=== PATIENT | male | born 1955 | race Caucasian/White ===

== ENCOUNTER → 2017-11-17 | Day surgery (SDC) | payer OTHER ==
[2017-11-16 08:26] VITALS: BMI 40.0
[~2017-11-17] VITALS: Ht 167.6 cm; Wt 112.3 kg
[~2017-11-17] MED LIST: ACET-1256 PO; AMLO-114 PO; ATOR10TA82 PO; ATROPINE SULFATE 0.1 MG/ML 5ML SYR IV PRN; BUPIVACAINE 0.5 % 5 MG/1 ML MPF 30ML VIAL ONE; CEFAZOLIN 2000MG IV PUSH 15 ML IV SCH; CONRAY 60% 50 ML VIAL ONE; EpHEDrine SULFATE INJ 50 MG/ML AMP IV PRN; FENTANYL CITRATE INJ 50 MCG/1 ML 2 ML VIAL IV PRN; FENTANYL CITRATE INJ 50 MCG/1 ML 2 ML VIAL ONE; HEPARIN SOD (PORCINE) 1000 UNIT/ML 10 ML VIAL ONE; HYDROmorphone INJ 0.5 MG/0.5 ML SYR IV PRN; IMD/2 PO; LACTATED RINGER'S 1000ML 1,000 ML IV SCH; LIDOCAINE HCL 2% 2 ML VIAL (20MG/ML) ONE; LIDOCAINE/EPINEPHRINE 1% 20 ML VIAL ONE; METF1TAB53 PO; MIDAZOLAM HCL 1 MG/ML 2ML VIAL ONE; ONDA-170 PO; ONDANSETRON INJ 2 MG/ML 2 ML VIAL IV PRN; OXYCODONE/ACETAMINOPHEN 5-325 TAB PO PRN; PROC1TAB5 PO; PROMETHAZINE HCL INJ 12.5 MG in SODIUM CHLORIDE 0.9% 50ML 50 ML IV PRN; PROPOFOL IV EMULSION 10 MG/ML 20 ML VIAL IV ONE; SODIUM CHLORIDE 0.9% 1000ML 1,000 ML IV SCH
[2017-11-17 07:07] VITALS: BP 160/77; PULSE 98; TEMP 36.6; O2SAT 95; Ht 167.6 cm; Wt 112.3 kg
--- NOTE | 2017-11-17 08:04 | History & Physical Bridge Note ---
H&P Re-Evaluation Bridge Note: I have examined the patient, reviewed the History & Physical and in the interval since the performance of the History & Physical I have noted the following changes of clinical significance: No changes noted
--- NOTE | 2017-11-17 09:17 | [facility] Post Operative Brief Note ---
Immediate Operative Summary Operative Date Nov 17, 2017. Pre-Operative Diagnosis Metastatic colorectal cancer; need for venous access Post-Operative Diagnosis Same as preop Procedure(s) Performed Insertion of Mediport into right internal jugular vein with real time ultrasound guidance and fluoroscopy Surgeon Dr. Duffy Office Helper Surgeon(s) Gina Carvajal PA-C Estimated Blood Loss 6 cc Findings Consistent with Post-Op Diagnosis Specimens none, as per surgeon Drains None Anesthesia Type MAC Complication(s) none Disposition Accompanied Pt To Recover: no Disposition: Recovery Room / PACU
--- NOTE | 2017-11-17 09:21 | [facility] Operative Report ---
Operative Report Operative Date Nov 17, 2017. Pre-Operative Diagnosis Metastatic colorectal cancer; need for venous access Post-Operative Diagnosis Same Procedure(s) Performed Right internal jugular vein port placement with real-time ultrasound guidance and fluoroscopy Surgeon Dr. Duffy Dyno Technician Surgeon(s) Gina Carvajal PA-C Estimated Blood Loss 6 cc Findings Right internal jugular vein accessed with real-time ultrasound guidance. Port placed with catheter tip at cavoatrial junction confirmed by fluoroscopy. Specimens none, as per surgeon Drains None Anesthesia MAC/local Complication(s) None Disposition Recovery Room / PACU Indications 62-year-old male with metastatic colorectal cancer. He had a prior port in the left subclavian vein, however he developed thrombosis and it was removed. Plan for port placement. The risks of the procedure were discussed, all questions were answered, and the patient agreed to proceed with surgery as planned. Description of Procedure The patient was properly identified, consented, and taken to the operating room where he was placed in the supine position with both arms tucked and a shoulder roll placed vertically. Monitored anesthesia care was induced. SCDs and a safety belt were placed. Preoperative antibiotics were administered. The patient's chest and neck was prepped and draped in the standard sterile fashion. Surgical timeout was performed and all parties were in agreement that this was the correct patient and procedure to be performed and we continued as planned. The patient was placed in Trendelenburg position. Local anesthetic was injected along the skin incision. Using real-time ultrasound guidance the right internal jugular vein was accessed using the access needle. The wire was placed and the needle was removed. Fluoroscopy confirmed placement into the internal jugular vein extending into the superior vena cava. A transverse skin incision was made in the right chest and a pocket was created for the port. A subcutaneous tunnel was created and the catheter was brought from the neck incision into the chest incision. The dilator and peel-away sheath were inserted over the wire. The catheter was then inserted through the peel-away sheath and fluoroscopy confirmed placement into the superior vena cava. The catheter was cut and attached to the port. The port was secured into place with 3-0 Prolene sutures. A final x-ray revealed good placement of the port. The wound was irrigated and hemostasis was confirmed. The skin was closed with interrupted 3-0 Vicryl deep dermal sutures, followed by 4-0 Monocryl running subcuticular suture. Dermabond was placed over the wound. The port was accessed and ericka blood easily and flushed easily. It was flushed with heparinized saline. The patient taken to the PACU where he recovered without apparent incident. All sponge, instrument and needle counts were correct at the conclusion of the procedure. The patient tolerated the procedure well. The physician's engineer first assistant was present and scrubbed for the entirety of the case , and was essential in positioning the patient, prepping and draping, retraction and exposure, placement of the port, closure of the wounds, and placement of dressings. I attest to the content of the Intraoperative Record and any orders documented therein. Any exceptions are noted below.
--- NOTE | 2017-11-17 09:26 | [facility] Operative Report ---
Operative Report Operative Date Nov 17, 2017. Pre-Operative Diagnosis Metastatic colorectal cancer; need for venous access Surgeon Dr. Duffy Findings Real-time ultrasound guidance was used to access the right internal jugular vein. Fluoroscopy was used to confirm placement of the catheter to the cavoatrial junction. A total of 25 seconds of fluoroscopy time was used. Disposition Recovery Room / PACU I attest to the content of the Intraoperative Record and any orders documented therein. Any exceptions are noted below.
--- NOTE | 2017-11-17 09:31 | Discharge Instructions ---
Discharge Instructions Date of Service Nov 17, 2017. Admission Reason for Admission: Adenocarcinoma Sigmoid Colon, Type 2 Diabetes Discharge Discharge Diagnosis / Problem: Adenocarcinoma Sigmoid Colon, Type 2 Diabetes Discharge Goals Goal(s): Decrease discomfort, Improve function Activity Recommendations Activity Limitations: as noted below Lifting Limitations: no more than 10 pounds Exercise/Sports Limitations: gradually increase as tolerated May Resume Sexual Activity: when tolerated Shower/Bathe: tomorrow Driving or Machine Use: resume 1 day after discharge . Instructions / Follow-Up Instructions / Follow-Up Please contact the General Surgery [facility] at [phone] with any questions or concerns. You have surgical glue, Dermabond, over your incisions. You may shower tomorrow , but please do not soak or scrub your incisions. You may use over the counter pain medication as needed for pain control. Please use as directed. Current Hospital Diet Patient's current hospital diet: Discharge Diet Recommended Diet: Regular Diet Procedures Procedures Performed: Insertion of Mediport into right internal jugular vein with real time ultrasound guidance and fluoroscopy Pending Studies Studies pending at discharge: no Medical Emergencies . Who to Call and When: Medical Emergencies: If at any time you feel your situation is an emergency, please call 911 immediately. . Non-Emergent Contact Non-Emergency issues call your: Primary Care Provider, Surgeon Call Non-Emergent contact if: temperature is above 101.5, your pain is not controlled, wound has increased drainage, wound has increased redness . "Provider Documentation" section prepared by Do Carvajal. .
--- NOTE | 2017-11-17 09:59 | DIAGNOSTIC IMAGING REPORT ---
CHEST ONE VIEW PORTABLE CLINICAL HISTORY: s/p port placement; pt in PACU tube position COMPARISON STUDY: No previous studies for comparison. FINDINGS: Central catheter place in superior vena cava. No evidence pneumothorax. The lungs are considered clear. IMPRESSION: Central catheter placed in the superior vena cava. No evidence for pneumothorax. The above report was generated using voice recognition software. It may contain grammatical, syntax or spelling errors. Electronically signed by: Gene Mantilla M.D. 11/17/2017 9:58 AM Dictated Date/Time: 11/17/2017 9:57 AM
[2017-11-17 10:10] VITALS: BP 120/68; PULSE 80; TEMP 36.8; O2SAT 92
[2017-11-17 10:40] VITALS: BP 139/71; PULSE 81; TEMP 36.5; O2SAT 94
== END | disposition home or self-care (01) ==
LOC: C.ACU 06:36
PROVIDERS: ATTEND Surgery
DX: C78.5 Secondary malignant neoplasm of large intestine and rectum (principal); G47.33 Obstructive sleep apnea (adult) (pediatric); Z86.718 Personal history of other venous thrombosis and embolism; E66.01 Morbid (severe) obesity due to excess calories; E11.9 Type 2 diabetes mellitus without complications; E78.5 Hyperlipidemia, unspecified; I10 Essential (primary) hypertension; Z98.890 Other specified postprocedural states; Z79.899 Other long term (current) drug therapy; Z68.41 Body mass index [BMI] 40.0-44.9, adult

== ENCOUNTER 2020-09-26 16:46 | Inpatient (IN) ==
[2020-09-26] MEDS ORDERED: SODIUM CHLORIDE 0.9% 500 ML IV SCH (18:15)
[2020-09-26] MEDS ORDERED: SODIUM CHLORIDE 0.9% 1000ML 1,000 ML IV SCH ×2 (18:15→23:51)
[2020-09-26] MEDS ORDERED: ONDANSETRON INJ 2 MG/ML 2 ML VIAL IV STA (18:19)
[2020-09-26] MEDS ORDERED: diphenhydrAMINE 50 MG/ML VIAL IV STA (18:19)
[2020-09-26 19:01] LABS: Hematocrit (blood only) 39.7 % (42-52); Hemoglobin 12.8 g/dL (14.0-18.0); Mean Corpuscular Hemoglobin 32.5 pg (25-34); Mean Corpuscular Hgb Conc 32.2 g/dL (32-36); Mean Corpuscular Volume 100.8 fL (80-100); Nucleated RBC # (auto) 0.02 K/uL (0-0); Nucleated RBC % (auto) 1.1 %; RDW Coefficient of Variation 16.3 % (11.5-14.5); RDW Standard Deviation 59.7 fL (36.4-46.3); Red Blood Count 3.94 M/uL (4.7-6.1); White Blood Count 1.78 K/uL (4.8-10.8)
[2020-09-26 19:24] LABS: BUN Creatinine Ratio 10.6 (10-20); Calcium 8.9 mg/dl (8.5-10.1); Creatinine Clr Calc Pharmacy 42.3 ml/min; Est GFR (African American) 40.5; Est GFR (Non-African American) 34.9; Potassium 4.4 mmol/L (3.5-5.1)
[2020-09-26 19:27] LABS: Albumin Globulin Ratio 0.7 (0.9-2); Bilirubin,Total 0.6 mg/dl (0.2-1); Globulin 4.2 gm/dl (2.5-4.0); Total Protein 7.2 gm/dl (6.4-8.2)
[2020-09-26] MEDS ORDERED: SODIUM CHLORIDE 0.9% 1000ML 500 ML IV ONE ×2 (19:33→22:12)
[2020-09-26] MEDS ORDERED: CEFEPIME 2,000 MG/20 ML VIAL IV STA (19:44)
[2020-09-26 19:57] LABS: Mean Platelet Volume 10.5 fL (7.4-10.4); Platelet Count 74 K/uL (130-400)
[2020-09-26 19:58] LABS: Immature Granulocytes # (auto) 0.01 K/uL (0.00-0.02); Immature Granulocytes % (auto) 0.6 %; Lymphocytes # (auto) 0.59 K/uL (1.2-3.4); Lymphocytes % (auto) 33.1 %; Monocytes # (auto) 0.12 K/uL (0.11-0.59); Monocytes % (auto) 6.7 %; Neutrophils # (auto) 1.06 K/uL (1.4-6.5); Neutrophils % (auto) 59.6 %
--- NOTE | 2020-09-26 22:13 | Emergency Department Note ---
Impression & Plan Sepsis, Elevated lactic acid level, Colon carcinoma metastatic to multiple sites ED Provider Note NAME: BRENNAN GAMBINO AGE: 65 SEX: M ARRIVES VIA: Walk-In INFORMANT: Patient, ED PROVIDER(S): Nancy Marin MD CHIEF COMPLAINT: Allergic reaction, chemo PLAN: Disposition: Inpatient Condition: Guarded Referral: Hospitalist MEDICAL DECISION MAKING: This patient was evaluated and appeared to be in no significant distress. Patient was given 50 mg of IV Benadryl and hydrated with normal saline solution. Patient's laboratory work is concerning for a creatinine of 1.98 and a lactate of 6.8. Blood cultures are pending. Patient was medicated with 2 g of IV cefepime. WBC is 1.78. Covid swab is negative. Patient's case was discussed with the hospitalist service who will evaluate the patient for further management. On my reevaluation of the patient, he was tachycardic at 120 bpm. He was warm to touch and seem to have tachypnea. His oxygen saturations remained stable on room air. Patient's temperature was 99.5. He was given 1 g of p.o. Tylenol, IV normal saline solution bolus of 1 L. Triage Nursing notes reviewed. Additional history obtained from Prior medical records reviewed Vital Signs: reviewed and remarkable for tachycardia Differential diagnosis: Viral syndrome, line infection, medication reaction, otitis, pharyngitis, pneumonia, influenza, meningitis, urinary tract infection, sepsis, bacteremia, as well as other pathologies. ER treatment provided: IV NSS IV cefepime PO Tylenol Diagnostics interpreted by me: ECG: ST at 122 bpm, normal ST segment, normal QTc 416, no PVC, no PAC Cardiac Monitoring: an order for cardiac monitoring was placed and pt was noted to be in a ST at 105 bpm Laboratory studies: See below Consultation(s): hospitalist HPI: 65/M arrives for evaluation of "allergic reaction" to chemo today. Pt has stage 4 colon CA with mets to lung and liver. He was given chemo at the cancer center today and then sent home with a different medication infusing through his port. On his way home he developed chills and nausea. He contacted the cancer center and turned off the chemo. Since that time the pt has felt improved. He states he did have one episode of "sweats" in the waiting room. He denies fever, CP, new cough, abd pain, V/d. He denies COVID exposure. ROS: See above HPI for pertinent positives & negatives. A total of 10 systems reviewed and were otherwise negative. PAST MEDICAL HISTORY:See Below PAST SURGICAL HISTORY:See Below FAMILY HISTORY:See Below SOCIAL HISTORY:See Below HOME MEDICATIONS:See Below ALLERGIES:See Below VITALS:See Below PHYSICAL EXAMINATION: Vital signs reviewed. General: Chronically ill appearing 65 yo male, in no significant distress. HEENT: No scleral icterus, PERRLA, neck supple. Atraumatic. Cardiovascular: tachycardic but regular, no extra sounds. Pulmonary: Clear to auscultation bilaterally, increased work of breathing. Abdomen: Soft, obese, nontender, nondistended, positive bowel sounds. Musculoskeletal: Atraumatic, no peripheral edema. Neurologic: Patient awake alert and oriented x 3 Skin: Warm, dry, no rash I have personally spent greater than 45 minutes of critical care time in the direct management of this patient. This includes bedside care, interpretation of diagnostic studies, and testing, discussion with consultants, patient, and family members, and other required patient management activities. This 45 minutes is in excess of all separately billable procedures. Nancy Marin MD Past Med/Surg History Medical History Colon carcinoma metastatic to multiple sites Diabetes Dyslipidemia Social History Smoking Status: Never smoker Preferred Language: Sammarinese Feels Safe at Home: Yes Allergies Allergies Allergy/AdvReac Type Severity Reaction Status Date / Time No Known Allergies Allergy Unverified 09/26/20 20:59 Home Meds Home Medications Medication Instructions Recorded Confirmed acetaminophen [Tylenol Extra 1,000 mg PO Q6H PRN 09/26/20 09/26/20 Strength] albuterol sulfate [Ventolin HFA] 2 - 3 puff INHALATION .Q2-3HRS PRN 09/26/20 09/26/20 amlodipine 10 mg PO DAILY 09/26/20 09/26/20 atorvastatin 10 mg PO DAILY 09/26/20 09/26/20 empagliflozin [Jardiance] 10 mg PO DAILY 09/26/20 09/26/20 metformin 1,000 mg PO BID 09/26/20 09/26/20 Results & Data (ED) Vital Signs Vital Signs - 24 hr 09/26/20 16:57 09/26/20 18:38 09/26/20 18:52 Temperature 37.3 C Temperature Source Temporal Artery Scan Pulse Rate 127 H 105 H 105 H Pulse Rate from SpO2 Sensor 104 H 105 H Respiratory Rate 18 26 H 28 H Respiratory Effort / Characteristics Non-Labored Spontaneous Respiratory Depth Normal Respiratory Pattern Regular Blood Pressure 107/63 91/51 L Blood Pressure Mean 77 64 Blood Pressure Position Sitting Pulse Oximetry 93 91 91 Oxygen Delivery Method Room Air Sepsis Recent Fever Within 48 Hours No Sepsis New/Unexplained Change in Mental Status N/A Sepsis Action Taken by Nursing No Action Required 09/26/20 19:00 09/26/20 19:01 09/26/20 19:30 Temperature Temperature Source Pulse Rate 102 H 103 H 104 H Pulse Rate from SpO2 Sensor 102 H 105 H 104 H Respiratory Rate 27 H 26 H 15 Respiratory Effort / Characteristics Respiratory Depth Respiratory Pattern Blood Pressure 98/51 L Blood Pressure Mean 66 Blood Pressure Position Pulse Oximetry 90 90 Oxygen Delivery Method Sepsis Recent Fever Within 48 Hours Sepsis New/Unexplained Change in Mental Status Sepsis Action Taken by Nursing 09/26/20 19:31 09/26/20 19:32 09/26/20 19:33 Temperature Temperature Source Pulse Rate 105 H 106 H 107 H Pulse Rate from SpO2 Sensor 105 H 107 H 106 H Respiratory Rate 14 24 24 Respiratory Effort / Characteristics Respiratory Depth Respiratory Pattern Blood Pressure 107/58 L Blood Pressure Mean 74 Blood Pressure Position Pulse Oximetry Oxygen Delivery Method Sepsis Recent Fever Within 48 Hours Sepsis New/Unexplained Change in Mental Status Sepsis Action Taken by Nursing 09/26/20 20:00 09/26/20 20:01 09/26/20 20:30 Temperature Temperature Source Pulse Rate 104 H 105 H 109 H Pulse Rate from SpO2 Sensor 105 H 105 H 109 H Respiratory Rate 29 H 29 H 30 H Respiratory Effort / Characteristics Respiratory Depth Respiratory Pattern Blood Pressure 110/57 L 110/62 Blood Pressure Mean 74 78 Blood Pressure Position Pulse Oximetry 96 97 97 Oxygen Delivery Method Sepsis Recent Fever Within 48 Hours Sepsis New/Unexplained Change in Mental Status Sepsis Action Taken by Nursing 09/26/20 20:31 09/26/20 21:00 09/26/20 21:01 Temperature Temperature Source Pulse Rate 110 H 115 H 113 H Pulse Rate from SpO2 Sensor 110 H Respiratory Rate 30 H 31 H 30 H Respiratory Effort / Characteristics Respiratory Depth Respiratory Pattern Blood Pressure 124/62 Blood Pressure Mean 82 Blood Pressure Position Pulse Oximetry 97 Oxygen Delivery Method Sepsis Recent Fever Within 48 Hours Sepsis New/Unexplained Change in Mental Status Sepsis Action Taken by Nursing 09/26/20 21:30 09/26/20 21:31 09/26/20 22:00 Temperature Temperature Source Pulse Rate 119 H 120 H 126 H Pulse Rate from SpO2 Sensor 119 H 120 H Respiratory Rate 30 H 25 H 22 Respiratory Effort / Characteristics Respiratory Depth Respiratory Pattern Blood Pressure 127/69 140/120 H Blood Pressure Mean 88 126 Blood Pressure Position Pulse Oximetry 92 92 Oxygen Delivery Method Sepsis Recent Fever Within 48 Hours Sepsis New/Unexplained Change in Mental Status Sepsis Action Taken by Nursing 09/26/20 22:01 09/26/20 22:09 09/26/20 22:10 Temperature Temperature Source Pulse Rate 127 H 125 H 126 H Pulse Rate from SpO2 Sensor Respiratory Rate 18 38 H Respiratory Effort / Characteristics Respiratory Depth Respiratory Pattern Blood Pressure 149/78 H Blood Pressure Mean 101 Blood Pressure Position Pulse Oximetry Oxygen Delivery Method Sepsis Recent Fever Within 48 Hours Sepsis New/Unexplained Change in Mental Status Sepsis Action Taken by Nursing 09/26/20 22:30 09/26/20 22:31 09/26/20 22:42 Temperature Temperature Source Pulse Rate 123 H 124 H 121 H Pulse Rate from SpO2 Sensor 122 H Respiratory Rate 38 H 37 H 23 Respiratory Effort / Characteristics Respiratory Depth Respiratory Pattern Blood Pressure 101/63 107/63 Blood Pressure Mean 75 77 Blood Pressure Position Pulse Oximetry 90 Oxygen Delivery Method Sepsis Recent Fever Within 48 Hours Sepsis New/Unexplained Change in Mental Status Sepsis Action Taken by Nursing 09/26/20 23:00 09/26/20 23:01 Temperature Temperature Source Pulse Rate 122 H 123 H Pulse Rate from SpO2 Sensor 121 H 123 H Respiratory Rate 34 H 33 H Respiratory Effort / Characteristics Respiratory Depth Respiratory Pattern Blood Pressure 129/77 Blood Pressure Mean 94 Blood Pressure Position Pulse Oximetry 90 95 Oxygen Delivery Method Sepsis Recent Fever Within 48 Hours Sepsis New/Unexplained Change in Mental Status Sepsis Action Taken by [facility] Medications Current Medication List: was personally reviewed by me Laboratory Data Attestation: I reviewed the patient's lab results. Result diagrams: 09/26/20 18:29 09/26/20 18:29 Lab Results 09/26/20 09/26/20 09/26/20 Range/Units 18:29 18:29 18:29 WBC 1.78 L (4.8-10.8) K/uL RBC 3.94 L (4.7-6.1) M/uL Hgb 12.8 L (14.0-18.0) g/dL Hct 39.7 L (42-52) % MCV 100.8 H (80-100) fL MCH 32.5 (25-34) pg MCHC 32.2 (32-36) g/dL RDW Std Deviation 59.7 H (36.4-46.3) fL RDW Coeff of Jeff 16.3 H (11.5-14.5) % Plt Count 74 L (130-400) K/uL MPV 10.5 H (7.4-10.4) fL Immature Gran % (Auto) 0.6 % Neut % (Auto) 59.6 % Lymph % (Auto) 33.1 % Dale % (Auto) 6.7 % Eos % (Auto) 0.0 % Baso % (Auto) 0.0 % Neut # (Auto) 1.06 L (1.4-6.5) K/uL Lymph # (Auto) 0.59 L (1.2-3.4) K/uL Dale # (Auto) 0.12 (0.11-0.59) K/uL Eos # (Auto) 0.00 (0-0.5) K/uL Baso # (Auto) 0.00 (0-0.2) K/uL Immature Gran # (Auto) 0.01 (0.00-0.02) K/uL Absolute Nucleated RBC 0.02 H (0-0) K/uL Nucleated RBC % (auto) 1.1 % Sodium 138 (136-145) mmol/L Potassium 4.4 (3.5-5.1) mmol/L Chloride 107 (98-107) mmol/L Carbon Dioxide 21 (21-32) mmol/L Anion Gap 10.0 (3-11) BUN 21 H (7-18) mg/dl Creatinine 1.98 H (0.6-1.4) mg/dl Est Cr Clr Drug Dosing 42.3 ml/min Est GFR ( Amer) 40.5 Est GFR (Non-Af Amer) 34.9 BUN/Creatinine Ratio 10.6 (10-20) Glucose 219 H (70-99) mg/dl Lactate 6.8 H* (0.4-2.0) mmol/L Calcium 8.9 (8.5-10.1) mg/dl Total Bilirubin 0.6 (0.2-1) mg/dl AST 41 H (15-37) U/L ALT 35 (12-78) U/L Alkaline Phosphatase 134 H (45-117) U/L Total Protein 7.2 (6.4-8.2) gm/dl Albumin 3.0 L (3.4-5.0) gm/dl Globulin 4.2 H (2.5-4.0) gm/dl Albumin/Globulin Ratio 0.7 L (0.9-2) COVID-19 Eval Order SARS-CoV-2, RNA, NAAT (NEGATIVE) 09/26/20 09/26/20 09/26/20 Range/Units 18:39 18:39 21:10 WBC (4.8-10.8) K/uL RBC (4.7-6.1) M/uL Hgb (14.0-18.0) g/dL Hct (42-52) % MCV (80-100) fL MCH (25-34) pg MCHC (32-36) g/dL RDW Std Deviation (36.4-46.3) fL RDW Coeff of Jeff (11.5-14.5) % Plt Count (130-400) K/uL MPV (7.4-10.4) fL Immature Gran % (Auto) % Neut % (Auto) % Lymph % (Auto) % Dale % (Auto) % Eos % (Auto) % Baso % (Auto) % Neut # (Auto) (1.4-6.5) K/uL Lymph # (Auto) (1.2-3.4) K/uL Dale # (Auto) (0.11-0.59) K/uL Eos # (Auto) (0-0.5) K/uL Baso # (Auto) (0-0.2) K/uL Immature Gran # (Auto) (0.00-0.02) K/uL Absolute Nucleated RBC (0-0) K/uL Nucleated RBC % (auto) % Sodium (136-145) mmol/L Potassium (3.5-5.1) mmol/L Chloride (98-107) mmol/L Carbon Dioxide (21-32) mmol/L Anion Gap (3-11) BUN (7-18) mg/dl Creatinine (0.6-1.4) mg/dl Est Cr Clr Drug Dosing ml/min Est GFR ( Amer) Est GFR (Non-Af Amer) BUN/Creatinine Ratio (10-20) Glucose (70-99) mg/dl Lactate 6.7 H* (0.4-2.0) mmol/L Calcium (8.5-10.1) mg/dl Total Bilirubin (0.2-1) mg/dl AST (15-37) U/L ALT (12-78) U/L Alkaline Phosphatase (45-117) U/L Total Protein (6.4-8.2) gm/dl Albumin (3.4-5.0) gm/dl Globulin (2.5-4.0) gm/dl Albumin/Globulin Ratio (0.9-2) COVID[facility]19 [facility] SARS-[facility]-2, RNA, NAAT NEGATIVE (NEGATIVE) Administered Medications Sodium Chloride (Nss 1000ml) 1,000 mls @ 125 mls/hr IV .Q8H ELBERT Stop: 09/27/20 02:14 Last Infusion: 09/26/20 22:17 Dose: 0 mls/hr Documented by: [id number] Admin: 09/26/20 19:38 Dose: 125 mls/hr Documented by: [id number] Discontinued Medications Acetaminophen (Acetaminophen 500 Mg Tab) 1,000 mg PO NOW STA Stop: 09/26/20 22:22 Last Admin: 09/26/20 22:50 Dose: 1,000 mg Documented by: [id number] Diphenhydramine HCl (Diphenhydramine 50 Mg/Ml Vial) 50 mg IV NOW STA Stop: 09/26/20 18:20 Last Admin: 09/26/20 18:51 Dose: 50 mg Documented by: [id number] Sodium Chloride (Nss) 500 mls @ 999 mls/hr IV .Q31M ELBERT Stop: 09/26/20 18:45 Last Infusion: 09/26/20 19:22 Dose: 0 mls/hr Documented by: [id number] Admin: 09/26/20 18:46 Dose: 999 mls/hr Documented by: [id number] Sodium Chloride (Nss 1000ml) 500 mls @ 999 mls/hr IV .Q31M ONE Stop: 09/26/20 20:03 Last Infusion: 09/26/20 20:15 Dose: 0 mls/hr Documented by: [id number] Admin: 09/26/20 19:41 Dose: 999 mls/hr Documented by: [id number] Cefepime HCl (Maxipime) 2,000 mg in 20 mls @ 5 mls/min IV NOW STA; Protocol Stop: 09/26/20 19:47 Last Admin: 09/26/20 19:52 Dose: 5 mls/min Documented by: [id number] Sodium Chloride (Nss 1000ml) 500 mls @ 999 mls/hr IV .Q31M ONE Stop: 09/26/20 22:42 Last Admin: 09/26/20 22:17 Dose: 999 mls/hr Documented by: [id number] Ondansetron HCl (Ondansetron Inj 2 Mg/Ml 2 Ml Vial) 4 mg IV NOW STA Stop: 09/26/20 18:20 Last Admin: 09/26/20 18:51 Dose: 4 mg Documented by: [id number] Discharge Plan Visit Data Chief Complaint: Allergic Reaction Stated Complaint: ALLERGIC REACTION, DR REF OVER ED Provider: Nancy Marin Discharge Problem: Sepsis, Elevated lactic acid level, Colon carcinoma metastatic to multiple sites Discharge Instructions Interventions: ED Discharge Assessment Last Done: 09/26/20 23:03 Forms [facility] Prescriptions Prescriptions: No Action atorvastatin 10 mg tablet 10 mg PO DAILY RF: 0 amlodipine 10 mg tablet 10 mg PO DAILY RF: 0 metformin 1,000 mg tablet 1,000 mg PO BID RF: 0 albuterol sulfate [Ventolin HFA] 90 mcg/actuation HFA aerosol inhaler 2 - 3 puff INHALATION .Q2-3HRS PRN (Reason: Shortness Of Breath Or Wheezing) RF: 0 Jardiance 10 mg tablet 10 mg PO DAILY RF: 0 acetaminophen [Tylenol Extra Strength] 500 mg Tablet 1,000 mg PO Q6H PRN (Reason: Pain) RF: 0 Referrals Referrals: Geronimo Valdes [Primary Care Provider] - Discharge Problem: Sepsis Qualifiers: Sepsis type: sepsis due to unspecified organism Sepsis acute organ dysfunction status: unspecified Qualified Code(s): A41.9 - Sepsis, unspecified organism
[2020-09-26] MEDS ORDERED: ACETAMINOPHEN 500 MG TAB PO STA (22:21)
--- NOTE | 2020-09-26 22:39 | History & Physical Report ---
Date of Service September 26, 2020 Assessment & Plan (1) Sepsis: Patient is a 65 year old male with PMHx Metastatic Colorectal Cancer, HTN, HLD, DM2, HERNAN who presented after having nausea and chills while receiving his chemotherapy. Severe Sepsis in Immunocompromised patient -Patient initially with hypothermia, tachycardia, tachypnea, WBC 1.78k/uL, Lactate 6.8 -ANC 1061 cells/uL Mild Neutropenia -3500ml NSS bolus, 50mg Benadryl, 1g Tylenol, and 2g Cefepime in ED -While possible that patient's symptoms were secondary to chemotherapy, with elevated lactate and other signs of sepsis will cover empirically -No obvious signs of infection, would continue to monitor patients port closely -Received a dose of Cefepime in ED, start empiric Vancomycin and Zosyn -Blood cultures pending -Will give 1L bolus LR and then NSS 100ml/hr -Hold home amlodipine ANA -Creatinine elevated 1.98 on admission, base ~1 -Suspect pre-renal and expect improvement with appropriate fluid resuscitation -BMP in AM DM2 -Hold home Jardiance and Metformin -Will cover with SSI inpatient, consider basal bolus if sugars run high HLD -Continue home atorvastatin HERNAN -CPAP qhs Dispo: M/S Telemetry for closer monitoring, need for IV antibiotics. FEN: DM2 diet, NSS 100ml/hr DVT: Heparin TID, once renal function improves consider change to Enoxaparin for active cancer pt Code: Conditional - NO INTUBATION, okay for CPR (2) Colon carcinoma metastatic to multiple sites: (3) Dyslipidemia: (4) Diabetes: History of Present Illness Chief Complaint: Nausea and Chills Primary Care Provider: Geronimo Valdes Patient is a 65 year old male with PMHx Metastatic Colorectal Cancer, HTN, HLD, DM2, HERNAN who presented after having nausea and chills while receiving his chemotherapy. Patient notes that he has been on his current regiment of chemotherapy since 09/12/20 and that he had gone to his oncologists office today for his chemo infusion bag. He notes he was sent home with the infusion (typically lasting 36 hours), but shortly after felt sweaty and had chills. He notes that his temperature taken at that time was 94F. He called his oncologist Dr. Zabala's office and was instructed to stop his infusion and to present to the ED for evaluation. He notes that after stopping the infusion his symptoms significantly improved. He states that he has had similar issues in the past with chemotherapy "a few years ago." Currently he denies any chest pain, shortness of breath, worsening cough (notes a chronic ongoing since prior to starting chemotherapy), abdominal pain, diarrhea, dysuria, joint pain. Med Hx - Metastatic Colorectal Cx, HTN, HLD, DM2, HERNAN Surg Hx - Partial colectomy 1994, Soc Hx - No tobacco or illicit drug use. 1-2 beers/month Fam Hx - Father passed from CO at 58, Mother passed from CHF exacerbation 70's Allergies Allergy/AdvReac Type Severity Reaction Status Date / Time No Known Allergies Allergy Unverified 09/26/20 20:59 Home Medications Medication Instructions Recorded Confirmed Type acetaminophen [Tylenol Extra 1,000 mg PO Q6H PRN 09/26/20 09/26/20 History Strength] albuterol sulfate [Ventolin HFA] 2 - 3 puff INHALATION .Q2-3HRS PRN 09/26/20 09/26/20 History amlodipine 10 mg PO DAILY 09/26/20 09/26/20 History atorvastatin 10 mg PO DAILY 09/26/20 09/26/20 History empagliflozin [Jardiance] 10 mg PO DAILY 09/26/20 09/26/20 History metformin 1,000 mg PO BID 09/26/20 09/26/20 History Past Med/Surg History Medical History Colon carcinoma metastatic to multiple sites Diabetes Dyslipidemia Social History Smoking Status: Never smoker Second Hand Exposure: Yes; Do You Dip or Chew Tobacco: No; Tobacco Cessation Education Requested by Patient: No Hx Alcohol Use: No Hx Substance Use: No Preferred Language: Kinyarwanda Dancing Master Required: No Beliefs That Will Affect Care: None Current Living Situation: Alone Other Information That Helps Us Care for You: No Feels Safe at Home: Yes Safety Concerns: Feels Safe At This Time Assistive Devices: Oxygen - Continuous Review of Systems Review of Systems: All systems reviewed & are unremarkable except as noted in Subjective Physical Exam Constitutional: well developed, well nourished and cooperative; no acute distress Eyes: PERRL, conjunctivae normal, anicteric sclerae ENMT: external ear and nose normal, oropharynx normal Mouth: + poor dentition Respiratory: normal respiratory effort, lungs clear to auscultation Cardiovascular: Rate/Rhythm: + tachycardic Heart Sounds: no murmur Vessels: no JVD Extremities: no calf tenderness and no edema Chest (Breasts): Chest: + vascular access device or port (Non-erythematous, no crepitice, non-tender on palpation of surrounding area) Gastrointestinal (Abdomen): Inspection/Auscultation: abdomen normal to inspection and normal bowel sounds; abdomen not distended Percussion/Palpation: abdomen soft; abdomen nontender, no guarding and abdomen not rigid Musculoskeletal: no cyanosis or clubbing, extremities motor strength 5/5 Skin: no rashes, warm and dry Neurologic: PERRL, EOMI, accommodation nl, no face palsy, no dysarthria Psychiatric: A+Ox3, euthymic affect Results & Data Results & [facility] ([facility]) Vital Signs (Past 12 Hours) Vital Signs Temp Pulse Resp BP Pulse Ox 09/26/20 22:09 125 H 149/78 H 09/26/20 22:01 127 H 18 09/26/20 22:00 126 H 22 140/120 H 09/26/20 21:31 120 H 25 H 92 09/26/20 21:30 119 H 30 H 127/69 92 09/26/20 21:01 113 H 30 H 09/26/20 21:00 115 H 31 H 124/62 09/26/20 20:31 110 H 30 H 97 09/26/20 20:30 109 H 30 H 110/62 97 09/26/20 20:01 105 H 29 H 97 09/26/20 20:00 104 H 29 H 110/57 L 96 09/26/20 19:33 107 H 24 09/26/20 19:32 106 H 24 107/58 L 09/26/20 19:31 105 H 14 09/26/20 19:30 104 H 15 90 09/26/20 19:01 103 H 26 H 90 09/26/20 19:00 102 H 27 H 98/51 L 09/26/20 18:52 105 H 28 H 91 09/26/20 18:38 105 H 26 H 91/51 L 91 09/26/20 16:57 37.3 C 127 H 18 107/63 93 Code Status & VTE Plan VTE Prophylaxis Plan VTE Prophylaxis will be ordered: Yes Supervising Physician Co-Signing Physician Notes Attending addendum: I have physically seen this patient, have supervised the medical residents activities, and agree with the H&P unless as otherwise noted. Assessment and Plan: Severe sepsis/immunocompromised patient Cover empirically with vancomycin IV and Zosyn IV. Follow urine cultures and blood cultures Given 3500 mils of normal saline in the ED Give additional 1 L bolus of LR, then at 100 mils per hour Hold amlodipine due to borderline blood pressure Acute kidney injury- Creatinine 1.98 upon admission, with baseline around 1. Repeat BMP in a.m., after rehydration as noted above. Diabetes mellitus- Hold Jardiance and Metformin Placed on Accu-Cheks before meals and at bedtime with NovoLog coverage per scale Hyperlipidemia- Continue atorvastatin Remaining orders and notations as noted Resident Activity Tracking Resident Involvement: Resident Care Provided Care Provided: Adult Hospital Medicine (1) Sepsis Sepsis acute organ dysfunction status: unspecified Sepsis type: sepsis due to unspecified organism Qualified Code(s): A41.9 - Sepsis, unspecified organism
[2020-09-26] MEDS ORDERED: PIPERACILL/TAZOBAC CONSULT ACTIVE PRN (23:51)
[2020-09-26] MEDS ORDERED: ONDANSETRON INJ 2 MG/ML 2 ML VIAL IV PRN (23:51)
[2020-09-26] MEDS ORDERED: ACETAMINOPHEN 325 MG TAB PO PRN (23:51)
[2020-09-26] MEDS ORDERED: SODIUM CHLORIDE 0.9% 1000ML 1,000 ML IV ONE (23:51)
[2020-09-26] MEDS ORDERED: VANCOMYCIN CONSULT ACTIVE PRN (23:51)
[2020-09-27] MEDS ORDERED: PIPERACILLIN/TAZOBACTAM 4.5 GM in DEXTROSE 5% 100 ML IV ONE (01:00)
[2020-09-27] MEDS ORDERED: VANCOMYCIN HCL 2,000 MG in SODIUM CHLORIDE 0.9% 500 ML IV ONE (01:00)
[2020-09-27] MEDS ORDERED: LACTATED RINGER'S 1,000 ML IV ONE (02:15)
[2020-09-27] MEDS ORDERED: CARBOHYDRATES FOR HYPOGLYCEMIA PO PRN (03:27)
[2020-09-27] MEDS ORDERED: DEXTROSE 50% 50 ML SYRINGE IV PRN (03:27)
[2020-09-27] MEDS ORDERED: GLUCOSE 40% GEL 15 GM TUBE PO PRN (03:27)
[2020-09-27] MEDS ORDERED: GLUCAGON FOR INJ 1 MG VIAL SQ PRN (03:27)
[2020-09-27] MEDS ORDERED: GLUCOSE 10 TABS/TUBE PO PRN (03:27)
[2020-09-27] MEDS: ALBUTEROL HFA 8 GM INHALER INH PRN ×2 (05:11→07:57)
[2020-09-27] MEDS ORDERED: PIPERACILLIN/TAZOBACTAM 4.5 GM in DEXTROSE 5% 100 ML IV SCH (06:00)
[2020-09-27] MEDS: HEPARIN SOD 5,000 UNIT/0.5 ML VIAL SQ SCH ×3 (06:04→22:47)
[2020-09-27 07:59] LABS: Hematocrit (blood only) 37.3 % (42-52); Hemoglobin 12.2 g/dL (14.0-18.0); Mean Corpuscular Hemoglobin 32.7 pg (25-34); Mean Corpuscular Hgb Conc 32.7 g/dL (32-36); RDW Coefficient of Variation 16.7 % (11.5-14.5); RDW Standard Deviation 61.4 fL (36.4-46.3); Red Blood Count 3.73 M/uL (4.7-6.1); White Blood Count 3.46 K/uL (4.8-10.8)
[2020-09-27] MEDS: INSULIN ASPART 100 UNITS/ML 3 ML PEN SC SCH ×4 (08:00→20:07)
[2020-09-27] MEDS: ATORVASTATIN 10 MG TAB PO SCH (08:01)
[2020-09-27 08:07] LABS: Mean Platelet Volume 10.6 fL (7.4-10.4); Platelet Count 54 K/uL (130-400)
[2020-09-27 08:09] LABS: Estimated Average Glucose 192 mg/dl; Hemoglobin A1C 8.3 % (4.5-5.6)
--- NOTE | 2020-09-27 08:11 | XRay Report ---
XR chest 1V portable HISTORY: Shortness of breath. COMPARISON: Chest 11/17/2017. FINDINGS: There is diffuse interstitial/vascular thickening. No pneumothorax. No pleural effusions. T he heart remains borderline enlarged. Right jugular Port-A-Cath terminates at the distal SVC. Bilater al pulmonary nodules are better appreciated on the recent CT examination. IMPRESSION: Interval progression of the diffuse interstitial/vascular thickening. This favors pulmonary edema. An atypical pneumonitis cannot be excluded. Bilateral pulmonary nodules are again noted. ACT 112: Negative or not required by law. Electronically signed by: Russell Garcia M.D. 09/27/2020 8:09 AM
[2020-09-27 08:16] LABS: Albumin Level 2.3 gm/dl (3.4-5.0); BUN Creatinine Ratio 15.2 (10-20); Calcium 7.5 mg/dl (8.5-10.1); Creatinine Clr Calc Pharmacy 41.9 ml/min; Est GFR (African American) 39.7; Est GFR (Non-African American) 34.3
[2020-09-27 08:20] LABS: Basophils # (auto) 0.01 K/uL (0-0.2); Basophils % (auto) 0.3 %; Immature Granulocytes % (auto) 2.9 %; Lymphocytes # (auto) 1.15 K/uL (1.2-3.4); Lymphocytes % (auto) 33.2 %; Monocytes # (auto) 0.23 K/uL (0.11-0.59); Monocytes % (auto) 6.6 %; Neutrophils # (auto) 1.97 K/uL (1.4-6.5)
[2020-09-27 08:22] LABS: Albumin Globulin Ratio 0.6 (0.9-2); Bilirubin,Total 1.9 mg/dl (0.2-1); Globulin 3.9 gm/dl (2.5-4.0); Total Protein 6.2 gm/dl (6.4-8.2)
[2020-09-27] MEDS ORDERED: POLYETHYLENE (MIRALAX) 17 GM PACK PO ONE (08:50)
--- NOTE | 2020-09-27 10:24 | Pharmacy Report ---
Pharmacy Abx Dose Short Note - Date of Service September 27, 2020 - Assessment & Plan Assessment Patient is a 65 year old male with PMHx Metastatic Colorectal Cancer, DM2, who presented after having nausea and chills while receiving his chemotherapy Vancomycin for treatment of empiric treatment of sepsis. * SCr Currently elevated. Baseline ~1, currently 2mg/dL * BMI>35 * Blood cultures pending * Immunocompromised due to chemo therapy Plan Vancomycin IV * Estimated PK Parameters: Vd 0.6 L/kg, Denis 0.039 hr-1, t1/2 18 hr * Loading dose: 2000 mg (20 mg/kg) * Maintenance dose: 1500 mg IV (15 mg/kg) every 24 hours * Goal trough level for sepsis : 15 to 20 mcg/mL * Trough level will be ordered if therapy extended beyond 48 hours Piperacillin/tazobactam * 4.5 g bolus administered over 30 minutes, then 4.5 g IV extended infusion every 8 hours for CrCl greater than 20 mL/min * Aggressive dosing selected due to critically ill status/BMI 35 or more Pharmacy will continue to follow and will adjust dose/frequency as necessary. Thank you.
[2020-09-27] MEDS: CEFEPIME 2,000 MG in SYRINGE 0 ML IV SCH ×2 (11:17→22:45)
--- NOTE | 2020-09-27 11:24 | Hospitalist Progress Note ---
Date of Service September 27, 2020 Assessment & Plan (1) Sepsis: Patient is a 65 year old male with PMHx Metastatic Colorectal Cancer, HTN, HLD, DM2, HERNAN who presented after having nausea and chills while receiving his chemotherapy. Sepsis in Immunocompromised patient -Patient initially with hypothermia, tachycardia, tachypnea, WBC 1.78k/uL, Lactate 6.8 -ANC 1061 cells/uL Mild Neutropenia -While possible that patient's symptoms were secondary to chemotherapy, with elevated lactate and other signs of sepsis will cover empirically with vancomycin and cefepime - Blood cultures drawn -No obvious source of infection but patient is immunocompromised and has a histo ry of port infection, if cultures come back positive will consult ID for guidance on port removal if needed -Continuing LR 100ml/hr -Hold home amlodipine ANA with Hype -Creatinine elevated 1.98 on admission, base ~1 - this morning creatinine up to 2 and potassium also elevated to 6. - Creatinine improved to 1.84 and potassium returned to normal range a few hours later -Suspect ANA pre renal secondary to hypotension from sepsis, - Will continue LR at 100 mls/hour Metastatic Colon Cancer Patient with large tumor burden stage IV including mets to the lungs Will need to coordinate with cancer center on discharge as to suitability for further treatments and if bacteremic may need to pull port DM2 -Hold home Jardiance and Metformin -SSI HLD -Continue home atorvastatin HERNAN -CPAP qhs Dispo: M/S Telemetry for closer monitoring, need for IV antibiotics. FEN: DM2 diet, LR 100ml/hr DVT: Heparin TID, once renal function improves consider change to Enoxaparin for active cancer pt Code: Conditional - NO INTUBATION, okay for CPR Admission and Anticipated Discharge Date Admission Date: September 26, 2020 Supervising Physician Co-Signing Physician Notes I personally examined the patient and verified all adhikari points of history and exam, discussed case, and agree with decision making with Dr Lowe. Feeling pretty good overall. No further rigors. Eating well. No cough no chest pain no abdominal pain no urinary symptoms he is voiding well. He notes that it is better than before and less dark than before. No bowel issues. Vitals noted, in general he is awake and alert pleasant no distress. HEENT no rmocephalic atraumatic mucous membranes moist. Breathing unlabored no accessory muscle use good effort. Skin shows no rashes no pallor or icterus. Lungs are clear to auscultation bilaterally no rales rhonchi or wheezes good effort. Abdomen is soft nondistended nontender. Sepsisneutropenic fever type presentation. Technically he was not quite neutropenic as his ANC was 1.06, but given the context right after chemotherapy and his overall suppressed immune system certainly we are treating as though it is a neutropenic sepsis neutropenic fever type of situation. It may all be from cytotoxic chemotherapy, as he is not showing any focal signs or symptoms of infection, but definitely empiric antibiotics are warranted. Continue to follow closely, serial exams, follow-up on cultures. Fortunately appears stable to improved. Acute renal failure, as well as transient hyperkalemiahe really almost looks like a "soft tumor lysis syndrome" type of a pictureobviously he does not have a liquid tumor nor does he have a situation that really would fit with tumor lysis syndrome, but given his renal failure his constitutional symptoms is hyperkalemialikely in large part secondary to his chemotherapy. 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 He was given significant amounts of IV fluids during his initial phase of care whenever he appeared much more unstable, then this was held with concern on pulmonary edema, he is now appears to have clear lungs without any signs or symptoms of pulmonary edema, and we will resume IV fluids but more at just a maintenance rather than resuscitative rate at this time. Otherwise as above. Osmar Funez is feeling much better today, around 1 am when he got up to the floor he felt like he was more or less back to his normal state of health and was just tired. He denies fevers chills, sweats, any pain, any other concerns. He has been drinking plenty of water and urinating well. Tells us his urine has been more or less clear since last night. 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 Review of Systems Review of Systems: All systems reviewed & are unremarkable except as noted in HPI & below Physical Exam Physical Exam: Constitutional: Flushed and fatigued appearing 65 year old man resting comfortably in bed in no apparent distress, easily conversive. Eyes: PERRLA, EOMMI bilaterally ENMT: NAD REspiratory: Regular rate, no increased work of breathing, lung sounds vesicular in all lung mensah Cardiovascular: peripheral pulses intact and equal, no murmurs rubs skips or gallops, regular rate and rhythm, minor lower limb edema, no JVD visible GI: Abdomen Soft/NOn tender SKin: Flushed, somewhat clammy Results & Data Results & Data ([facility]) Vital Signs (Past 12 Hours) Vital Signs Temp Pulse Pulse Resp BP Pulse Ox 09/27/20 08:01 107 H 18 96 09/27/20 08:00 105 H 09/27/20 07:20 37.4 C 108 H 19 122/65 92 09/27/20 05:11 114 H 26 H 92 09/27/20 04:51 37.2 C 119 H 18 115/62 93 09/27/20 04:30 36.8 C 120 H 20 196/78 H 89 L 09/27/20 00:38 123 H 09/27/20 00:23 102 H 16 92 09/27/20 00:02 37.7 C H 121 H 18 111/54 L 91 Resident Activity Tracking Resident Involvement: Resident Care Provided Care Provided: Adult Hospital Medicine (1) Sepsis Sepsis acute organ dysfunction status: unspecified Sepsis type: sepsis due to unspecified organism Qualified Code(s): A41.9 - Sepsis, unspecified organism
[2020-09-27 11:32] LABS: BUN Creatinine Ratio 18.4 (10-20); Calcium 7.5 mg/dl (8.5-10.1); Creatinine Clr Calc Pharmacy 45.8 ml/min; Est GFR (African American) 44.2; Est GFR (Non-African American) 38.2; Potassium 4.9 mmol/L (3.5-5.1)
[2020-09-27] MEDS ORDERED: VANCOMYCIN HCL 1,500 MG in SODIUM CHLORIDE 0.9% 500 ML IV SCH (16:00)
--- NOTE | 2020-09-27 18:29 | Billing Data ---
Date of Service September 27, 2020 Coding Level of Care Code 46809 Subseq Hosp Care Lvl 3
[2020-09-27] MEDS: LACTATED RINGER'S 1,000 ML IV SCH (18:52)
--- NOTE | 2020-09-27 22:48 | Billing Data ---
Date of Service September 27, 2020 Coding Level of Care Code 88279 Initial Inpt Care Lvl 3
[2020-09-28] MEDS: LACTATED RINGER'S 1,000 ML IV SCH ×3 (03:01→19:23)
[2020-09-28] MEDS: HEPARIN SOD 5,000 UNIT/0.5 ML VIAL SQ SCH ×3 (06:57→22:22)
[2020-09-28 07:25] LABS: Hematocrit (blood only) 36.3 % (42-52); Hemoglobin 11.7 g/dL (14.0-18.0); Mean Corpuscular Volume 99.2 fL (80-100); RDW Coefficient of Variation 16.2 % (11.5-14.5); RDW Standard Deviation 58.8 fL (36.4-46.3); Red Blood Count 3.66 M/uL (4.7-6.1); White Blood Count 3.03 K/uL (4.8-10.8)
[2020-09-28 07:43] LABS: BUN Creatinine Ratio 21.2 (10-20); Calcium 8.2 mg/dl (8.5-10.1); Creatinine Clr Calc Pharmacy 66.9 ml/min; Est GFR (African American) 69.9; Est GFR (Non-African American) 60.3; Potassium 4.5 mmol/L (3.5-5.1)
[2020-09-28 08:11] LABS: Mean Corpuscular Hgb Conc 32.2 g/dL (32-36); Mean Platelet Volume 10.6 fL (7.4-10.4); Platelet Count 38 K/uL (130-400)
[2020-09-28 08:16] LABS: Basophils # (auto) 0.01 K/uL (0-0.2); Basophils % (auto) 0.3 %; Eosinophils # (auto) 0.12 K/uL (0-0.5); Immature Granulocytes # (auto) 0.03 K/uL (0.00-0.02); Lymphocytes # (auto) 1.33 K/uL (1.2-3.4); Lymphocytes % (auto) 43.9 %; Monocytes # (auto) 0.27 K/uL (0.11-0.59); Monocytes % (auto) 8.9 %; Neutrophils # (auto) 1.27 K/uL (1.4-6.5); Neutrophils % (auto) 41.9 %; Platelet Estimate Decreased (Normal); Smudge Cells Present
[2020-09-28] MEDS: ATORVASTATIN 10 MG TAB PO SCH (08:50)
[2020-09-28] MEDS ORDERED: CEFEPIME 2,000 MG in SYRINGE 0 ML IV SCH (09:00)
[2020-09-28] MEDS: INSULIN ASPART 100 UNITS/ML 3 ML PEN SC SCH ×4 (09:14→20:31)
[2020-09-28] MEDS ORDERED: VANCOMYCIN HCL 1,500 MG in SODIUM CHLORIDE 0.9% 500 ML IV SCH (10:00)
--- NOTE | 2020-09-28 11:13 | Electrocardiogram Report ---
Test Reason : Blood Pressure : / mmHG Vent. Rate : 122 BPM Atrial Rate : 122 BPM P-R Int : 142 ms QRS Dur : 066 ms QT Int : 292 ms P-R-T Axes : 023 051 006 degrees QTc Int : 416 ms Sinus tachycardia Otherwise normal ECG No previous ECGs available Confirmed by Slick Salazar ([id number]) on 09/28/2020 11:12:56 AM Referred By: Ryan Zabala Confirmed By:Slick Salazar
--- NOTE | 2020-09-28 11:20 | Electrocardiogram Report ---
Test Reason : Blood Pressure : / mmHG Vent. Rate : 108 BPM Atrial Rate : 108 BPM P-R Int : 152 ms QRS Dur : 080 ms QT Int : 318 ms P-R-T Axes : 051 071 028 degrees QTc Int : 426 ms Sinus tachycardia Low voltage QRS Borderline ECG When compared with ECG of 26-SEP-2020 22:45, (unconfirmed) No significant change was found Confirmed by Slick Salazar ([id number]) on 09/28/2020 11:20:30 AM Referred By: Ryan Zabala Confirmed By:Slick Salazar
[2020-09-28] MEDS: CIPROFLOXACIN 250 MG TAB PO SCH ×2 (11:29→22:21)
[2020-09-28] MEDS: DOXYCYCLINE HYCLATE 100 MG CAP PO SCH ×2 (11:31→20:02)
--- NOTE | 2020-09-28 15:34 | Hospitalist Progress Note ---
Date of Service September 28, 2020 Assessment & Plan (1) Sepsis: Patient is a 65 year old male with PMHx Metastatic Colorectal Cancer, HTN, HLD, DM2, HERNAN who presented after having nausea and chills while receiving his chemotherapy. Sepsis in Immunocompromised patient -Patient initially with hypothermia, tachycardia, tachypnea, WBC 1.78k/uL, Lactate 6.8 -ANC 1061 cells/uL Mild Neutropenia -While possible that patient's symptoms were secondary to chemotherapy, with elevated lactate and other signs of sepsis will cover empirically with vancomycin and cefepime - Blood cultures drawn -No obvious source of infection but patient is immunocompromised and has a histo ry of port infection, if cultures come back positive will consult ID for guidance on port removal if needed -Continuing LR 100ml/hr -Hold home amlodipine Drug Rash Appears to have a new mobilliform rash Most likely culprit is penicillin allergy via zosyn or his cefepime. Will add both of these to drug reaction history for him but he has not had any true anaphylaxis, recommend outpatient follow up for resolution ANA with Hype -Creatinine elevated 1.98 on admission, base ~1 - this morning creatinine up to 2 and potassium also elevated to 6. - Creatinine improved to 1.84 and potassium returned to normal range a few hours later -Suspect ANA pre renal secondary to hypotension from sepsis, - Will continue LR at 100 mls/hour Metastatic Colon Cancer Patient with large tumor burden stage IV including mets to the lungs Will need to coordinate with cancer center on discharge as to suitability for further treatments and if bacteremic may need to pull port DM2 -Hold home Jardiance and Metformin -SSI HLD -Continue home atorvastatin HERNAN -CPAP qhs Dispo: M/S Telemetry for closer monitoring, need for IV antibiotics. FEN: DM2 diet, LR 100ml/hr DVT: Heparin TID, once renal function improves consider change to Enoxaparin for active cancer pt Code: Conditional - NO INTUBATION, okay for CPR Admission and Anticipated Discharge Date Admission Date: September 26, 2020 Supervising Physician Co-Signing Physician Notes I personally examined the patient and verified all adhikari points of history and exam, discussed case, and agree with decision making with Dr Lowe. Feeling good overall. No chest pain no shortness of breath no new symptoms other than a rash. The rash is a little bit itchy, it is mostly on his legs and a little bit on his belly. Vitals noted, in general he is awake alert oriented x3 pleasant no distress. HEENT normocephalic atraumatic mucous membranes moist. No mouth mucosal lesions. Breathing unlabored no accessory muscle use good effort. Skin shows diffuse morbilliform type rash coalescing into large patches on his anterior thighs and knees as well as a little bit his upper carbajal, and a few smaller areas on his lower abdomen. He has nothing on his palms and soles, nothing on his arms. Nothing on his back. Neuro shows cranial nerves II through XII are grossly intact gross motor and sensory intact. Sepsisneutropenic fever type presentation. Technically he was not quite neutropenic as his ANC was 1.06, but given the context right after chemotherapy and his overall suppressed immune system certainly we are treating as though it is a neutropenic sepsis neutropenic fever type of situation. It may all be from cytotoxic chemotherapy, as he is not showing any focal signs or symptoms of infection, but definitely empiric antibiotics are warranted. He is showing nice improvement, and if negative cultures into tomorrow, probably safe to discharge him to home. Given that we are working towards discharge home but he would need empiric antibioticsgiven his neutropenic immune compromised status probably directed towards MRSA and Pseudomonasgiven his rash, we will go ahead and transition to doxy and Cipro and follow him into tomorrow. As long as he shows ongoing clinical stability and ongoing lab improvement, likely home on this tomorrow Acute renal failure, as well as transient hyperkalemiahe really almost looks like a "soft tumor lysis syndrome" type of a pictureobviously he does not have a liquid tumor nor does he have a situation that really would fit with tumor lysis syndrome, but given his renal failure his constitutional symptoms is hyperkalemialikely in large part secondary to his chemotherapy. This is shown good improvement. Follow-up basic metabolic panel in the morning. Drug rashhard to tell if it was related to cefepime or Zosyn, less likely to Vanco. That said it appears to be more of a drug rash than a true allergic rash. Serial exams and watchful waiting, otherwise as above. Osmar Funez has a new rash this morning. He first noticed it this morning while getting out of bed, Physical Exam Physical Exam: Constitutional: Flushed and fatigued appearing 65 year old man resting comfortably in bed in no apparent distress, easily conversive. Eyes: PERRLA, EOMMI bilaterally ENMT: NAD REspiratory: Regular rate, no increased work of breathing, lung sounds vesicular in all lung mensah Cardiovascular: peripheral pulses intact and equal, no murmurs rubs skips or gallops, regular rate and rhythm, minor lower limb edema, no JVD visible GI: Abdomen Soft/NOn tender SKin: Flushed, somewhat clammy Results & Data Results & Data ([facility]) Vital Signs (Past 12 Hours) Vital Signs Temp Pulse Pulse Resp BP Pulse Ox 09/28/20 15:22 36.7 C 104 H 20 121/70 93 09/28/20 11:01 36.8 C 108 H 20 100/62 90 09/28/20 07:12 36.8 C 99 H 19 133/74 92 09/28/20 07:05 94 H 09/28/20 03:46 79 16 95 (1) Sepsis Sepsis acute organ dysfunction status: unspecified Sepsis type: sepsis due to unspecified organism Qualified Code(s): A41.9 - Sepsis, unspecified organism
--- NOTE | 2020-09-28 17:36 | Billing Data ---
Date of Service September 28, 2020 Coding Level of Care Code 43311 Subseq Hosp Care Lvl 3
[2020-09-28] MEDS ORDERED: diphenhydrAMINE Capsule 25 MG CAP PO PRN ×2 (19:42→22:35)
[2020-09-28] MEDS ORDERED: diphenhydrAMINE Capsule 25 MG CAP PO ONE (22:35)
[2020-09-29] MEDS: LACTATED RINGER'S 1,000 ML IV SCH ×2 (03:27→11:38)
[2020-09-29] MEDS: HEPARIN SOD 5,000 UNIT/0.5 ML VIAL SQ SCH ×2 (06:24→13:51)
[2020-09-29 07:34] LABS: Hematocrit (blood only) 33.4 % (42-52); Mean Corpuscular Hemoglobin 32.4 pg (25-34); Mean Corpuscular Hgb Conc 32.9 g/dL (32-36); Mean Corpuscular Volume 98.2 fL (80-100); RDW Standard Deviation 57.8 fL (36.4-46.3); White Blood Count 3.79 K/uL (4.8-10.8)
[2020-09-29] MEDS: DOXYCYCLINE HYCLATE 100 MG CAP PO SCH (07:44)
[2020-09-29] MEDS: CIPROFLOXACIN 250 MG TAB PO SCH (07:44)
[2020-09-29] MEDS: ATORVASTATIN 10 MG TAB PO SCH (07:44)
[2020-09-29] MEDS: INSULIN ASPART 100 UNITS/ML 3 ML PEN SC SCH ×2 (07:47→11:51)
[2020-09-29 08:03] LABS: BUN Creatinine Ratio 17.4 (10-20); Calcium 8.7 mg/dl (8.5-10.1); Creatinine Clr Calc Pharmacy 82.2 ml/min; Est GFR (African American) 90.2; Est GFR (Non-African American) 77.9; Potassium 4.3 mmol/L (3.5-5.1)
[2020-09-29 08:45] LABS: Mean Platelet Volume 10.9 fL (7.4-10.4); Platelet Count 37 K/uL (130-400)
[2020-09-29 11:28] LABS: ALC (manual) 2.69 K/uL (1.2-3.4); ANC (manual) 0.79 K/uL (1.4-6.5); Eosinophils # (manual) 0.21 K/uL (0-0.5); Eosinophils % (manual) 5.5 %; Lymphocytes # (manual) 1.93 K/uL (1.2-3.4); Lymphocytes % (manual) 50.9 %; Monocytes # (manual) 0.07 K/uL (0.11-0.59); Monocytes % (manual) 1.8 %; Neutrophils # (manual) 0.79 K/uL (1.4-6.5); Neutrophils % (manual) 20.9 %; Promyelocytes # (manual) 0.03 K/uL (0-0); Promyelocytes % (manual) 0.9 %; Reactive Lymphocytes # (manual) 0.76 K/uL
--- NOTE | 2020-09-29 13:00 | Discharge Summary ---
Date of Service September 29, 2020 Admission HPI Per Admitting Provider Patient is a 65 year old male with PMHx Metastatic Colorectal Cancer, HTN, HLD, DM2, HERNAN who presented after having nausea and chills while receiving his chemotherapy. Patient notes that he has been on his current regiment of chemotherapy since 09/12/20 and that he had gone to his oncologists office today for his chemo infusion bag. He notes he was sent home with the infusion (typically lasting 36 hours), but shortly after felt sweaty and had chills. He notes that his temperature taken at that time was 94F. He called his oncologist Dr. Zabala's office and was instructed to stop his infusion and to present to the ED for evaluation. He notes that after stopping the infusion his symptoms significantly improved. He states that he has had similar issues in the past with chemotherapy "a few years ago." Currently he denies any chest pain, shortness of breath, worsening cough (notes a chronic ongoing since prior to starting chemotherapy), abdominal pain, diarrhea, dysuria, joint pain. Med Hx - Metastatic Colorectal Cx, HTN, HLD, DM2, HERNAN Surg Hx - Partial colectomy 1994, Soc Hx - No tobacco or illicit drug use. 1-2 beers/month Fam Hx - Father passed from [place] at 58, Mother passed from CHF exacerbation 70's Admission Exam Per Admitting Provider Constitutional: well developed, well nourished and cooperative; no acute distress Eyes: PERRL, conjunctivae normal, anicteric sclerae ENMT: external ear and nose normal, oropharynx normal Mouth: + poor dentition Respiratory: normal respiratory effort, lungs clear to auscultation Cardiovascular: Rate/Rhythm: + tachycardic Heart Sounds: no murmur Vessels: no JVD Extremities: no calf tenderness and no edema Chest (Breasts): Chest: + vascular access device or port (Non-erythematous, no crepitice, non-tender on palpation of surrounding area) Gastrointestinal (Abdomen): Inspection/Auscultation: abdomen normal to inspection and normal bowel sounds; abdomen not distended Percussion/Palpation: abdomen soft; abdomen nontender, no guarding and abdomen not rigid Musculoskeletal: no cyanosis or clubbing, extremities motor strength 5/5 Skin: no rashes, warm and dry Neurologic: PERRL, EOMI, accommodation nl, no face palsy, no dysarthria Psychiatric: A+Ox3, euthymic affect Principal Diagnosis Sepsis presentation - ruled out. symptoms secondary to recent chemotherapy treatment Discharge Exam Constitutional well developed, well nourished and cooperative; no acute distress Eyes PERRL, conjunctivae normal, anicteric sclerae ENMT external ear and nose normal, oropharynx normal Mouth: + poor dentition Respiratory normal respiratory effort, lungs clear to auscultation Cardiovascular Rate/Rhythm: + tachycardic Heart Sounds: no murmur Vessels: no JVD Extremities: no calf tenderness and no edema Chest (Breasts) Chest: + vascular access device or port (Non-erythematous, no crepitice, non- tender on palpation of surrounding area) Gastrointestinal (Abdomen) Inspection/Auscultation: abdomen normal to inspection and normal bowel sounds; abdomen not distended Percussion/Palpation: abdomen soft; abdomen nontender, no guarding and abdomen not rigid Musculoskeletal no cyanosis or clubbing, extremities motor strength 5/5 Skin Flat pink spots with morbilliform appearance on anterior thighs b/l and partially on lower abdomen. Satellite sites also noted on medial R arm and L arm. Neurologic PERRL, EOMI, accommodation nl, no face palsy, no dysarthria Psychiatric A+Ox3, euthymic affect Discharge Data Allergies Allergy/AdvReac Type Severity Reaction Status Date / Time cefepime Allergy drug rash Verified 09/29/20 13:40 piperacillin [From Zosyn] Allergy drug rash Verified 09/29/20 13:40 tazobactam [From Zosyn] Allergy drug rash Verified 09/29/20 13:40 Consultations 09/26/20 20:47 ED Decision to Admit Stat Hospital Course (1) Sepsis: Patient is a 65 year old male with PMHx Metastatic Colorectal Cancer, HTN, HLD, DM2, HERNAN who presented after having nausea and chills while receiving his chemotherapy. Nausea/chills/hypothyermia in Immunocompromised patient Sepsis ruled out -Patient initially with hypothermia, tachycardia, tachypnea, WBC 1.78k/uL, Lactate 6.8 -ANC 1061 cells/uL Mild Neutropenia -Patient started empirically on Vancomycin and Cefepime, Cefepime later transitioned to Zosyn. Vanco and zosyn DC'd after rash. -Patient also developed a likely drug reaction rash, ?Cefepime vs Zosyn, and was transitioned to PO Ciprofloxacin and Doxycycline -Blood cultures drawn, no growth to date -No obvious source of infection -Fluid resuscitated appropriately on admission -As no obvious source of infections were noted and blood cultures drawn were negative, patient discharged without continued antibiotic therapy. -Believe that patients symptoms were secondary to recent chemotherapy treatment in addition to dehydration. Drug Reaction Rash -Likely secondary to Cefepime vs. Zosyn -Benadryl PRN for itching -Improved on day of discharge ANA -Creatinine elevated 1.98 on admission, base ~1 -Improved with fluid resuscitation Metastatic Colon Cancer -Patient with large tumor burden stage IV including mets to the lungs -Follow up with [facility] for determination of resuming treatments. DM2 -Held home Jardiance and Metformin while inpatient. resumed on discharge -SSI HTN -Amlodipine held on admission due to hypotension - resumed on discharge. HLD -Continued home atorvastatin HERNAN -CPAP qhs Total Time Total Time Spent Total Time Spent (In Minutes): see attending attestation Discharge Plan Discharge Items Patient Disposition: Home - Self-Care Reason For Visit: SEPSIS, COLON CX ON CHEMO, NEUTROPENIC Discharge Diagnosis: Sepsis Activity: Resume your previous activity Non-emergency contact: Primary Care Provider and Oncologist Call non-emergency contact if: you have any medication questions, your symptoms worsen and your temperature is above 101 Follow-up/Referrals: Ryan Zabala DO [Physician] - 10/01/20 2:10 pm Geronimo Valdes [Primary Care Provider] - 10/07/20 9:40 am Diet: Regular Addtl Attending Provider Instructions: Mr. Smart, It was our pleasure caring for you from 09/26 - 09/29/20. Please see below for a summary of your care and future instructions. Sepsis in Immunocompromised patient on presentation, without source, likely secondary to chemotherapy -On your presentation, you were hypothermic (low temperature), had a rapid heart beat, were breathing rapidly, and had an elevated Lactic Acid level of 6.8 which concerned us for sepsis -You had noted that you had chemotherapy that day and you had stopped the infusion. -While chemotherapy may have caused your symptoms, we were concerned there was an underlying infection due to your already compromised immune system. -You were started on IV antibiotics and blood cultures were drawn. -You were also given IV fluids. -Your blood cultures have had no growth in 48 hours which makes us feel fairly certain there is no infection in your blood. -We will discontinue your antibiotics at this time. -Please follow up with your PCP in the next 2-3 days Drug Reaction Rash -In regards to the rash on your lower extremities and abdomen, we suspect it is due to a drug reaction from either the Zosyn or Cefepime you were started on -The rash has improved since discontinuation of those medications -Please continue to use OTC Benadryl as needed for itching. Metastatic Colon Cancer -Please follow up with your Oncologist Dr. Zabala in regards to when to resume chemotherapy treatment Please continue to take your remaining medications as prescribed. Please follow up with your PCP in the next 2-3 days. Pending Studies at Discharge: No Stand-Alone Forms: My [facility] [employer], Smoking Cessation Medications and DC Order Prescriptions: Continued atorvastatin 10 mg tablet 10 mg PO DAILY RF: 0 amlodipine 10 mg tablet 10 mg PO DAILY RF: 0 metformin 1,000 mg tablet 1,000 mg PO BID RF: 0 albuterol sulfate [Ventolin HFA] 90 mcg/actuation HFA aerosol inhaler 2 - 3 puff INHALATION .Q2-3HRS PRN (Reason: Shortness Of Breath Or Wheezing) RF: 0 Jardiance 10 mg tablet 10 mg PO DAILY RF: 0 acetaminophen [Tylenol Extra Strength] 500 mg Tablet 1,000 mg PO Q6H PRN (Reason: Pain) RF: 0 Discharge Orders: Discharge Order (Routine); Ordered 09/29/20 Ordered By: Osei Torres/Other Patient Handouts: High Blood Sugar (Hyperglycemia), Managing Type 2 Diabetes, Managing Diabetes: The A1C Test Admission Data Admit Date/Time: 09/26/20 22:29 Attending Provider: Sugey Mojica Admit Provider: Osei Garcia Primary Care Provider: Geronimo Valdes Other Providers: Sherwin Jefferson ; Jacques Dejesus Other Interventions: Discharge Summary Assessment (RN) Last Done: 09/29/20 13:29 Supervising Physician Co-Signing Physician Notes Resident Physician Supervision Note: I independently interviewed and examined the patient and verified the adhikari history and physical, reviewed labs and image studies, discussed the case with the resident Dr. Garcia and agree with the findings and care plan. Resident Activity Tracking Resident Involvement: Resident Care Provided Care Provided: Adult [facility]
[2020-09-29] MEDS ORDERED: HEPARIN 100 UNIT/ML 5ML FLUSH ONE (13:21)
--- NOTE | 2020-10-17 08:41 | Coding Query ---
To promote full compliance with coding requirements relating to patient care, provider participation is requested in all cases of gasoline engine assembler uncertainty. Please assist us with the question(s) below: Coding Question(s): Per Discharge Summary, "Sepsis Ruled Out" but further down the Discharge Summary, "Sepsis in Immunocompromised patient..." is documented. This is conflicting documentation. Please clarify below: (x ) Sepsis ( ) Sepsis Ruled Out ( ) Other Please Explain: Thank You, Otis WELLS
== END 2020-09-29 14:15 | disposition home or self-care (01) | DRG 872 ==
LOC: ED 16:46 → 2W 22:29 → SUATTDRO 22:29 → 2W 23:03

== ENCOUNTER 2020-10-10 16:42 | Inpatient (IN) ==
--- NOTE | 2020-10-10 17:04 | Emergency Department Note ---
History of Present Illness General Chief complaint: Hypotension Stated complaint: ALLERGIC RX Time Seen by Provider: 10/10/20 16:46 Source: patient and RN notes reviewed History of Present Illness Provider complaint: Hypotension Onset (ago): hour(s) Location: head Severity: moderate Pain Consistency: + constant Quality: + other (Blood pressure 99/60) Exacerbated By: + medication (Chemotherapy) Associated symptoms: + fever/chills (Chills no fever) and + shortness of breath (Chronic and unchanged); no chest pain, no cough, no diaphoresis, no headaches, no nausea/vomiting and no syncope This is a 65-year-old male with a history of colorectal cancer with metastasis to his lung presenting with a possible reaction and hypotension due to chemotherapy. He started chemotherapy today at 1230. He was pretreated with Solu-Medrol and Benadryl because he had a reaction 2 weeks ago to the same medication causing him to be hospitalized. He states that during the infusion he started to feel like he had chills and shakes. He felt a little lightheaded. His blood pressure was noted to be 99/60 and his heart rate went to 120. He w as given the entire infusion and watched for 4 hours and then sent here for further evaluation. He states currently that he does not really have any symptoms. He has shortness of breath which is chronic for him and unchanged. He does not feel lightheaded. His shakes have resolved. He stated 2 weeks ago when he was admitted he had shakes, lightheadedness and a temperature of 94 so he was admitted to the hospital. He did develop a rash but he thinks that was to the antibiotics he was given during his hospitalization and not due to the reaction from chemotherapy. He denies having any swelling to his tongue or throat or any rash today. He states he was just sent here as a precaution and he feels well at this time. He denies any chest pain, leg swelling or pain. Home Medications Medication Instructions Recorded Confirmed Type acetaminophen [Tylenol Extra 1,000 mg PO Q6H PRN 09/26/20 10/10/20 History Strength] albuterol sulfate [Ventolin HFA] 2 - 3 puff INHALATION .Q2-3HRS PRN 09/26/20 10/10/20 History amlodipine 10 mg PO DAILY 09/26/20 10/10/20 History atorvastatin 10 mg PO DAILY 09/26/20 10/10/20 History metformin 1,000 mg PO BID 09/26/20 10/10/20 History Allergies Allergy/AdvReac Type Severity Reaction Status Date / Time cefepime Allergy Unknown Rash Verified 10/10/20 17:54 piperacillin [From Zosyn] Allergy Unknown Rash Verified 10/10/20 17:54 tazobactam [From Zosyn] Allergy Unknown Rash Verified 10/10/20 17:54 Past Med/Surg History Medical History Colon carcinoma metastatic to multiple sites Diabetes Dyslipidemia Social History Smoking Status: Never smoker Second Hand Exposure: Yes; Hx Alcohol Use: No Hx Substance Use: No Preferred Language: Urdu Communication Ability: Effective [employer] Required: No Beliefs That Will Affect Care: None Current Living Situation: Alone Feels Safe at Home: Yes Assistive Devices: Glasses and Oxygen - Continuous Review of Systems See HPI for pertinent positives & negatives. and A total of 10 systems reviewed and were otherwise negative Physical Exam Vital Signs Vital Signs - 24 hr 10/10/20 17:00 10/10/20 17:01 10/10/20 17:03 Temperature 37.1 C Temperature Source Oral Pulse Rate 117 H 116 H Pulse Rate [Apical] 120 H Pulse Rate from SpO2 Sensor 117 H 116 H Pulse Rhythm Pulse Rhythm [Apical] Regular Pulse Strength Pulse Strength [Apical] Normal Respiratory Rate 30 H 30 H 32 H Respiratory Effort / Characteristics Non-Labored Spontaneous Respiratory Depth Normal Respiratory Pattern Regular Blood Pressure 107/48 L Blood Pressure [Left Arm] 107/48 L Blood Pressure Mean 67 Blood Pressure Mean [Left Arm] 67 Blood Pressure Position [Left Arm] Semi-fowlers Pulse Oximetry 86 L Oxygen Delivery Method Room Air Oxygen Flow Rate Sepsis Recent Fever Within 48 Hours Sepsis New/Unexplained Change in Mental Status Sepsis Action Taken by Nursing Oxygen Flow Rate - Titration Pulse Oximetry Post Tiitration 10/10/20 17:06 10/10/20 17:30 10/10/20 17:31 Temperature Temperature Source Pulse Rate 109 H 109 H Pulse Rate [Apical] Pulse Rate from SpO2 Sensor 109 H 109 H Pulse Rhythm Pulse Rhythm [Apical] Pulse Strength Pulse Strength [Apical] Respiratory Rate 27 H 29 H Respiratory Effort / Characteristics Respiratory Depth Respiratory Pattern Blood Pressure 96/45 L Blood Pressure [Left Arm] Blood Pressure Mean 62 Blood Pressure Mean [Left Arm] Blood Pressure Position [Left Arm] Pulse Oximetry 86 L 90 90 Oxygen Delivery Method Nasal Cannula Oxygen Flow Rate 0 Sepsis Recent Fever Within 48 Hours Sepsis New/Unexplained Change in Mental Status Sepsis Action Taken by Nursing Oxygen Flow Rate - Titration 3 Pulse Oximetry Post Tiitration 93 10/10/20 17:37 10/10/20 18:00 10/10/20 18:01 Temperature 37.1 C Temperature Source Oral Pulse Rate 120 H 107 H 111 H Pulse Rate [Apical] Pulse Rate from SpO2 Sensor 107 H 108 H Pulse Rhythm Regular Pulse Rhythm [Apical] Pulse Strength Normal Pulse Strength [Apical] Respiratory Rate 18 32 H 21 Respiratory Effort / Characteristics Non-Labored Spontaneous Respiratory Depth Normal Respiratory Pattern Blood Pressure 107/48 L 92/49 L Blood Pressure [Left Arm] Blood Pressure Mean 67 63 Blood Pressure Mean [Left Arm] Blood Pressure Position [Left Arm] Pulse Oximetry 86 L Oxygen Delivery Method Room Air Oxygen Flow Rate Sepsis Recent Fever Within 48 Hours No Sepsis New/Unexplained Change in Mental Status N/A Sepsis Action Taken by Nursing No Action Required Oxygen Flow Rate - Titration Pulse Oximetry Post Tiitration 10/10/20 18:30 Temperature Temperature Source Pulse Rate 105 H Pulse Rate [Apical] Pulse Rate from SpO2 Sensor 106 H Pulse Rhythm Pulse Rhythm [Apical] Pulse Strength Pulse Strength [Apical] Respiratory Rate 17 Respiratory Effort / Characteristics Respiratory Depth Respiratory Pattern Blood Pressure 105/66 Blood Pressure [Left Arm] Blood Pressure Mean 79 Blood Pressure Mean [Left Arm] Blood Pressure Position [Left Arm] Pulse Oximetry 90 Oxygen Delivery Method Oxygen Flow Rate Sepsis Recent Fever Within 48 Hours Sepsis New/Unexplained Change in Mental Status Sepsis Action Taken by Nursing Oxygen Flow Rate - Titration Pulse Oximetry Post Tiitration Constitutional: Vital signs reviewed. Eyes: Pupils are equal round reactive to light. Conjunctiva are noninjected. ENT: Pharynx is clear without erythema or exudate. Mucous membranes are moist. No glottic swelling or swelling to the uvula. Neck supple without meningeal signs. Respiratory: Clear to auscultation bilaterally. Breath sounds are equal bilaterally. No wheezing or stridor. Cardiovascular: Regular rate and rhythm. No rubs or gallops. GI: Soft, nondistended and nontender. Bowel sounds are present. Musculoskeletal: No peripheral edema. No lower extremity tenderness. Integumentary: No cyanosis. or jaundice. Neurological: The patient is awake and alert. No focal deficits. Psychiatric: Normal affect. Not anxious appearing. Course Administered Medications Heparin Sodium/Dextrose (Heparin Sodium/Dextrose) 25,000 units in 500 mls @ 30 mls/hr IV .[id number] [facility]; Protocol Stop: 11/09/20 18:29 Last Admin: 10/10/20 19:02 Dose: 1,500 units/hr, 30 mls/hr Documented by: [id number] Cosigned by: [id number] Discontinued Medications Heparin Sodium (Porcine) (Heparin Sod (Porcine) 1000 Unit/Ml 10 Ml Vial) Confirm Administered Dose 10,000 units .ROUTE .STK-MED ONE Stop: 10/10/20 19:02 Last Admin: 10/10/20 19:09 Dose: 7,000 units Documented by: [id number] Cosigned by: [id number] Heparin Sodium/Dextrose (Heparin Iv Standard With Bolus) 1 ea IV NOW STA; Protocol Stop: 10/10/20 18:31 Last Admin: 10/10/20 19:02 Dose: 1 ea Documented by: [id number] Sodium Chloride (Nss 1000ml) 500 mls @ 999 mls/hr IV .Q31M ONE Stop: 10/10/20 18:07 Last Infusion: 10/10/20 19:21 Dose: 0 mls/hr Documented by: [id number] Admin: 10/10/20 17:54 Dose: 999 mls/hr Documented by: [id number] Levofloxacin/Dextrose (Levaquin/D5w) 750 mg in 150 mls @ 100 mls/hr IV NOW STA Stop: 10/10/20 19:52 Last Admin: 10/10/20 19:01 Dose: 100 mls/hr Documented by: [id number] Sodium Chloride (Nss 1000ml) 1,000 mls @ 999 mls/hr IV .Q1H1M ONE Stop: 10/10/20 19:42 Last Admin: 10/10/20 19:21 Dose: Not Given Documented by: [id number] Sodium Chloride (Nss 1000ml) 500 mls @ 999 mls/hr IV .Q31M ONE Stop: 10/10/20 19:28 Last Admin: 10/10/20 19:09 Dose: 999 mls/hr Documented by: [id number] Critical Care Time Critical Care Time: Yes Total Critical Care Time: 45 I have personally spent approximately 45 minutes of critical care time in the direct management of this patient. This includes bedside care, interpretation of diagnostic studies, and testing, discussion with consultants, patient, and family members, and other required patient management activities. These minutes are in excess of all separately billable procedures. Medical Decision Making Differential Diagnosis Pneumonia, sepsis, allergic reaction, anaphylaxis, pulmonary embolism Medical Records Attestation: I reviewed the patient's medical records. I did perform a limited focused review of portions of the patient's old chart on the electronic medical record. The patient was admitted to the [facility] this month due to hypothermia, chills, mild neutropenia and ANA. No source of infection was found. He did develop a drug rash to either vancomycin or cefepime. He was eventually discharged in good condition. Home Medications Current Medication List: was personally reviewed by me Laboratory Data Attestation: I reviewed the patient's lab results. Result diagrams: 10/10/20 17:31 10/10/20 17:31 Lab Results 10/10/20 10/10/20 10/10/20 Range/Units 17:31 17:31 17:31 WBC 11.74 H (4.8-10.8) K/uL RBC 4.01 L (4.7-6.1) M/uL Hgb 13.0 L (14.0-18.0) g/dL Hct 40.2 L (42-52) % MCV 100.2 H (80-100) fL MCH 32.4 (25-34) pg MCHC 32.3 (32-36) g/dL RDW Std Deviation 61.6 H (36.4-46.3) fL RDW Coeff of Jeff 16.8 H (11.5-14.5) % Plt Count 96 L (130-400) K/uL MPV 10.5 H (7.4-10.4) fL Immature Gran % (Auto) 1.0 % Neut % (Auto) 74.4 % Lymph % (Auto) 17.6 % Chaves % (Auto) 6.9 % Eos % (Auto) 0.0 % Baso % (Auto) 0.1 % Neut # (Auto) 8.73 H (1.4-6.5) K/uL Lymph # (Auto) 2.07 (1.2-3.4) K/uL Chaves # (Auto) 0.81 H (0.11-0.59) K/uL Eos # (Auto) 0.00 (0-0.5) K/uL Baso # (Auto) 0.01 (0-0.2) K/uL Immature Gran # (Auto) 0.12 H (0.00-0.02) K/uL Hyposegmented Neuts 1+ PT 11.6 (9.0-12.0) Seconds INR 1.2 H (0.9-1.1) APTT 22.5 (21.0-31.0) Seconds PTT Ratio 0.9 Sodium 134 L (136-145) mmol/L Potassium 4.8 (3.5-5.1) mmol/L Chloride 105 (98-107) mmol/L Carbon Dioxide 16 L (21-32) mmol/L Anion Gap 13.0 H (3-11) BUN 23 H (7-18) mg/dl Creatinine 2.18 H (0.6-1.4) mg/dl Est Cr Clr Drug Dosing 41.3 ml/min Est GFR ( Amer) 36.0 Est GFR (Non-Af Amer) 31.1 BUN/Creatinine Ratio 10.4 (10-20) Glucose 241 H (70-99) mg/dl Lactate (0.4-2.0) mmol/L Calcium 8.8 (8.5-10.1) mg/dl Total Bilirubin 0.6 (0.2-1) mg/dl AST 54 H (15-37) U/L ALT 36 (12-78) U/L Alkaline Phosphatase 150 H (45-117) U/L Troponin I < 0.015 (0-0.045) ng/ml Total Protein 8.2 (6.4-8.2) gm/dl Albumin 2.6 L (3.4-5.0) gm/dl Globulin 5.6 H (2.5-4.0) gm/dl Albumin/Globulin Ratio 0.5 L (0.9-2) Procalcitonin (0-0.5) ng/ml COVID-19 Eval Order SARS-CoV-2, RNA, NAAT (NEGATIVE) 10/10/20 10/10/20 10/10/20 Range/Units 17:31 17:50 17:50 WBC (4.8-10.8) K/uL RBC (4.7-6.1) M/uL Hgb (14.0-18.0) g/dL Hct (42-52) % MCV (80-100) fL MCH (25-34) pg MCHC (32-36) g/dL RDW Std Deviation (36.4-46.3) fL RDW Coeff of Jeff (11.5-14.5) % Plt Count (130-400) K/uL MPV (7.4-10.4) fL Immature Gran % (Auto) % Neut % (Auto) % Lymph % (Auto) % Chaves % (Auto) % Eos % (Auto) % Baso % (Auto) % Neut # (Auto) (1.4-6.5) K/uL Lymph # (Auto) (1.2-3.4) K/uL Chaves # (Auto) (0.11-0.59) K/uL Eos # (Auto) (0-0.5) K/uL Baso # (Auto) (0-0.2) K/uL Immature Gran # (Auto) (0.00-0.02) K/uL Hyposegmented Neuts PT (9.0-12.0) Seconds INR (0.9-1.1) APTT (21.0-31.0) Seconds PTT Ratio Sodium (136-145) mmol/L Potassium (3.5-5.1) mmol/L Chloride (98-107) mmol/L Carbon Dioxide (21-32) mmol/L Anion Gap (3-11) BUN (7-18) mg/dl Creatinine (0.6-1.4) mg/dl Est Cr Clr Drug Dosing ml/min Est GFR ( Amer) Est GFR (Non-Af Amer) BUN/Creatinine Ratio (10-20) Glucose (70-99) mg/dl Lactate (0.4-2.0) mmol/L Calcium (8.5-10.1) mg/dl Total Bilirubin (0.2-1) mg/dl AST (15-37) U/L ALT (12-78) U/L Alkaline Phosphatase (45-117) U/L Troponin I (0-0.045) ng/ml Total Protein (6.4-8.2) gm/dl Albumin (3.4-5.0) gm/dl Globulin (2.5-4.0) gm/dl Albumin/Globulin Ratio (0.9-2) Procalcitonin 50.81 H (0-0.5) ng/ml COVID-19 Eval [facility] SARS-CoV-2, RNA, NAAT NEGATIVE (NEGATIVE) 10/10/20 Range/Units 18:46 WBC (4.8-10.8) K/uL RBC (4.7-6.1) M/uL Hgb (14.0-18.0) g/dL Hct (42-52) % MCV (80-100) fL MCH (25-34) pg MCHC (32-36) g/dL RDW Std Deviation (36.4-46.3) fL RDW Coeff of Jeff (11.5-14.5) % Plt Count (130-400) K/uL MPV (7.4-10.4) fL Immature Gran % (Auto) % Neut % (Auto) % Lymph % (Auto) % Chaves % (Auto) % Eos % (Auto) % Baso % (Auto) % Neut # (Auto) (1.4-6.5) K/uL Lymph # (Auto) (1.2-3.4) K/uL Chaves # (Auto) (0.11-0.59) K/uL Eos # (Auto) (0-0.5) K/uL Baso # (Auto) (0-0.2) K/uL Immature Gran # (Auto) (0.00-0.02) K/uL Hyposegmented Neuts PT (9.0-12.0) Seconds INR (0.9-1.1) APTT (21.0-31.0) Seconds PTT Ratio Sodium (136-145) mmol/L Potassium (3.5-5.1) mmol/L Chloride (98-107) mmol/L Carbon Dioxide (21-32) mmol/L Anion Gap (3-11) BUN (7-18) mg/dl Creatinine (0.6-1.4) mg/dl Est Cr Clr Drug Dosing ml/min Est GFR ( Amer) Est GFR (Non-Af Amer) BUN/Creatinine Ratio (10-20) Glucose (70-99) mg/dl Lactate 5.4 H* (0.4-2.0) mmol/L Calcium (8.5-10.1) mg/dl Total Bilirubin (0.2-1) mg/dl AST (15-37) U/L ALT (12-78) U/L Alkaline Phosphatase (45-117) U/L Troponin I (0-0.045) ng/ml Total Protein (6.4-8.2) gm/dl Albumin (3.4-5.0) gm/dl Globulin (2.5-4.0) gm/dl Albumin/Globulin Ratio (0.9-2) Procalcitonin (0-0.5) ng/ml COVID-19 Eval Order SARS-CoV-2, RNA, NAAT (NEGATIVE) Imaging Data Radiologist's Impression: XR chest 1V portable HISTORY: 65 years-old Male chills eval for pna acute shortness breath and chills with possible pneumonia COMPARISON: Chest radiograph 09/27/2020, chest CT 08/18/2020. TECHNIQUE: Portable AP view of the chest FINDINGS: Cardiomediastinal and hilar silhouettes are unchanged. Stable positioning of the right IJ Heheex-t-Hhbq catheter with distal tip terminating in the expected location of the mid SVC. Mild right hemidiaphragmatic elevation. Interstitial coarsening with ill-defined bilateral airspace opacities/nodules redemonstrated. Airspace opacities within the lung bases have slightly progressed. No pne umothorax or large pleural effusion. Degenerative changes of the shoulders and spine. IMPRESSION: 1. Interstitial coarsening with basilar predominant bilateral airspace opacities redemonstrated. Findings are suggestive of pulmonary edema versus multifocal pneumonia. 2. Bilateral pulmonary nodules are better characterized on comparison chest CT. ACT 112: Negative or not required by law. The above report was generated using voice recognition software. It may contain grammatical, syntax or spelling errors. Electronically signed by: Will Elizondo M.D. 10/10/2020 5:50 PM Dictated: 10/10/201746 Transcribed: 10/10/201746 BILATERAL LOWER EXTREMITY VENOUS DOPPLER HISTORY: Acute pain and swelling of the lower legs eval for PE COMPARISON STUDY: Duplex venous Doppler study 09/29/2018. FINDINGS: There is normal compressibility, flow, and augmentation within the bilateral lower extremity deep venous systems. IMPRESSION: No DVT within the right or left lower extremity. ACT 112: Negative or not required by law. Electronically signed by: Will Elizondo M.D. 10/10/2020 8:59 PM Dictated: 10/10/202057 Transcribed: 10/10/202057 ECG Data Attestation: I personally reviewed and interpreted this ECG as follows: Indication: + tachycardia and + other (Hypoxia) Rate (beats per minute): 113 Rhythm: + sinus tachycardia ECG Stow: + Normal ECG ST segments: no ST elevation ECG Findings: no PVCs MDM Narrative I did evaluate the patient as noted above. He is presenting after becoming tachycardic and hypotensive while receiving chemotherapy to which he had a reaction in the past. Currently he has minimal symptoms. IV access was established. I did place an order for continuous cardiac monitoring. The monitor showed sinus tachycardia at a rate of 110 bpm. I did order and personally review the patient's 12-lead EKG as described above. He has sinus tachycardia with a cut out acute ischemia. His pulse ox on room air is 86%. He was placed on 6 L O2 via nasal cannula. His saturation went up to 92%. I did order and personally reviewed the images of the patient's chest x-ray as described above. He has what appears to be pulmonary edema versus multifocal pneumonia. He did have Covid back in July. I did recheck a noted Covid test here which was negative. I did treat him with Levaquin IV after blood cultures were drawn. I did order a urine analysis. I did order and review the patient's blood work as noted in the electronic medical record. His white blood cell count is elevated at 12. Hemoglobin is 13. Platelet count is 96. Creatinine is elevated 2.1 with BUN at 23. CO2 is 16. Lactic acid is 5.4. I originally ordered a CT angiogram of chest to rule out PE but his creatinine is too elevated to obtain this test. I therefore recommended we start him on anticoagulation and admit him for VQ scanning as well as Dopplers of the legs. I did discuss this with the hospitalist who was agreeable with this plan. I did discuss the risks and benefits of blood thinners with the patient. I did start the patient on IV heparin with a standard bolus. He was then started on a continuous drip. I did order a Doppler ultrasound of both legs. I did review the images myself as well as the radiology report as described above. This was negative for DVT. Impression & Plan Hypoxemia, ANA (acute kidney injury), Thrombocytopenia, Multifocal pneumonia Discharge Plan Visit Data Chief Complaint: Hypotension Stated Complaint: ALLERGIC RX ED Provider: Osei York Discharge Problem: Hypoxemia, ANA (acute kidney injury), Thrombocytopenia, Multifocal pneumonia Patient Disposition: Admitted As Inpatient Discharge Instructions Interventions: ED Discharge Assessment Last Done: 10/10/20 20:24
[2020-10-10] MEDS ORDERED: SODIUM CHLORIDE 0.9% 1000ML 500 ML IV ONE ×2 (17:37→18:58)
[2020-10-10 17:41] LABS: Hematocrit (blood only) 40.2 % (42-52); Mean Corpuscular Hemoglobin 32.4 pg (25-34); Mean Corpuscular Hgb Conc 32.3 g/dL (32-36); Mean Corpuscular Volume 100.2 fL (80-100); RDW Coefficient of Variation 16.8 % (11.5-14.5); RDW Standard Deviation 61.6 fL (36.4-46.3); Red Blood Count 4.01 M/uL (4.7-6.1); White Blood Count 11.74 K/uL (4.8-10.8)
[2020-10-10 17:43] LABS: Mean Platelet Volume 10.5 fL (7.4-10.4); Platelet Count 96 K/uL (130-400)
--- NOTE | 2020-10-10 17:52 | XRay Report ---
XR chest 1V portable HISTORY: 65 years-old Male chills eval for pna acute shortness breath and chills with possible pneum onia COMPARISON: Chest radiograph 09/27/2020, chest CT 08/18/2020. TECHNIQUE: Portable AP view of the chest FINDINGS: Cardiomediastinal and hilar silhouettes are unchanged. Stable positioning of the right IJ Infuse-a-Po rt catheter with distal tip terminating in the expected location of the mid SVC. Mild right hemidiaph ragmatic elevation. Interstitial coarsening with ill-defined bilateral airspace opacities/nodules red emonstrated. Airspace opacities within the lung bases have slightly progressed. No pneumothorax or la rge pleural effusion. Degenerative changes of the shoulders and spine. IMPRESSION: 1. Interstitial coarsening with basilar predominant bilateral airspace opacities redemonstrated. Find ings are suggestive of pulmonary edema versus multifocal pneumonia. 2. Bilateral pulmonary nodules are better characterized on comparison chest CT. ACT 112: Negative or not required by law. The above report was generated using voice recognition software. It may contain grammatical, syntax o r spelling errors. Electronically signed by: Will Elizondo M.D. 10/10/2020 5:50 PM
[2020-10-10 18:01] LABS: Alanine Aminotransferase 36 U/L (12-78); Albumin Level 2.6 gm/dl (3.4-5.0); Aspartate Aminotransferase 54 U/L (15-37); BUN Creatinine Ratio 10.4 (10-20); Blood Urea Nitrogen 23 mg/dl (7-18); Calcium 8.8 mg/dl (8.5-10.1); Carbon Dioxide 16 mmol/L (21-32); Chloride 105 mmol/L (98-107); Creatinine Clr Calc Pharmacy 41.3 ml/min; Est GFR (Non-African American) 31.1; Glucose 241 mg/dl (70-99); Potassium 4.8 mmol/L (3.5-5.1); Sodium 134 mmol/L (136-145)
[2020-10-10 18:06] LABS: Albumin Globulin Ratio 0.5 (0.9-2); Alkaline Phosphatase 150 U/L (45-117); Bilirubin,Total 0.6 mg/dl (0.2-1); Globulin 5.6 gm/dl (2.5-4.0); Total Protein 8.2 gm/dl (6.4-8.2); Troponin I < 0.015 ng/ml (0-0.045)
[2020-10-10 18:19] LABS: Basophils # (auto) 0.01 K/uL (0-0.2); Basophils % (auto) 0.1 %; Immature Granulocytes # (auto) 0.12 K/uL (0.00-0.02); Lymphocytes # (auto) 2.07 K/uL (1.2-3.4); Lymphocytes % (auto) 17.6 %; Monocytes # (auto) 0.81 K/uL (0.11-0.59); Monocytes % (auto) 6.9 %; Neutrophils # (auto) 8.73 K/uL (1.4-6.5); Neutrophils % (auto) 74.4 %
[2020-10-10] MEDS ORDERED: levoFLOXacin/D5W 750 MG/150 ML BAG IV STA (18:23)
[2020-10-10 18:34] LABS: INR 1.2 (0.9-1.1); Partial Thromboplastin Ratio 0.9; Partial Thromboplastin Time 22.5 Seconds (21.0-31.0); Prothrombin Time 11.6 Seconds (9.0-12.0)
[2020-10-10] MEDS ORDERED: SODIUM CHLORIDE 0.9% 1000ML 1,000 ML IV ONE (18:42)
--- NOTE | 2020-10-10 18:57 | History & Physical Report ---
Date of Service October 10, 2020 Assessment & Plan (1) Sepsis: 65 yo M with hx metastatic colon cancer, Dm2, HLD,HTN admitted for sepsis likely secondary to CAP. Sepsis in immunocompromised individual - elevated lactate to 5.4, afebrile, wbc 11.74, hypotensive to 92/45 at lowest - elevated monocytes at 0.81 and immature granulocytes at 0.12 - CXR showing Interstitial coarsening with basilar opacities indicative of pulmonary edema vs. multifocal pneumonia - received 1 dose levaquin in ER (drug reaction rash after zosyn + cefepime last admission) - 2L NS fluid resuscitation in ER - procal pending - blood cultures pending - trend CBC Present on Admission?: Yes (2) Hypoxia: - no additional oxygen requirement at home - given sudden onset to 6L, concurrent hypotension, tachycardia in setting of colon cancer, high risk for PE - goal O2>90, titrate NC as required to goal - remote hx of DVT treated a number of years ago - given ANA, unable to perform CTA Chest - empirically treating with heparin drip with bolus - recommend V/Q scan in AM or CTA chest if Cr level improves tomorrow - no hx smoking, lung disease. Mets to lungs visible on CT + CXR Present on Admission?: Yes (3) Elevated lactic acid level: - secondary to poor perfusion due to sepsis - trending - recommend discontinuing metformin at discharge as may be contributing to lactic acidosis Present on Admission?: Yes (4) ANA (acute kidney injury): - no hx CKD - Cr up to 2.18 today, BUN 23 - likely mix of dehydration + poor perfusion from septic hypotension - repeat BMP AM - encourage PO fluid - hold metformin and renally dose all medications Present on Admission?: Yes (5) Colon carcinoma metastatic to multiple sites: receives chemo at [facility]. no notes in record regarding current chemotherapy regimen, patient isn't sure which ones he is on recommend reaching out to CCP in AM regarding which chemo therapy he is on Present on Admission?: Yes (6) Diabetes: on 500 mg metformin BID at home SSI while admitted last A1c 8.3 this month Present on Admission?: Yes (7) Dyslipidemia: continue atorvastatin DVT ppx: heparin drip FEN/GI: diabetic diet, PO fluid intake Code Status: Full Code Dispo:PCU History of Present Illness 65-year-old male with a past medical history colon cancer stage IV undergoing chemotherapeutic treatment, dyslipidemia, diabetes, hypertension who presents to the emergency department from [facility] after getting 4 hours of chemotherapy and becoming hypotensive and tachycardic during that time. Of note he received chemo approximately 2 weeks ago and was admitted after having a similar reaction. At that time he had been hypothermic, tachycardic, tach tachypneic, hypotensive and was admitted for severe sepsis. Today he states that he had some mild chills during chemotherapy with is not unusual for him. He denies any changes in vision, dizziness, headache, chest pain, shortness of breath. He says he has some of the normal chemotherapy associated nausea but no episodes of emesis or diarrhea. He states that he normally has a faint cough which has not changed and is not productive. He denies any numbness or tingling or generalized weakness. ED course:Initial vitals blood pressure 107/48, pulse rate of 120, respiratory rate 30, pulse ox 86 on room air. Afebrile.Due to ANA and creatinine of 2.18 unable to get CTA of chest to assess for pulmonary embolus.A total of 2 L of sodium chloride boluses. Is also initiated on a heparin drip with a bolus to treat presumed pulmonary embolus. Started on Levaquin for concerns of infection. Primary Care Provider: Geronimo Valdes Allergies Allergy/AdvReac Type Severity Reaction Status Date / Time cefepime Allergy Unknown Rash Verified 10/10/20 17:54 piperacillin [From Zosyn] Allergy Unknown Rash Verified 10/10/20 17:54 tazobactam [From Zosyn] Allergy Unknown Rash Verified 10/10/20 17:54 Home Medications Medication Instructions Recorded Confirmed Type acetaminophen [Tylenol Extra 1,000 mg PO Q6H PRN 09/26/20 10/10/20 History Strength] albuterol sulfate [Ventolin HFA] 2 - 3 puff INHALATION .Q2-3HRS PRN 09/26/20 10/10/20 History amlodipine 10 mg PO DAILY 09/26/20 10/10/20 History atorvastatin 10 mg PO DAILY 09/26/20 10/10/20 History metformin 1,000 mg PO BID 09/26/20 10/10/20 History Past Med/Surg History Medical History Colon carcinoma metastatic to multiple sites Diabetes Dyslipidemia Social History Smoking Status: Never smoker Second Hand Exposure: Yes; Hx Alcohol Use: Yes Alcohol type: beer Hx Substance Use: No Preferred Language: Tamazight Communication Ability: Effective Filtration Supervisor Required: No Beliefs That Will Affect Care: None Current Living Situation: Alone Feels Safe at Home: Yes Safety Concerns: Feels Safe At This Time Assistive Devices: Glasses Review of Systems Constitutional: + chills; no fever, no sweats, no fatigue, no weakness and no anorexia Eyes: no diplopia Respiratory: + cough; no chest congestion, no dyspnea, no hemoptysis and no pain on inspiration Cardiovascular: no chest pain, no dyspnea at rest, no orthopnea, no palpitations, no lightheadedness and no edema Gastrointestinal: + nausea; no abdominal pain, no vomiting, no cramping, no change in bowel habits, no constipation, no diarrhea/loose stools and no blood in stools Neurologic: no tingling and no numbness Endocrine: no fatigue Physical Exam Physical Exam: Constitutional: Laying in bed in no acute distress,speaking comfortably Card: RRR, no mrg Pulm: CTA BL, crackles at bases bilaterally, no cough, no rhonchi, breathing comfortably on 6L NC satting 93 Gi: nontender, nondistended, soft, no rebound, no guarding, normal bowel sounds Ext: 2+ peripheral pulses, no edema Neuro: A&Ox3, moving all extremities Results & Data Results & Data ([facility]) Vital Signs (Past 12 Hours) Vital Signs Temp Pulse Pulse Resp BP BP Pulse Ox 10/10/20 18:01 111 H 21 10/10/20 18:00 107 H 32 H 92/49 L 10/10/20 17:37 37.1 C 120 H 18 107/48 L 86 L 10/10/20 17:31 109 H 29 H 90 10/10/20 17:30 109 H 27 H 96/45 L 90 10/10/20 17:06 86 L 10/10/20 17:03 116 H 32 H 10/10/20 17:01 117 H 30 H 107/48 L 10/10/20 17:00 37.1 C 120 H 30 H 107/48 L 86 L Laboratory Results WBC 11.74 K/uL (4.8-10.8) H 10/10/20 17: RBC 4.01 M/uL (4.7-6.1) L 10/10/20 17: Hgb 13.0 g/dL (14.0-18.0) L 10/10/20 17: Hct 40.2 % (42-52) L 10/10/20 17: MCV 100.2 fL (80-100) H 10/10/20 17: MCH 32.4 pg (25-34) 10/10/20 17: MCHC 32.3 g/dL (32-36) 10/10/20 17: RDW Std Deviation 61.6 fL (36.4-46.3) H 10/10/20: RDW Coeff of Jeff 16.8 % (11.5-14.5) H 10/10/20: Plt Count 96 K/uL (130-400) L 10/10/20: MPV 10.5 fL (7.4-10.4) H 10/10/20 17: Immature Gran % (Auto) 1.0 % 10/10/20 17: Neut % (Auto) 74.4 % 10/10/20 17: Lymph % (Auto) 17.6 % 10/10/20 17: [place] % (Auto) 6.9 % 10/10/20 17: Eos % (Auto) 0.0 % 10/10/20 17: Baso % (Auto) 0.1 % 10/10/20: Neut # (Auto) 8.73 K/uL (1.4-6.5) H 10/10/20 17: Lymph # (Auto) 2.07 K/uL (1.2-3.4) 10/10/20 17: [place] # (Auto) 0.81 K/uL (0.11-0.59) H 10/10/20 17: Eos # (Auto) 0.00 K/uL (0-0.5) 10/10/20 17: Baso # (Auto) 0.01 K/uL (0-0.2) 10/10/20 17: Immature Gran # (Auto) 0.12 K/uL (0.00-0.02) H 10/10/20 17:31 Hyposegmented Neuts 1+ 10/10/20 17:31 PT 11.6 Seconds (9.0-12.0) 10/10/20 17:31 INR 1.2 (0.9-1.1) H 10/10/20 17:31 APTT 22.5 Seconds (21.0-31.0) 10/10/20 17:31 PTT Ratio 0.9 10/10/20 17:31 Sodium 134 mmol/L (136-145) L 10/10/20 17:31 Potassium 4.8 mmol/L (3.5-5.1) 10/10/20 17:31 Chloride 105 mmol/L (98-107) 10/10/20 17:31 Carbon Dioxide 16 mmol/L (21-32) L 10/10/20 17:31 Anion Gap 13.0 (3-11) H 10/10/20 17:31 BUN 23 mg/dl (7-18) H 10/10/20 17:31 Creatinine 2.18 mg/dl (0.6-1.4) H 10/10/20 17:31 Est Cr Clr Drug Dosing 41.3 ml/min 10/10/20 17:31 Est GFR ( Amer) 36.0 10/10/20 17:31 Est GFR (Non-Af Amer) 31.1 10/10/20 17:31 BUN/Creatinine Ratio 10.4 (10-20) 10/10/20 17:31 Glucose 241 mg/dl (70-99) H 10/10/20 17:31 Lactate 5.4 mmol/L (0.4-2.0) H* 10/10/20 18:46 Calcium 8.8 mg/dl (8.5-10.1) 10/10/20 17:31 Total Bilirubin 0.6 mg/dl (0.2-1) 10/10/20 17:31 AST 54 U/L (15-37) H 10/10/20 17:31 ALT 36 U/L (12-78) 10/10/20 17:31 Alkaline Phosphatase 150 U/L (45-117) H 10/10/20 17:31 Troponin I < 0.015 ng/ml (0-0.045) 10/10/20 17:31 Total Protein 8.2 gm/dl (6.4-8.2) 10/10/20 17:31 Albumin 2.6 gm/dl (3.4-5.0) L 10/10/20 17:31 Globulin 5.6 gm/dl (2.5-4.0) H 10/10/20 17:31 Albumin/Globulin Ratio 0.5 (0.9-2) L 10/10/20 17:31 COVID-19 Eval Order Covid19 [facility] 10/10/20 17:50 SARS-CoV-2, RNA, NAAT NEGATIVE (NEGATIVE) 10/10/20 17:50 Code Status & VTE Plan VTE Prophylaxis Plan VTE Prophylaxis will be ordered: Yes Supervising Physician Co-Signing Physician Notes I personally saw and examined the patient. I verified all adhikari points and agree with Resident Physician Dr Heydi Auguste with the following exceptions and/or additions: 65-year-old male with similar episode of hypotension and tachycardia following chemotherapy infusion. He reports actually feeling better than when this occurred previously on September 26. On that occasion there was some concern for sepsis and he received empiric antibiotics although blood cultures negative and discharge summary notes sepsis was ruled out and symptoms likely due to chemotherapy. On this occasion the patient was pretreated with diphenhydramine and dexamethasone. He is hypoxic on this occasion but otherwise notes the presentation is similar but less severe. Due to hypoxia with metastatic colon cancer there is some concern for pulmonary embolism on this occasion and he was started on a IV heparin drip by the ER physician. Although this diagnosis seems less likely we unfortunately are unable to get a CT angiogram due to current renal function. Patient was covered with Levaquin for potential infection although this is also felt to be unlikely however coverage with Levaquin while awaiting blood cultures seems reasonable. O/E patient is chronically ill appearing, alert and orientated, in respiratory distress using accessory muscles, chest without wheezing, coarse crackles bibasal. A/P as above Resident Activity Tracking Resident Involvement: Resident Care Provided Care Provided: Adult Hospital Medicine (1) Diabetes Diabetes mellitus type: type 2 (2) Sepsis Sepsis acute organ dysfunction status: unspecified Sepsis type: sepsis due to unspecified organism Qualified Code(s): A41.9 - Sepsis, unspecified organism
[2020-10-10] MEDS ORDERED: HEPARIN SOD (PORCINE) 1000 UNIT/ML 10 ML VIAL ONE (19:01)
[2020-10-10] MEDS: HEPARIN SODIUM/DEXTROSE 25,000 UNITS/500 ML BAG IV SCH (19:02)
[2020-10-10 20:32] LABS: Appearance Urine Clear (Clear); Bacteria Urine Automated Negative (Negative); Bilirubin Urine Negative (Negative); Blood Urine Negative (Negative); Color Urine Dark Yellow; Glucose Urine UA 1+ (Negative); Ketones Urine Negative (Negative); Leukocyte Esterase Urine Trace (Negative); Nitrite Urine Negative (Negative); Protein Urine 1+ (Negative); RBC Urine Automated 0-4 /hpf (0-4); Specific Gravity Urine 1.023 (1.000-1.030); Urobilinogen Urine Negative (Negative)
[2020-10-10 20:32] LABS: Influenza A virus by PCR Negative (Negative); Influenza B virus by PCR Negative (Negative)
--- NOTE | 2020-10-10 21:00 | Ultrasound Report ---
BILATERAL LOWER EXTREMITY VENOUS DOPPLER HISTORY: Acute pain and swelling of the lower legs eval for PE COMPARISON STUDY: Duplex venous Doppler study 09/29/2018. FINDINGS: There is normal compressibility, flow, and augmentation within the bilateral lower extremit y deep venous systems. IMPRESSION: No DVT within the right or left lower extremity. ACT 112: Negative or not required by law. Electronically signed by: Will Elizondo M.D. 10/10/2020 8:59 PM
[2020-10-10] MEDS ORDERED: DEXTROSE 50% 50 ML SYRINGE IV PRN (21:09)
[2020-10-10] MEDS ORDERED: GLUCOSE 10 TABS/TUBE PO PRN (21:09)
[2020-10-10] MEDS ORDERED: ACETAMINOPHEN HOME PACK 500 MG TABLET PO PRN (21:09)
[2020-10-10] MEDS ORDERED: CARBOHYDRATES FOR HYPOGLYCEMIA PO PRN (21:09)
[2020-10-10] MEDS ORDERED: ACETAMINOPHEN 325 MG TAB PO PRN (21:09)
[2020-10-10] MEDS ORDERED: PROCHLORPERAZINE 5 MG in SYRINGE 4 ML IV PRN (21:09)
[2020-10-10] MEDS ORDERED: MAGNESIUM HYDROXIDE SUSP 30 ML UDC PO PRN (21:09)
[2020-10-10] MEDS ORDERED: NITROGLYCERIN SL 0.4 MG/TAB TAB SL PRN (21:09)
[2020-10-10] MEDS ORDERED: GLUCAGON FOR INJ 1 MG VIAL SQ PRN (21:09)
[2020-10-10] MEDS ORDERED: GLUCOSE 40% GEL 15 GM TUBE PO PRN (21:09)
[2020-10-10] MEDS: INSULIN ASPART 100 UNITS/ML 3 ML PEN SC SCH (22:23)
[2020-10-10] MEDS: SODIUM CHLORIDE 0.9% 1000ML 1,000 ML IV SCH (22:23)
[2020-10-11 01:10] LABS: Hematocrit (blood only) 35.2 % (42-52); Hemoglobin 11.4 g/dL (14.0-18.0); Mean Corpuscular Hemoglobin 32.8 pg (25-34); Mean Corpuscular Hgb Conc 32.4 g/dL (32-36); Mean Corpuscular Volume 101.1 fL (80-100); RDW Coefficient of Variation 17.2 % (11.5-14.5); RDW Standard Deviation 63.7 fL (36.4-46.3); Red Blood Count 3.48 M/uL (4.7-6.1); White Blood Count 14.61 K/uL (4.8-10.8)
[2020-10-11 01:31] LABS: Mean Platelet Volume 10.8 fL (7.4-10.4); Platelet Count 92 K/uL (130-400)
[2020-10-11 01:33] LABS: Partial Thromboplastin Ratio 2.7
[2020-10-11 01:45] LABS: Partial Thromboplastin Time 69.7 Seconds (21.0-31.0)
[2020-10-11 01:52] LABS: ALC (manual) 3.59 K/uL (1.2-3.4); ANC (manual) 10.24 K/uL (1.4-6.5); Lymphocytes # (manual) 3.59 K/uL (1.2-3.4); Lymphocytes % (manual) 24.6 %; Metamyelocytes # (manual) 0.13 K/uL (0-0); Metamyelocytes % (manual) 0.9 %; Monocytes # (manual) 0.51 K/uL (0.11-0.59); Monocytes % (manual) 3.5 %; Myelocytes # (manual) 0.13 K/uL (0-0); Myelocytes % (manual) 0.9 %; Neutrophils # (manual) 10.24 K/uL (1.4-6.5); Neutrophils % (manual) 70.1 %
[2020-10-11 02:17] LABS: Albumin Globulin Ratio 0.4 (0.9-2); Albumin Level 2.3 gm/dl (3.4-5.0); BUN Creatinine Ratio 10.5 (10-20); Bilirubin,Total 0.7 mg/dl (0.2-1); Calcium 7.7 mg/dl (8.5-10.1); Creatinine Clr Calc Pharmacy 27.9 ml/min; Est GFR (Non-African American) 19.8; Globulin 5.4 gm/dl (2.5-4.0); Potassium 6.8 mmol/L (3.5-5.1); Total Protein 7.7 gm/dl (6.4-8.2)
[2020-10-11] MEDS ORDERED: INSULIN HUMAN REGULAR PER UNIT 10 UNITS in SYRINGE 9.9 ML IV STA (02:29)
[2020-10-11 02:39] LABS: Beta-Hydroxybutyrate 1.53 mg/dl (0.2-2.81)
[2020-10-11 04:30] LABS: BUN Creatinine Ratio 11.6 (10-20); Calcium 7.4 mg/dl (8.5-10.1); Creatinine Clr Calc Pharmacy 27.8 ml/min; Est GFR (African American) 22.9; Est GFR (Non-African American) 19.8
[2020-10-11] MEDS ORDERED: GLUCAGON FOR INJ 1 MG VIAL SQ PRN (05:52)
[2020-10-11] MEDS ORDERED: CARBOHYDRATES FOR HYPOGLYCEMIA PO PRN (05:52)
--- NOTE | 2020-10-11 05:59 | Communication Note ---
Date of Service: October 11, 2020 Overnight patient's potassium level returned at 6.8. BG at the time was 310. I ordered 10 units of Regular Insulin. On recheck, K level down to 6.0. I also add basal insulin to patient's regimen: Lantus 10units BID. Glucose checks ACHS.
[2020-10-11] MEDS: SODIUM CHLORIDE 0.9% 1000ML 1,000 ML IV SCH ×2 (06:12→13:46)
[2020-10-11] MEDS: INSULIN ASPART 100 UNITS/ML 3 ML PEN SC SCH ×4 (08:23→20:54)
[2020-10-11] MEDS ORDERED: amLODIPine BESYLATE 5 MG TAB PO SCH (09:00)
[2020-10-11] MEDS ORDERED: INSULIN GLARGINE SOLOSTAR 100 UNITS/ML 3 ML PEN SC SCH (09:00)
[2020-10-11 09:12] LABS: BUN Creatinine Ratio 15.1 (10-20); Calcium 7.8 mg/dl (8.5-10.1); Est GFR (African American) 24.7; Est GFR (Non-African American) 21.3; Potassium 5.6 mmol/L (3.5-5.1)
[2020-10-11] MEDS ORDERED: PHARMACY GLYCEMIC MGMT CONSULT PRN (09:16)
--- NOTE | 2020-10-11 09:26 | Pharmacy Report ---
Pharmacy Glycemic Short Note 2 - Date of Service October 11, 2020 - Glycemic Short BSG Results (Last 24 hours): 10/10/20 10/10/20 10/11/20 17:31 21:14 00:47 Glucose 241 H 310 H* POC Glucose 318 H* 10/11/20 10/11/20 10/11/20 03:47 07:28 08:09 Glucose 274 H 261 H POC Glucose 253 H OUTPATIENT ANTIDIABETIC REGIMEN: * metformin 1 gm PO BID ASSESSMENT: * Mr Smart is a 65 y/o M who presented from the cancer center with tachycardia and hypotension. He was receiving chemotherapy so quite possibly received dexamethasone prior to this. * BSGs have been elevated. Received 10 units of IV insulin @ 0300 today due to hyperkalemia. Fasting BSG is 253 mg/dL. * Load with Lantus 35 units x 1 (weight-based stress of 2). Start weight-based dosing tomorrow morning. * Start Novolog weight-based stress of 3. * Additional doses this morning since patient already received AM insulin. PLAN FOR INPATIENT GLYCEMIC CONTROL: * Hold outpatient oral diabetes medications * Basal insulin * Lantus 35 units SQ x 1 then Lantus 27-40 units daily (Lantus 27 units if BSG < 120 mg/dL; Lantus 35 units if BSG 120-160 mg/dL; Lantus 40 units if BSG > 160 mg/dL) * Bolus insulin * NovoLog per scale ACHS or Q6hrs while NPO * Goal Range: Low 110 mg/dL - High 140 mg/dL * Correction Factor: 15 mg/dL/unit * Nutritional / Prandial insulin per carb ratio of 1 unit per 5 grams CHO consumed
[2020-10-11] MEDS ORDERED: INSULIN GLARGINE SOLOSTAR 100 UNITS/ML 3 ML PEN SC ONE ×2 (09:30)
[2020-10-11] MEDS ORDERED: INSULIN ASPART 100 UNITS/ML 3 ML PEN SC ONE (09:30)
[2020-10-11 09:45] LABS: Partial Thromboplastin Ratio 2.8
[2020-10-11 10:03] LABS: Partial Thromboplastin Time 72.8 Seconds (21.0-31.0)
[2020-10-11] MEDS: HEPARIN SODIUM/DEXTROSE 25,000 UNITS/500 ML BAG IV SCH (12:52)
--- NOTE | 2020-10-11 13:10 | Electrocardiogram Report ---
Test Reason : Blood Pressure : / mmHG Vent. Rate : 113 BPM Atrial Rate : 113 BPM P-R Int : 132 ms QRS Dur : 070 ms QT Int : 314 ms P-R-T Axes : 031 065 022 degrees QTc Int : 430 ms Sinus tachycardia Otherwise normal ECG When compared with ECG of 27-SEP-2020 09:40, No significant change was found Confirmed by Herbert Vo ([id number] on 10/11/2020 1:10:12 PM Referred By: Gardenia Harper Confirmed By:Yoan Vo
[2020-10-11] MEDS: LACTATED RINGER'S 1,000 ML IV SCH ×2 (14:27→20:54)
--- NOTE | 2020-10-11 14:42 | Hospitalist Progress Note ---
Date of Service October 11, 2020 Assessment & Plan (1) Sepsis: 65 yo M with hx metastatic colon cancer, Dm2, HLD,HTN presenting with symptoms of tachycardia, tachypnea, hypothermia, Sepsis in immunocompromised individual On current chemo regimen previously had a similar episode approximately 2 weeks ago with similar laboratory presentation and symptomology. The patient recovered well with empiric antibiotic therapy with Augmentin and supportive care. Notable exceptions to this most recent episode is the significant hypoxia and need for 2 L of oxygen to maintain adequate saturations. The etiology of his presentation is likely multifactorial stemming from the actual chemotherapeutic agent, any associated consequences on the body. However given his immunocompromise status and concerning chest x-ray will provide Levaquin for antibiotic coverage as well. Furthermore given his active cancer, history of clot, hypoxia and suspicious vitals of pulmonary embolism is certainly possible as well. CBC obtained was abnormal however this can be explained by chemotherapy, pro-Garth was greater than 50 and lactate was elevated as well however it is unclear if this is secondary to chemotherapy/ cell . -CXR showing Interstitial coarsening with basilar opacities indicative of pulmonary edema vs. multifocal pneumonia -Continue Levaquin daily -LR at 140 - blood cultures pending - trend CBC #Hypoxia Patient not previously requiring oxygen at baseline home. Initially required 6 L onset, has been weaned to 2 L of oxygen to maintain saturations. Etiology of his hypoxia is not entirely clear at present. Providing antibiotic therapy to cover for pneumonia.given history of DVT, current active cancer, likely prolonged sitting, and significant hypoxia of pulmonary emboli could explain his current presentation we are unable to obtain a CTA secondary to creatinine elevation therefore will be obtaining a VQ scan later today to look for incidental papillary emboli. In the interim we will provide heparin pending negative VQ scan. Finally this could represent progression of his metastatic disease as metastases are visible on lung CT and chest x-ray. -Continue heparin -As needed O2 to remain saturations greater than 90, wean as tolerated -Follow-up VQ scan #ANA secondary to suspected tumor lysis syndrome Given this is the second episode of elevated creatinine status post receiving chemotherapy I am concerned there is an element of tumor lysis syndrome versus generalized toxicity from the chemotherapeutic agent. Patient has not voided since prior to administration of the chemotherapy despite receiving significant fluids and p.o. hydration. Taken together with his elevated potassium, there is any concern for ARF. To that effect we will monitor BMPs every 6 hours until hyperkalemia and creatinine trending in the correct direction. In the interim avoid nephrotoxins, to consider discontinuing Metformin on discharge. -Every 6h BMPs -Replete electrolytes as indicated -LR running at 140 -Monitor UOP, BladderScan as needed -If creatinine continues to elevate, potassium continues to elevate, or patient begins to develop significant pulmonary edema may need to consider the need for urgent dialysis -If not making significant improvement can consider the addition of steroids #Stage IV colon cancer metastatic to multiple sites Obtains chemo at the [facility], currently has a medication that infused for 36 hours after initial infusion. Cannot locate notes regarding current chemotherapy regimen will obtain records. -To consider consulting hematology oncology #Diabetes Previously well controlled on 500 mg Metformin twice daily most recent A1c was 3 earlier this month was transition to [facility] during admission. Given the significant glucose elevation associated electrolyte derangements and complicated nature of this patient's presentation requesting pharmacy assistance in managing this patient's glycemic medications -Glycemic consult placed #Dyslipidemia Continue atorvastatin FENa: Diabetes type 2 Code Status: Full code DVT PPX: Heparin PT/OT: Ordered Dispo: PCU Jack Young MD PGY 2, FCM This chart was completed utilizing [employer] voice recognition software. Grammatical errors, random word insertions, pronoun errors, and in complete sentences are an occasional consequence of the system. Any questions or concerns about the content, text, or information contained within the body of this dictation should be addressed directly to the physician for clarification. (2) Hypoxia: (3) Elevated lactic acid level: (4) ANA (acute kidney injury): (5) Colon carcinoma metastatic to multiple sites: (6) Diabetes: (7) Dyslipidemia: Admission and Anticipated Discharge Date Admission Date: October 10, 2020 Supervising Physician Co-Signing Physician Notes I personally examined the patient and verified all adhikari points of history and exam, discussed case, and agree with decision making with Dr Young. Feeling better. No significant short of breath or other symptoms. He notes that he is considering whether or not he really wants to continue with chemotherapy, given how many lines of chemo he has been through he is not sure whether or not this chemo is actually helping with the cancer, and notes it is definitely causing him problems. He is comfortable with contemplating these decisions and their implications. He has voided today a couple times. Vitals noted, in general he is awake and alert pleasant no distress. HEENT normocephalic atraumatic mucous membranes moist, missing some teeth. Lungs clear to auscultation bilaterally may be somewhat diminished bibasilar but no rales rhonchi or wheezes good effort. Abdomen soft nondistended nontender no masses organomegaly. Labs and diagnostics noted. Septic pictureI suspect most of this is reactive to chemotherapyhe does not se em to totally fit for a true "tumor lysis syndrome" but his pattern last time as well as this time with renal failure, hyperkalemia, and an overall illness, seems to really relate to his chemotherapy. That said he is quite immune compromised, and with his hypoxia and chest x-ray findings it is somewhat difficult to rule out pneumoniaserial exams, low threshold for CT chest to better look at lung parenchyma, inflammatory markers, and follow. It also certainly possible he could be bacteremic, blood cultures have been drawn and are pending, continue empiric antibiotics for now as well. Acute renal failure with hyperkalemiarelated to chemotherapy. Improving with fluids. Continue to follow closely. Hyperkalemia improving. Stage IV colon cancerwe touched on end-of-life type discussions, he has been giving this a lot of thought himself, and is not sure he wants to continue with chemotherapy. I discussed that that would be a quite reasonable option given that everything that he has been through. Otherwise as above. Subjective Patient lying in bed this morning in no acute distress. Patient relate a history to me as described in history and physical. His current presentation is very similar to his prior presentation with the notable exception of increasing hypoxia. Patient with no acute events overnight, has had a bowel movement, tolerating his diet, sleeping, however reporting has not urinated since receiving therapy yesterday. Given his elevated potassium, elevated glucose, recent chemotherapy he certainly could be presenting with a tumor lysis syndrome. Acute concerns related to electrolyte, urination, questionable infection, all questions were answered. Physical Exam Physical Exam: General: Lying in bed in no acute distress HEENT: Normocephalic atraumatic Neck: Normal visual inspection, trachea midline Cardiac: Regular rate and rhythm I did not appreciate any significant murmurs rubs or gallops, normal S1, normal S2, negative pedal edema, negative calf tenderness Respiratory: Clear to auscultation bilaterally with symmetrical chest expansion did not appreciate significant wheezes, rales, rhonchi GI: Distended abdomen but otherwise nontender, bowel sounds present Neuro: Alert and oriented x4 Psych: Calm and cooperative with the interview Results & Data Results & Data ([facility]) Vital Signs (Past 12 Hours) Vital Signs Temp Pulse Pulse Resp BP Pulse Ox 10/11/20 12:51 36.5 C 99 H 20 115/61 94 10/11/20 08:15 36.6 C 96 H 20 104/61 93 10/11/20 07:15 91 H 10/11/20 04:16 36.4 C L 89 20 103/63 90 10/11/20 03:40 92 H 19 92 Laboratory Results 10/11/20 10/11/20 10/11/20 Range/Units 11:37 11:37 08:09 WBC (4.8-10.8) K/uL RBC (4.7-6.1) M/uL Hgb (14.0-18.0) g/dL Hct (42-52) % MCV (80-100) fL MCH (25-34) pg MCHC (32-36) g/dL RDW Std Deviation (36.4-46.3) fL RDW Coeff of Jeff (11.5-14.5) % Plt Count (130-400) K/uL MPV (7.4-10.4) fL Immature Gran % (Auto) % Neut % (Auto) % Lymph % (Auto) % Benton % (Auto) % Eos % (Auto) % Baso % (Auto) % Neut # (Auto) (1.4-6.5) K/uL Lymph # (Auto) (1.2-3.4) K/uL Benton # (Auto) (0.11-0.59) K/uL Eos # (Auto) (0-0.5) K/uL Baso # (Auto) (0-0.2) K/uL Immature Gran # (Auto) (0.00-0.02) K/uL Neutrophils % (Manual) % Lymphocytes % (Manual) % Monocytes % (Manual) % Metamyelocytes % (Man) % Myelocytes % (Man) % Neutrophils # (Manual) (1.4-6.5) K/uL Total Absolute Neuts (1.4-6.5) K/uL Lymphocytes # (Manual) (1.2-3.4) K/uL Total Abs Lymphocytes (1.2-3.4) K/uL Monocytes # (Manual) (0.11-0.59) K/uL Metamyelocytes # (Man) (0-0) K/uL Myelocytes # (Manual) (0-0) K/uL Hyposegmented Neuts PT (9.0-12.0) Seconds INR (0.9-1.1) APTT (21.0-31.0) Seconds PTT Ratio Sodium 132 L (136-145) mmol/L Potassium 5.6 H (3.5-5.1) mmol/L Chloride 105 (98-107) mmol/L Carbon Dioxide 20 L (21-32) mmol/L Anion Gap 8.0 (3-11) BUN 45 H (7-18) mg/dl Creatinine 2.98 H (0.6-1.4) mg/dl Est Cr Clr Drug Dosing 30.0 ml/min Est GFR ( Amer) 24.7 Est GFR (Non-Af Amer) 21.3 BUN/Creatinine Ratio 15.1 (10-20) Glucose 261 H (70-99) mg/dl POC Glucose 271 H 302 H* (70-99) mg/dl Lactate (0.4-2.0) mmol/L Calcium 7.8 L (8.5-10.1) mg/dl Total Bilirubin (0.2-1) mg/dl AST (15-37) U/L ALT (12-78) U/L Alkaline Phosphatase (45-117) U/L Troponin I (0-0.045) ng/ml Total Protein (6.4-8.2) gm/dl Albumin (3.4-5.0) gm/dl Globulin (2.5-4.0) gm/dl Albumin/Globulin Ratio (0.9-2) Beta-Hydroxybutyric Acd (0.2-2.81) mg/dl Procalcitonin (0-0.5) ng/ml Urine Color Urine Appearance (Clear) Urine pH (4.5-7.5) Ur Specific [place] (1.000-1.030) Urine Protein (Negative) Urine Glucose (UA) (Negative) Urine Ketones (Negative) Urine Blood (Negative) Urine Nitrite (Negative) Urine Bilirubin (Negative) Urine Urobilinogen (Negative) Ur Leukocyte Esterase (Negative) Urine WBC (Auto) (0-5) /hpf Urine RBC (Auto) (0-4) /hpf U Hyaline Cast (Auto) (0-5) /lpf U Epithel Cells (Auto) (0-5) /lpf Urine Bacteria (Auto) (Negative) Urine Yeast Nasal Screen MRSA (PCR) (Negative) COVID-19 Eval Order Influ A Molecular Assay (Negative) Influ B Molecular Assay (Negative) SARS-CoV-2, RNA, NAAT (NEGATIVE) 10/11/20 10/11/20 10/11/20 Range/Units 08:09 07:28 03:47 WBC (4.8-10.8) K/uL RBC (4.7-6.1) M/uL Hgb (14.0-18.0) g/dL Hct (42-52) % MCV (80-100) fL MCH (25-34) pg MCHC (32-36) g/dL RDW Std Deviation (36.4-46.3) fL RDW Coeff of Jeff (11.5-14.5) % Plt Count (130-400) K/uL MPV (7.4-10.4) fL Immature Gran % (Auto) % Neut % (Auto) % Lymph % (Auto) % Benton % (Auto) % Eos % (Auto) % Baso % (Auto) % Neut # (Auto) (1.4-6.5) K/uL Lymph # (Auto) (1.2-3.4) K/uL Benton # (Auto) (0.11-0.59) K/uL Eos # (Auto) (0-0.5) K/uL Baso # (Auto) (0-0.2) K/uL Immature Gran # (Auto) (0.00-0.02) K/uL Neutrophils % (Manual) % Lymphocytes % (Manual) % Monocytes % (Manual) % Metamyelocytes % (Man) % Myelocytes % (Man) % Neutrophils # (Manual) (1.4-6.5) K/uL Total Absolute Neuts (1.4-6.5) K/uL Lymphocytes # (Manual) (1.2-3.4) K/uL Total Abs Lymphocytes (1.2-3.4) K/uL Monocytes # (Manual) (0.11-0.59) K/uL Metamyelocytes # (Man) (0-0) K/uL Myelocytes # (Manual) (0-0) K/uL Hyposegmented Neuts PT (9.0-12.0) Seconds INR (0.9-1.1) APTT 72.8 H* (21.0-31.0) Seconds PTT Ratio 2.8 Sodium 135 L (136-145) mmol/L Potassium 6.0 H (3.5-5.1) mmol/L Chloride 107 (98-107) mmol/L Carbon Dioxide 19 L (21-32) mmol/L Anion Gap 9.0 (3-11) BUN 37 H (7-18) mg/dl Creatinine 3.17 H (0.6-1.4) mg/dl Est Cr Clr Drug Dosing 27.8 ml/min Est GFR ( Amer) 22.9 Est GFR (Non-Af Amer) 19.8 BUN/Creatinine Ratio 11.6 (10-20) Glucose 274 H (70-99) mg/dl POC Glucose 253 H (70-99) mg/dl Lactate (0.4-2.0) mmol/L Calcium 7.4 L (8.5-10.1) mg/dl Total Bilirubin (0.2-1) mg/dl AST (15-37) U/L ALT (12-78) U/L Alkaline Phosphatase (45-117) U/L Troponin I (0-0.045) ng/ml Total Protein (6.4-8.2) gm/dl Albumin (3.4-5.0) gm/dl Globulin (2.5-4.0) gm/dl Albumin/Globulin Ratio (0.9-2) Beta-Hydroxybutyric Acd (0.2-2.81) mg/dl Procalcitonin (0-0.5) ng/ml Urine Color Urine Appearance (Clear) Urine pH (4.5-7.5) Ur Specific [place] (1.000-1.030) Urine Protein (Negative) Urine Glucose (UA) (Negative) Urine Ketones (Negative) Urine Blood (Negative) Urine Nitrite (Negative) Urine Bilirubin (Negative) Urine Urobilinogen (Negative) Ur Leukocyte Esterase (Negative) Urine WBC (Auto) (0-5) /hpf Urine RBC (Auto) (0-4) /hpf U Hyaline Cast (Auto) (0-5) /lpf U Epithel Cells (Auto) (0-5) /lpf Urine Bacteria (Auto) (Negative) Urine Yeast Nasal Screen MRSA (PCR) (Negative) COVID-19 Eval Order Influ A Molecular Assay (Negative) Influ B Molecular Assay (Negative) SARS-CoV-2, RNA, NAAT (NEGATIVE) 10/11/20 10/11/20 10/11/20 Range/Units 00:47 00:47 00:47 WBC 14.61 H (4.8-10.8) K/uL RBC 3.48 L (4.7-6.1) M/uL Hgb 11.4 L (14.0-18.0) g/dL Hct 35.2 L (42-52) % MCV 101.1 H (80-100) fL MCH 32.8 (25-34) pg MCHC 32.4 (32-36) g/dL RDW Std Deviation 63.7 H (36.4-46.3) fL RDW Coeff of Jeff 17.2 H (11.5-14.5) % Plt Count 92 L (130-400) K/uL MPV 10.8 H (7.4-10.4) fL Immature Gran % (Auto) % Neut % (Auto) % Lymph % (Auto) % Benton % (Auto) % Eos % (Auto) % Baso % (Auto) % Neut # (Auto) (1.4-6.5) K/uL Lymph # (Auto) (1.2-3.4) K/uL Benton # (Auto) (0.11-0.59) K/uL Eos # (Auto) (0-0.5) K/uL Baso # (Auto) (0-0.2) K/uL Immature Gran # (Auto) (0.00-0.02) K/uL Neutrophils % (Manual) 70.1 % Lymphocytes % (Manual) 24.6 % Monocytes % (Manual) 3.5 % Metamyelocytes % (Man) 0.9 % Myelocytes % (Man) 0.9 % Neutrophils # (Manual) 10.24 H (1.4-6.5) K/uL Total Absolute Neuts 10.24 H (1.4-6.5) K/uL Lymphocytes # (Manual) 3.59 H (1.2-3.4) K/uL Total Abs Lymphocytes 3.59 H (1.2-3.4) K/uL Monocytes # (Manual) 0.51 (0.11-0.59) K/uL Metamyelocytes # (Man) 0.13 H (0-0) K/uL Myelocytes # (Manual) 0.13 H (0-0) K/uL Hyposegmented Neuts PT (9.0-12.0) Seconds INR (0.9-1.1) APTT 69.7 H* (21.0-31.0) Seconds PTT Ratio 2.7 Sodium 130 L (136-145) mmol/L Potassium 6.8 H* D (3.5-5.1) mmol/L Chloride 104 (98-107) mmol/L Carbon Dioxide 18 L (21-32) mmol/L Anion Gap 9.0 (3-11) BUN 33 H (7-18) mg/dl Creatinine 3.16 H D (0.6-1.4) mg/dl Est Cr Clr Drug Dosing 27.9 ml/min Est GFR ( Amer) 23.0 Est GFR (Non-Af Amer) 19.8 BUN/Creatinine Ratio 10.5 (10-20) Glucose 310 H* (70-99) mg/dl POC Glucose (70-99) mg/dl Lactate (0.4-2.0) mmol/L Calcium 7.7 L (8.5-10.1) mg/dl Total Bilirubin 0.7 (0.2-1) mg/dl AST 43 H (15-37) U/L ALT 31 (12-78) U/L Alkaline Phosphatase 100 (45-117) U/L Troponin I (0-0.045) ng/ml Total Protein 7.7 (6.4-8.2) gm/dl Albumin 2.3 L (3.4-5.0) gm/dl Globulin 5.4 H (2.5-4.0) gm/dl Albumin/Globulin Ratio 0.4 L (0.9-2) Beta-Hydroxybutyric Acd 1.53 (0.2-2.81) mg/dl Procalcitonin (0-0.5) ng/ml Urine Color Urine Appearance (Clear) Urine pH (4.5-7.5) Ur Specific [place] (1.000-1.030) Urine Protein (Negative) Urine Glucose (UA) (Negative) Urine Ketones (Negative) Urine Blood (Negative) Urine Nitrite (Negative) Urine Bilirubin (Negative) Urine Urobilinogen (Negative) Ur Leukocyte Esterase (Negative) Urine WBC (Auto) (0-5) /hpf Urine RBC (Auto) (0-4) /hpf U Hyaline Cast (Auto) (0-5) /lpf U Epithel Cells (Auto) (0-5) /lpf Urine Bacteria (Auto) (Negative) Urine Yeast Nasal Screen MRSA (PCR) (Negative) COVID-19 Eval Order Influ A Molecular Assay (Negative) Influ B Molecular Assay (Negative) SARS-CoV-2, RNA, NAAT (NEGATIVE) 10/10/20 10/10/20 10/10/20 Range/Units 21:30 21:14 20:15 WBC (4.8-10.8) K/uL RBC (4.7-6.1) M/uL Hgb (14.0-18.0) g/dL Hct (42-52) % MCV (80-100) fL MCH (25-34) pg MCHC (32-36) g/dL RDW Std Deviation (36.4-46.3) fL RDW Coeff of Jeff (11.5-14.5) % Plt Count (130-400) K/uL MPV (7.4-10.4) fL Immature Gran % (Auto) % Neut % (Auto) % Lymph % (Auto) % Benton % (Auto) % Eos % (Auto) % Baso % (Auto) % Neut # (Auto) (1.4-6.5) K/uL Lymph # (Auto) (1.2-3.4) K/uL Benton # (Auto) (0.11-0.59) K/uL Eos # (Auto) (0-0.5) K/uL Baso # (Auto) (0-0.2) K/uL Immature Gran # (Auto) (0.00-0.02) K/uL Neutrophils % (Manual) % Lymphocytes % (Manual) % Monocytes % (Manual) % Metamyelocytes % (Man) % Myelocytes % (Man) % Neutrophils # (Manual) (1.4-6.5) K/uL Total Absolute Neuts (1.4-6.5) K/uL Lymphocytes # (Manual) (1.2-3.4) K/uL Total Abs Lymphocytes (1.2-3.4) K/uL Monocytes # (Manual) (0.11-0.59) K/uL Metamyelocytes # (Man) (0-0) K/uL Myelocytes # (Manual) (0-0) K/uL Hyposegmented Neuts PT (9.0-12.0) Seconds INR (0.9-1.1) APTT (21.0-31.0) Seconds PTT Ratio Sodium (136-145) mmol/L Potassium (3.5-5.1) mmol/L Chloride (98-107) mmol/L Carbon Dioxide (21-32) mmol/L Anion Gap (3-11) BUN (7-18) mg/dl Creatinine (0.6-1.4) mg/dl Est Cr Clr Drug Dosing ml/min Est GFR ( Amer) Est GFR (Non-Af Amer) BUN/Creatinine Ratio (10-20) Glucose (70-99) mg/dl POC Glucose 318 H* (70-99) mg/dl Lactate 7.8 H* (0.4-2.0) mmol/L Calcium (8.5-10.1) mg/dl Total Bilirubin (0.2-1) mg/dl AST (15-37) U/L ALT (12-78) U/L Alkaline Phosphatase (45-117) U/L Troponin I (0-0.045) ng/ml Total Protein (6.4-8.2) gm/dl Albumin (3.4-5.0) gm/dl Globulin (2.5-4.0) gm/dl Albumin/Globulin Ratio (0.9-2) Beta-Hydroxybutyric Acd (0.2-2.81) mg/dl Procalcitonin (0-0.5) ng/ml Urine Color Dark Yellow Urine Appearance Clear (Clear) Urine pH 5.0 (4.5-7.5) Ur Specific [place] 1.023 (1.000-1.030) Urine Protein 1+ H (Negative) Urine Glucose (UA) 1+ H (Negative) Urine Ketones Negative (Negative) Urine Blood Negative (Negative) Urine Nitrite Negative (Negative) Urine Bilirubin Negative (Negative) Urine Urobilinogen Negative (Negative) Ur Leukocyte Esterase Trace H (Negative) Urine WBC (Auto) 1-5 (0-5) /hpf Urine RBC (Auto) 0-4 (0-4) /hpf U Hyaline Cast (Auto) 1-5 (0-5) /lpf U Epithel Cells (Auto) 10-20 H (0-5) /lpf Urine Bacteria (Auto) Negative (Negative) Urine Yeast Not Reportable Nasal Screen MRSA (PCR) (Negative) COVID-19 Eval Order Influ A Molecular Assay (Negative) Influ B Molecular Assay (Negative) SARS-CoV-2, RNA, NAAT (NEGATIVE) 10/10/20 10/10/20 10/10/20 Range/Units 19:25 19:25 18:46 WBC (4.8-10.8) K/uL RBC (4.7-6.1) M/uL Hgb (14.0-18.0) g/dL Hct (42-52) % MCV (80-100) fL MCH (25-34) pg MCHC (32-36) g/dL RDW Std Deviation (36.4-46.3) fL RDW Coeff of Jeff (11.5-14.5) % Plt Count (130-400) K/uL MPV (7.4-10.4) fL Immature Gran % (Auto) % Neut % (Auto) % Lymph % (Auto) % Benton % (Auto) % Eos % (Auto) % Baso % (Auto) % Neut # (Auto) (1.4-6.5) K/uL Lymph # (Auto) (1.2-3.4) K/uL Benton # (Auto) (0.11-0.59) K/uL Eos # (Auto) (0-0.5) K/uL Baso # (Auto) (0-0.2) K/uL Immature Gran # (Auto) (0.00-0.02) K/uL Neutrophils % (Manual) % Lymphocytes % (Manual) % Monocytes % (Manual) % Metamyelocytes % (Man) % Myelocytes % (Man) % Neutrophils # (Manual) (1.4-6.5) K/uL Total Absolute Neuts (1.4-6.5) K/uL Lymphocytes # (Manual) (1.2-3.4) K/uL Total Abs Lymphocytes (1.2-3.4) K/uL Monocytes # (Manual) (0.11-0.59) K/uL Metamyelocytes # (Man) (0-0) K/uL Myelocytes # (Manual) (0-0) K/uL Hyposegmented Neuts PT (9.0-12.0) Seconds INR (0.9-1.1) APTT (21.0-31.0) Seconds PTT Ratio Sodium (136-145) mmol/L Potassium (3.5-5.1) mmol/L Chloride (98-107) mmol/L Carbon Dioxide (21-32) mmol/L Anion Gap (3-11) BUN (7-18) mg/dl Creatinine (0.6-1.4) mg/dl Est Cr Clr Drug Dosing ml/min Est GFR ( Amer) Est GFR (Non-Af Amer) BUN/Creatinine Ratio (10-20) Glucose (70-99) mg/dl POC Glucose (70-99) mg/dl Lactate 5.4 H* (0.4-2.0) mmol/L Calcium (8.5-10.1) mg/dl Total Bilirubin (0.2-1) mg/dl AST (15-37) U/L ALT (12-78) U/L Alkaline Phosphatase (45-117) U/L Troponin I (0-0.045) ng/ml Total Protein (6.4-8.2) gm/dl Albumin (3.4-5.0) gm/dl Globulin (2.5-4.0) gm/dl Albumin/Globulin Ratio (0.9-2) Beta-Hydroxybutyric Acd (0.2-2.81) mg/dl Procalcitonin (0-0.5) ng/ml Urine Color Urine Appearance (Clear) Urine pH (4.5-7.5) Ur Specific [place] (1.000-1.030) Urine Protein (Negative) Urine Glucose (UA) (Negative) Urine Ketones (Negative) Urine Blood (Negative) Urine Nitrite (Negative) Urine Bilirubin (Negative) Urine Urobilinogen (Negative) Ur Leukocyte Esterase (Negative) Urine WBC (Auto) (0-5) /hpf Urine RBC (Auto) (0-4) /hpf U Hyaline Cast (Auto) (0-5) /lpf U Epithel Cells (Auto) (0-5) /lpf Urine Bacteria (Auto) (Negative) Urine Yeast Nasal Screen MRSA (PCR) Negative (Negative) COVID-19 Eval Order Influ A Molecular Assay Negative (Negative) Influ B Molecular Assay Negative (Negative) SARS-CoV-2, RNA, NAAT (NEGATIVE) 10/10/20 10/10/20 10/10/20 Range/Units 17:50 17:50 17:31 WBC (4.8-10.8) K/uL RBC (4.7-6.1) M/uL Hgb (14.0-18.0) g/dL Hct (42-52) % MCV (80-100) fL MCH (25-34) pg MCHC (32-36) g/dL RDW Std Deviation (36.4-46.3) fL RDW Coeff of Jeff (11.5-14.5) % Plt Count (130-400) K/uL MPV (7.4-10.4) fL Immature Gran % (Auto) % Neut % (Auto) % Lymph % (Auto) % Benton % (Auto) % Eos % (Auto) % Baso % (Auto) % Neut # (Auto) (1.4-6.5) K/uL Lymph # (Auto) (1.2-3.4) K/uL Benton # (Auto) (0.11-0.59) K/uL Eos # (Auto) (0-0.5) K/uL Baso # (Auto) (0-0.2) K/uL Immature Gran # (Auto) (0.00-0.02) K/uL Neutrophils % (Manual) % Lymphocytes % (Manual) % Monocytes % (Manual) % Metamyelocytes % (Man) % Myelocytes % (Man) % Neutrophils # (Manual) (1.4-6.5) K/uL Total Absolute Neuts (1.4-6.5) K/uL Lymphocytes # (Manual) (1.2-3.4) K/uL Total Abs Lymphocytes (1.2-3.4) K/uL Monocytes # (Manual) (0.11-0.59) K/uL Metamyelocytes # (Man) (0-0) K/uL Myelocytes # (Manual) (0-0) K/uL Hyposegmented Neuts PT (9.0-12.0) Seconds INR (0.9-1.1) APTT (21.0-31.0) Seconds PTT Ratio Sodium (136-145) mmol/L Potassium (3.5-5.1) mmol/L Chloride (98-107) mmol/L Carbon Dioxide (21-32) mmol/L Anion Gap (3-11) BUN (7-18) mg/dl Creatinine (0.6-1.4) mg/dl Est Cr Clr Drug Dosing ml/min Est GFR ( Amer) Est GFR (Non-Af Amer) BUN/Creatinine Ratio (10-20) Glucose (70-99) mg/dl POC Glucose (70-99) mg/dl Lactate (0.4-2.0) mmol/L Calcium (8.5-10.1) mg/dl Total Bilirubin (0.2-1) mg/dl AST (15-37) U/L ALT (12-78) U/L Alkaline Phosphatase (45-117) U/L Troponin I (0-0.045) ng/ml Total Protein (6.4-8.2) gm/dl Albumin (3.4-5.0) gm/dl Globulin (2.5-4.0) gm/dl Albumin/Globulin Ratio (0.9-2) Beta-Hydroxybutyric Acd (0.2-2.81) mg/dl Procalcitonin 50.81 H (0-0.5) ng/ml Urine Color Urine Appearance (Clear) Urine pH (4.5-7.5) Ur Specific [place] (1.000-1.030) Urine Protein (Negative) Urine Glucose (UA) (Negative) Urine Ketones (Negative) Urine Blood (Negative) Urine Nitrite (Negative) Urine Bilirubin (Negative) Urine Urobilinogen (Negative) Ur Leukocyte Esterase (Negative) Urine WBC (Auto) (0-5) /hpf Urine RBC (Auto) (0-4) /hpf U Hyaline Cast (Auto) (0-5) /lpf U Epithel Cells (Auto) (0-5) /lpf Urine Bacteria (Auto) (Negative) Urine Yeast Nasal Screen MRSA (PCR) (Negative) COVID-19 [id number] Influ A Molecular Assay (Negative) Influ B Molecular Assay (Negative) SARS-CoV-2, RNA, NAAT NEGATIVE (NEGATIVE) 10/10/20 10/10/20 10/10/20 Range/Units 17:31 17:31 17:31 WBC 11.74 H (4.8-10.8) K/uL RBC 4.01 L (4.7-6.1) M/uL Hgb 13.0 L (14.0-18.0) g/dL Hct 40.2 L (42-52) % MCV 100.2 H (80-100) fL MCH 32.4 (25-34) pg MCHC 32.3 (32-36) g/dL RDW Std Deviation 61.6 H (36.4-46.3) fL RDW Coeff of Jeff 16.8 H (11.5-14.5) % Plt Count 96 L (130-400) K/uL MPV 10.5 H (7.4-10.4) fL Immature Gran % (Auto) 1.0 % Neut % (Auto) 74.4 % Lymph % (Auto) 17.6 % B[place] % (Auto) 6.9 % Eos % (Auto) 0.0 % Baso % (Auto) 0.1 % Neut # (Auto) 8.73 H (1.4-6.5) K/uL Lymph # (Auto) 2.07 (1.2-3.4) K/uL Benton # (Auto) 0.81 H (0.11-0.59) K/uL Eos # (Auto) 0.00 (0-0.5) K/uL Baso # (Auto) 0.01 (0-0.2) K/uL Immature Gran # (Auto) 0.12 H (0.00-0.02) K/uL Neutrophils % (Manual) % Lymphocytes % (Manual) % Monocytes % (Manual) % Metamyelocytes % (Man) % Myelocytes % (Man) % Neutrophils # (Manual) (1.4-6.5) K/uL Total Absolute Neuts (1.4-6.5) K/uL Lymphocytes # (Manual) (1.2-3.4) K/uL Total Abs Lymphocytes (1.2-3.4) K/uL Monocytes # (Manual) (0.11-0.59) K/uL Metamyelocytes # (Man) (0-0) K/uL Myelocytes # (Manual) (0-0) K/uL Hyposegmented Neuts 1+ PT 11.6 (9.0-12.0) Seconds INR 1.2 H (0.9-1.1) APTT 22.5 (21.0-31.0) Seconds PTT Ratio 0.9 Sodium 134 L (136-145) mmol/L Potassium 4.8 (3.5-5.1) mmol/L Chloride 105 (98-107) mmol/L Carbon Dioxide 16 L (21-32) mmol/L Anion Gap 13.0 H (3-11) BUN 23 H (7-18) mg/dl Creatinine 2.18 H (0.6-1.4) mg/dl Est Cr Clr Drug Dosing 41.3 ml/min Est GFR ( Amer) 36.0 Est GFR (Non-Af Amer) 31.1 BUN/Creatinine Ratio 10.4 (10-20) Glucose 241 H (70-99) mg/dl POC Glucose (70-99) mg/dl Lactate (0.4-2.0) mmol/L Calcium 8.8 (8.5-10.1) mg/dl Total Bilirubin 0.6 (0.2-1) mg/dl AST 54 H (15-37) U/L ALT 36 (12-78) U/L Alkaline Phosphatase 150 H (45-117) U/L Troponin I < 0.015 (0-0.045) ng/ml Total Protein 8.2 (6.4-8.2) gm/dl Albumin 2.6 L (3.4-5.0) gm/dl Globulin 5.6 H (2.5-4.0) gm/dl Albumin/Globulin Ratio 0.5 L (0.9-2) Beta-Hydroxybutyric Acd (0.2-2.81) mg/dl Procalcitonin (0-0.5) ng/ml Urine Color Urine Appearance (Clear) Urine pH (4.5-7.5) Ur Specific [place] (1.000-1.030) Urine Protein (Negative) Urine Glucose (UA) (Negative) Urine Ketones (Negative) Urine Blood (Negative) Urine Nitrite (Negative) Urine Bilirubin (Negative) Urine Urobilinogen (Negative) Ur Leukocyte Esterase (Negative) Urine WBC (Auto) (0-5) /hpf Urine RBC (Auto) (0-4) /hpf U Hyaline Cast (Auto) (0-5) /lpf U Epithel Cells (Auto) (0-5) /lpf Urine Bacteria (Auto) (Negative) Urine Yeast Nasal Screen MRSA (PCR) (Negative) COVID-19 Eval Order Influ A Molecular Assay (Negative) Influ B Molecular Assay (Negative) SARS-CoV-2, RNA, NAAT (NEGATIVE) Medications Administered Current Inpatient Medications Acetaminophen (Acetaminophen 325 Mg Tab) 650 mg PO Q4H PRN PRN Reason: Pain or Fever Stop: 11/09/20 21:08 Dextrose (Dextrose 50% 50 Ml Syringe) 25 - 50 ml IV UD PRN; Protocol PRN Reason: Hypoglycemia Protocol Stop: 11/09/20 21:08 Glucagon (Glucagon For Inj 1 Mg Vial) 1 mg SQ UD PRN; Protocol PRN Reason: Hypoglycemia Protocol Stop: 11/09/20 21:08 Glucose (Glucose 10 Tabs/Tube) 4 - 8 tabs PO UD PRN; Protocol PRN Reason: Hypoglycemia Protocol Stop: 11/09/20 21:08 Glucose (Glucose 40% Gel 15 Gm Tube) 15 - 30 gm PO UD PRN; Protocol PRN Reason: Hypoglycemia Protocol Stop: 11/09/20 21:08 Heparin Sodium/Dextrose (Heparin Sodium/Dextrose) 25,000 units in 500 mls @ 26 mls/hr IV .[id number] [facility] [place]; Protocol Stop: 11/09/20 18:29 Last Admin: 10/11/20 12:52 Dose: 1,300 units/hr, 26 mls/hr Documented by: Prochlorperazine 5 mg/ Syringe 5 mls @ 5 mls/min IV Q6 PRN PRN Reason: Nausea And Vomiting Stop: 11/09/20 21:08 Lactated Ringer's (Lr) 1,000 mls @ 140 mls/hr IV .[id number] [facility] Stop: 11/10/20 14:29 Last Admin: 10/11/20 14:27 Dose: 140 mls/hr Documented by: Levofloxacin/Dextrose (Levaquin/D5w) 750 mg in 150 mls @ 100 mls/hr IV Q24H [facility] Stop: 10/18/20 14:29 Insulin Aspart (Insulin Aspart 100 Units/Ml 3 Ml Pen) 0 units SC ACHS [facility] [place] Stop: 11/09/20 21:08 Last Admin: 10/11/20 11:52 Dose: 22 units Documented by: Insulin Glargine (Insulin Glargine Solostar 100 Units/Ml 3 Ml Pen) 0 units SC QAM [facility] [place]; Protocol Stop: 11/11/20 08:59 Magnesium Hydroxide (Magnesium Hydroxide Susp 30 Ml Udc) 30 ml PO Q12H PRN PRN Reason: Constipation Stop: 11/09/20 21:08 Miscellaneous (Carbohydrates For Hypoglycemia ) 15 - 30 gm PO UD PRN PRN Reason: Hypoglycemia Protocol Stop: 11/09/20 21:08 Miscellaneous Information (Pharmacy Glycemic Mgmt Consult) 1 ea N/A UD PRN PRN Reason: Consult Stop: 11/10/20 09:15 Nitroglycerin (Nitroglycerin Sl 0.4 Mg/Tab Tab) 0.4 mg SL UD PRN PRN Reason: Chest Pain Stop: 11/09/20 21:08 Resident Activity Tracking Resident Involvement: Resident Care Provided Care Provided: Adult Hospital Medicine (1) Diabetes Diabetes mellitus type: type 2 (2) Sepsis Sepsis acute organ dysfunction status: unspecified Sepsis type: sepsis due to unspecified organism Qualified Code(s): A41.9 - Sepsis, unspecified organism
[2020-10-11 15:23] LABS: BUN Creatinine Ratio 19.7 (10-20); Calcium 7.4 mg/dl (8.5-10.1); Creatinine Clr Calc Pharmacy 33.9 ml/min; Est GFR (African American) 28.6; Est GFR (Non-African American) 24.7; Potassium 5.3 mmol/L (3.5-5.1)
[2020-10-11] MEDS ORDERED: levoFLOXacin/D5W 750 MG/150 ML BAG IV SCH (16:00)
[2020-10-11 16:17] LABS: Partial Thromboplastin Ratio 1.9
[2020-10-11 16:27] LABS: Partial Thromboplastin Time 50.1 Seconds (21.0-31.0)
[2020-10-11 16:32] LABS: C Reactive Protein 17.6 mg/dl (0-0.29)
--- NOTE | 2020-10-11 18:06 | Nuclear Medicine Report ---
NM pul perfusion CLINICAL HISTORY: Hypoxia. Metastatic colon cancer. COMPARISON STUDY: Chest CT August 10, 2020. Chest radiograph October 10, 2020. TECHNIQUE: 5.8 mCi of technetium 99m MAA was injected IV at 5:30 PM on October 11, 2020. Following i njection, imaging of the chest was carried out in the typical projections. No ventilation imaging cou ld be performed due to ventilation precautions. FINDINGS: Multiple perfusion defects are present. The largest is within the posterior basilar segment of the left lower lobe. This corresponds to a metastasis shown on CT of August 18, 2020. There is an additional moderate sized defect within the anterior segment of the right upper lobe. This is inde terminate. Exam is compromised given lack of ventilation imaging. Therefore, this study is technicall y indeterminate/intermediate probability for pulmonary embolus. IMPRESSION: Intermediate probability for pulmonary embolus, as described above. ACT 112: Negative or not required by law. Electronically signed by: Shakir Bill M.D. 10/11/2020 6:05 PM
--- NOTE | 2020-10-11 18:45 | Billing Data ---
Date of Service October 11, 2020 Coding Level of Care Code 18630 Subseq Hosp Care Lvl 3
[2020-10-11] MEDS ORDERED: POLYETHYLENE (MIRALAX) 17 GM PACK PO ONE (19:15)
[2020-10-11 21:30] LABS: BUN Creatinine Ratio 20.2 (10-20); Calcium 7.7 mg/dl (8.5-10.1); Creatinine Clr Calc Pharmacy 37.1 ml/min; Est GFR (African American) 31.9; Est GFR (Non-African American) 27.5; Potassium 5.1 mmol/L (3.5-5.1)
[2020-10-12 04:02] LABS: Hematocrit (blood only) 32.5 % (42-52); Hemoglobin 10.5 g/dL (14.0-18.0); Mean Corpuscular Hemoglobin 32.1 pg (25-34); Mean Corpuscular Hgb Conc 32.3 g/dL (32-36); Mean Corpuscular Volume 99.4 fL (80-100); RDW Coefficient of Variation 16.3 % (11.5-14.5); RDW Standard Deviation 58.9 fL (36.4-46.3); Red Blood Count 3.27 M/uL (4.7-6.1); White Blood Count 7.35 K/uL (4.8-10.8)
[2020-10-12 04:08] LABS: Immature Granulocytes # (auto) 0.01 K/uL (0.00-0.02); Immature Granulocytes % (auto) 0.1 %; Lymphocytes # (auto) 2.13 K/uL (1.2-3.4); Mean Platelet Volume 11.1 fL (7.4-10.4); Monocytes # (auto) 0.35 K/uL (0.11-0.59); Monocytes % (auto) 4.8 %; Neutrophils # (auto) 4.86 K/uL (1.4-6.5); Neutrophils % (auto) 66.1 %; Platelet Count 73 K/uL (130-400)
[2020-10-12 04:19] LABS: Partial Thromboplastin Ratio 1.4; Partial Thromboplastin Time 36.7 Seconds (21.0-31.0)
[2020-10-12 04:20] LABS: Albumin Level 2.6 gm/dl (3.4-5.0); BUN Creatinine Ratio 23.4 (10-20); Calcium 7.9 mg/dl (8.5-10.1); Est GFR (African American) 39.3; Est GFR (Non-African American) 33.9; Potassium 5.1 mmol/L (3.5-5.1)
[2020-10-12] MEDS: LACTATED RINGER'S 1,000 ML IV SCH ×2 (04:21→11:16)
[2020-10-12 04:23] LABS: Albumin Globulin Ratio 0.5 (0.9-2); Bilirubin,Total 0.7 mg/dl (0.2-1); Globulin 5.6 gm/dl (2.5-4.0); Total Protein 8.2 gm/dl (6.4-8.2)
[2020-10-12 04:26] LABS: Toxic Vacuolation 1+
[2020-10-12 05:51] LABS: Partial Thromboplastin Ratio 1.3; Partial Thromboplastin Time 33.7 Seconds (21.0-31.0)
[2020-10-12] MEDS ORDERED: HEPARIN IV BOLUS 3,000 UNITS in SYRINGE 0 ML IV ONE ×2 (05:55→13:30)
[2020-10-12] MEDS: HEPARIN SODIUM/DEXTROSE 25,000 UNITS/500 ML BAG IV SCH ×3 (06:35→07:49)
--- NOTE | 2020-10-12 07:45 | Hospitalist Progress Note ---
Date of Service October 12, 2020 Assessment & Plan (1) Sepsis: 65 yo M with hx metastatic colon cancer, Dm2, HLD,HTN presenting with symptoms of tachycardia, tachypnea, hypothermia, Sepsis in immunocompromised individual On current chemo regimen previously had a similar episode approximately 2 weeks ago with similar laboratory presentation and symptomology. The patient recovered well with empiric antibiotic therapy with Augmentin and supportive care. Notable exceptions to this most recent episode is the significant hypoxia and need for 2 L of oxygen to maintain adequate saturations. The etiology of his presentation is likely multifactorial stemming from the actual chemotherapeutic agent, any associated consequences on the body. However given his immunocompromise status and concerning chest x-ray will provide Levaquin for antibiotic coverage as well. Furthermore given his active cancer, history of clot, hypoxia and suspicious vitals of pulmonary embolism is certainly possible as well. CBC obtained was abnormal however this can be explained by chemotherapy, pro-Garth was greater than 50 and lactate was elevated as well however it is unclear if this is secondary to chemotherapy/ cell . Patient continued to improve from a septic standpoint overnight no longer meeting criteria for sepsis. It is unclear the etiology of his underlying condition. His VQ scan was intermediate for pulmonary embolism and his white count came down after administration of antibiotics. Overall his breathing is improving and the patient continues to improve. -VQ scan consistent with pulmonary emboli -Continue Levaquin daily -LR at 140 -blood cultures pending -Urine culture demonstrating skin justin -trend CBC #Hypoxia Patient not previously requiring oxygen at baseline home. Initially required 6 L onset, has been weaned to 2 L of oxygen to maintain saturations. Etiology of his hypoxia is not entirely clear at present. Providing antibiotic therapy to cover for pneumonia.given history of DVT, current active cancer, likely prolonged sitting, and significant hypoxia of pulmonary emboli could explain his current presentation we are unable to obtain a CTA secondary to creatinine elevation therefore will be obtaining a VQ scan later today to look for incidental papillary emboli. In the interim we will provide heparin pending negative VQ scan. Finally this could represent progression of his metastatic disease as metastases are visible on lung CT and chest x-ray. 10/12 patient now comfortable on room air no longer requiring oxygen therapy. VQ scan obtained yesterday was indeterminate for pulmonary emboli, given the perfusion defects, active cancer, new increase hypoxia I think benefits of anticoagulation outweigh the risks. -Continue heparin -Plan to transition to apixaban -As needed O2 to remain saturations greater than 90, wean as tolerated -Tolerating room air #ANA secondary to suspected tumor lysis syndrome Given this is the second episode of elevated creatinine status post receiving chemotherapy I am concerned there is an element of tumor lysis syndrome versus generalized toxicity from the chemotherapeutic agent. Patient has not voided since prior to administration of the chemotherapy despite receiving significant fluids and p.o. hydration. Taken together with his elevated potassium, there is any concern for ARF. To that effect we will monitor BMPs every 6 hours until hyperkalemia and creatinine trending in the correct direction. In the interim avoid nephrotoxins, to consider discontinuing Metformin on discharge. His BMPs have continued to improve throughout the admission most recent creatinine was 1.9 which is significantly improved from yesterday, potassium is normalizing as well most recently 5.1. -Daily BMP -Creatinine significantly improved -Potassium trending down most recently 5.1 -LR running at 140 -Monitor UOP, BladderScan as needed -Excellent UOP overnight #Stage IV colon cancer metastatic to multiple sites Obtains chemo at the [facility], currently has a medication that infused for 36 hours after initial infusion. Cannot locate notes regarding current chemotherapy regimen will obtain records. -To consider consulting hematology oncology #Diabetes Previously well controlled on 500 mg Metformin twice daily most recent A1c was 3 earlier this month was transition to SSI during admission. Given the significant glucose elevation associated electrolyte derangements and complicated nature of this patient's presentation requesting pharmacy assistance in managing this patient's glycemic medications. Would recommend DC Metformin on discharge given his significant ANA and likely need for further nephrotoxic medications in the treatment of his cancer, transition to sliding scale -Glycemic consult placed #Dyslipidemia Continue atorvastatin FENa: Diabetes type 2 Code Status: Full code DVT PPX: Heparin PT/OT: Ordered Dispo: PCU Jack Young MD PGY 2, FCM This chart was completed utilizing [employer] voice recognition software. Grammatical errors, random word insertions, pronoun errors, and in complete sentences are an occasional consequence of the system. Any questions or concerns about the content, text, or information contained within the body of this dictation should be addressed directly to the physician for clarification. Admission and Anticipated Discharge Date Admission Date: October 10, 2020 Supervising Physician Co-Signing Physician Notes I personally examined the patient and verified all adhikari points of history and exam, discussed case, and agree with decision making with Dr Young see discharge summary Subjective AllergiesPatient lying in bed this morning in no acute distress. Patient reported no acute events overnight, and slight bit of difficulty sleeping but otherwise doing well. Diet, voiding a ton, stooling, sleeping okay. We spent some time talking about his prognosis, indications to continue or discontinue chemotherapy, and providing education about the symptoms for which she presented. Patient verbalized understanding. My understanding is that the patient will meet with his oncologist as an outpatient and evaluate the chemotherapeutics effectiveness on treating his underlying malignancy. If there is no significant effect from the chemotherapy he will most likely discontinue it in favor of quality of life. This is reasonable. All questions answered acute concerns related to discharge Physical Exam Physical Exam: General: Lying in bed in no acute distress HEENT: Normocephalic atraumatic Neck: Normal visual inspection, trachea midline Cardiac: Regular rate and rhythm I did not appreciate any significant murmurs rubs or gallops, normal S1, normal S2, negative pedal edema, negative calf tenderness Respiratory: Clear to auscultation bilaterally with symmetrical chest expansion did not appreciate significant wheezes, rales, rhonchi GI: Distended abdomen but otherwise nontender, bowel sounds present Neuro: Alert and oriented x4 Psych: Calm and cooperative with the interview Results & Data Results & Data ([facility]) Vital Signs (Past 12 Hours) Vital Signs Temp Pulse Pulse Resp BP Pulse Ox 10/12/20 03:33 99 H 16 90 10/12/20 03:07 36.8 C 100 H 19 123/81 95 10/11/20 22:56 37.0 C 98 H 21 131/70 93 10/11/20 22:40 104 H 18 94 10/11/20 20:05 93 Laboratory Results 10/12/20 10/12/20 10/12/20 Range/Units 07:18 05:24 03:03 WBC (4.8-10.8) K/uL RBC (4.7-6.1) M/uL Hgb (14.0-18.0) g/dL Hct (42-52) % MCV (80-100) fL MCH (25-34) pg MCHC (32-36) g/dL RDW Std Deviation (36.4-46.3) fL RDW Coeff of Jeff (11.5-14.5) % Plt Count (130-400) K/uL MPV (7.4-10.4) fL Immature Gran % (Auto) % Neut % (Auto) % Lymph % (Auto) % [place] % (Auto) % Eos % (Auto) % Baso % (Auto) % Neut # (Auto) (1.4-6.5) K/uL Lymph # (Auto) (1.2-3.4) K/uL [place] # (Auto) (0.11-0.59) K/uL Eos # (Auto) (0-0.5) K/uL Baso # (Auto) (0-0.2) K/uL Immature Gran # (Auto) (0.00-0.02) K/uL Toxic Vacuolation APTT 33.7 H (21.0-31.0) Seconds PTT Ratio 1.3 Sodium 138 (136-145) mmol/L Potassium 5.1 (3.5-5.1) mmol/L Chloride 110 H (98-107) mmol/L Carbon Dioxide 21 (21-32) mmol/L Anion Gap 7.0 (3-11) BUN 48 H (7-18) mg/dl Creatinine 2.03 H D (0.6-1.4) mg/dl Est Cr Clr Drug Dosing 44.0 ml/min Est GFR ( Amer) 39.3 Est GFR (Non-Af Amer) 33.9 BUN/Creatinine Ratio 23.4 H (10-20) Glucose 177 H (70-99) mg/dl POC Glucose 199 H (70-99) mg/dl Calcium 7.9 L (8.5-10.1) mg/dl Total Bilirubin 0.7 (0.2-1) mg/dl AST 28 (15-37) U/L ALT 28 (12-78) U/L Alkaline Phosphatase 109 (45-117) U/L C-Reactive Protein (0-0.29) mg/dl Total Protein 8.2 (6.4-8.2) gm/dl Albumin 2.6 L (3.4-5.0) gm/dl Globulin 5.6 H (2.5-4.0) gm/dl Albumin/Globulin Ratio 0.5 L (0.9-2) Procalcitonin (0-0.5) ng/ml Specimen Hemolysis 10/12/20 10/12/20 10/11/20 Range/Units 03:03 03:03 20:44 WBC 7.35 (4.8-10.8) K/uL RBC 3.27 L (4.7-6.1) M/uL Hgb 10.5 L (14.0-18.0) g/dL Hct 32.5 L (42-52) % MCV 99.4 (80-100) fL MCH 32.1 (25-34) pg MCHC 32.3 (32-36) g/dL RDW Std Deviation 58.9 H (36.4-46.3) fL RDW Coeff of Jeff 16.3 H (11.5-14.5) % Plt Count 73 L (130-400) K/uL MPV 11.1 H (7.4-10.4) fL Immature Gran % (Auto) 0.1 % Neut % (Auto) 66.1 % Lymph % (Auto) 29.0 % [place] % (Auto) 4.8 % Eos % (Auto) 0.0 % Baso % (Auto) 0.0 % Neut # (Auto) 4.86 (1.4-6.5) K/uL Lymph # (Auto) 2.13 (1.2-3.4) K/uL [place] # (Auto) 0.35 (0.11-0.59) K/uL Eos # (Auto) 0.00 (0-0.5) K/uL Baso # (Auto) 0.00 (0-0.2) K/uL Immature Gran # (Auto) 0.01 (0.00-0.02) K/uL Toxic Vacuolation 1+ APTT 36.7 H (21.0-31.0) Seconds PTT Ratio 1.4 Sodium (136-145) mmol/L Potassium (3.5-5.1) mmol/L Chloride (98-107) mmol/L Carbon Dioxide (21-32) mmol/L Anion Gap (3-11) BUN (7-18) mg/dl Creatinine (0.6-1.4) mg/dl Est Cr Clr Drug Dosing ml/min Est GFR ( Amer) Est GFR (Non-Af Amer) BUN/Creatinine Ratio (10-20) Glucose (70-99) mg/dl POC Glucose 228 H (70-99) mg/dl Calcium (8.5-10.1) mg/dl Total Bilirubin (0.2-1) mg/dl AST (15-37) U/L ALT (12-78) U/L Alkaline Phosphatase (45-117) U/L C-Reactive Protein (0-0.29) mg/dl Total Protein (6.4-8.2) gm/dl Albumin (3.4-5.0) gm/dl Globulin (2.5-4.0) gm/dl Albumin/Globulin Ratio (0.9-2) Procalcitonin (0-0.5) ng/ml Specimen Hemolysis 10/11/20 10/11/20 10/11/20 Range/Units 20:40 16:40 15:48 WBC (4.8-10.8) K/uL RBC (4.7-6.1) M/uL Hgb (14.0-18.0) g/dL Hct (42-52) % MCV (80-100) fL MCH (25-34) pg MCHC (32-36) g/dL RDW Std Deviation (36.4-46.3) fL RDW Coeff of Jeff (11.5-14.5) % Plt Count (130-400) K/uL MPV (7.4-10.4) fL Immature Gran % (Auto) % Neut % (Auto) % Lymph % (Auto) % [place] % (Auto) % Eos % (Auto) % Baso % (Auto) % Neut # (Auto) (1.4-6.5) K/uL Lymph # (Auto) (1.2-3.4) K/uL [place] # (Auto) (0.11-0.59) K/uL Eos # (Auto) (0-0.5) K/uL Baso # (Auto) (0-0.2) K/uL Immature Gran # (Auto) (0.00-0.02) K/uL Toxic Vacuolation APTT 50.1 H* (21.0-31.0) Seconds PTT Ratio 1.9 Sodium 135 L (136-145) mmol/L Potassium 5.1 (3.5-5.1) mmol/L Chloride 107 (98-107) mmol/L Carbon Dioxide 23 (21-32) mmol/L Anion Gap 5.0 (3-11) BUN 49 H (7-18) mg/dl Creatinine 2.41 H (0.6-1.4) mg/dl Est Cr Clr Drug Dosing 37.1 ml/min Est GFR ( Amer) 31.9 Est GFR (Non-Af Amer) 27.5 BUN/Creatinine Ratio 20.2 H (10-20) Glucose 216 H (70-99) mg/dl POC Glucose 280 H (70-99) mg/dl Calcium 7.7 L (8.5-10.1) mg/dl Total Bilirubin (0.2-1) mg/dl AST (15-37) U/L ALT (12-78) U/L Alkaline Phosphatase (45-117) U/L C-Reactive Protein (0-0.29) mg/dl Total Protein (6.4-8.2) gm/dl Albumin (3.4-5.0) gm/dl Globulin (2.5-4.0) gm/dl Albumin/Globulin Ratio (0.9-2) Procalcitonin (0-0.5) ng/ml Specimen Hemolysis 10/11/20 10/11/20 10/11/20 Range/Units 14:37 14:37 11:37 WBC (4.8-10.8) K/uL RBC (4.7-6.1) M/uL Hgb (14.0-18.0) g/dL Hct (42-52) % MCV (80-100) fL MCH (25-34) pg MCHC (32-36) g/dL RDW Std Deviation (36.4-46.3) fL RDW Coeff of Jeff (11.5-14.5) % Plt Count (130-400) K/uL MPV (7.4-10.4) fL Immature Gran % (Auto) % Neut % (Auto) % Lymph % (Auto) % [place] % (Auto) % Eos % (Auto) % Baso % (Auto) % Neut # (Auto) (1.4-6.5) K/uL Lymph # (Auto) (1.2-3.4) K/uL [place] # (Auto) (0.11-0.59) K/uL Eos # (Auto) (0-0.5) K/uL Baso # (Auto) (0-0.2) K/uL Immature Gran # (Auto) (0.00-0.02) K/uL Toxic Vacuolation APTT (21.0-31.0) Seconds PTT Ratio Sodium 134 L (136-145) mmol/L Potassium 5.3 H (3.5-5.1) mmol/L Chloride 107 (98-107) mmol/L Carbon Dioxide 20 L (21-32) mmol/L Anion Gap 7.0 (3-11) BUN 52 H (7-18) mg/dl Creatinine 2.64 H D (0.6-1.4) mg/dl Est Cr Clr Drug Dosing 33.9 ml/min Est GFR ( Amer) 28.6 Est GFR (Non-Af Amer) 24.7 BUN/Creatinine Ratio 19.7 (10-20) Glucose 281 H (70-99) mg/dl POC Glucose 271 H (70-99) mg/dl Calcium 7.4 L (8.5-10.1) mg/dl Total Bilirubin (0.2-1) mg/dl AST (15-37) U/L ALT (12-78) U/L Alkaline Phosphatase (45-117) U/L C-Reactive Protein 17.60 H (0-0.29) mg/dl Total Protein (6.4-8.2) gm/dl Albumin (3.4-5.0) gm/dl Globulin (2.5-4.0) gm/dl Albumin/Globulin Ratio (0.9-2) Procalcitonin 88.43 H (0-0.5) ng/ml Specimen Hemolysis 10/11/20 10/11/20 10/11/20 Range/Units 11:37 08:09 08:09 WBC (4.8-10.8) K/uL RBC (4.7-6.1) M/uL Hgb (14.0-18.0) g/dL Hct (42-52) % MCV (80-100) fL MCH (25-34) pg MCHC (32-36) g/dL RDW Std Deviation (36.4-46.3) fL RDW Coeff of Jeff (11.5-14.5) % Plt Count (130-400) K/uL MPV (7.4-10.4) fL Immature Gran % (Auto) % Neut % (Auto) % Lymph % (Auto) % [place] % (Auto) % Eos % (Auto) % Baso % (Auto) % Neut # (Auto) (1.4-6.5) K/uL Lymph # (Auto) (1.2-3.4) K/uL [place] # (Auto) (0.11-0.59) K/uL Eos # (Auto) (0-0.5) K/uL Baso # (Auto) (0-0.2) K/uL Immature Gran # (Auto) (0.00-0.02) K/uL Toxic Vacuolation APTT 72.8 H* (21.0-31.0) Seconds PTT Ratio 2.8 Sodium 132 L (136-145) mmol/L Potassium 5.6 H (3.5-5.1) mmol/L Chloride 105 (98-107) mmol/L Carbon Dioxide 20 L (21-32) mmol/L Anion Gap 8.0 (3-11) BUN 45 H (7-18) mg/dl Creatinine 2.98 H (0.6-1.4) mg/dl Est Cr Clr Drug Dosing 30.0 ml/min Est GFR ( Amer) 24.7 Est GFR (Non-Af Amer) 21.3 BUN/Creatinine Ratio 15.1 (10-20) Glucose 261 H (70-99) mg/dl POC Glucose 302 H* (70-99) mg/dl Calcium 7.8 L (8.5-10.1) mg/dl Total Bilirubin (0.2-1) mg/dl AST (15-37) U/L ALT (12-78) U/L Alkaline Phosphatase (45-117) U/L C-Reactive Protein (0-0.29) mg/dl Total Protein (6.4-8.2) gm/dl Albumin (3.4-5.0) gm/dl Globulin (2.5-4.0) gm/dl Albumin/Globulin Ratio (0.9-2) Procalcitonin (0-0.5) ng/ml Specimen Hemolysis Medications Administered Current Inpatient Medications Acetaminophen (Acetaminophen 325 Mg Tab) 650 mg PO Q4H PRN PRN Reason: Pain or Fever Stop: 03/21/21 21:08 Dextrose (Dextrose 50% 50 Ml Syringe) 25 - 50 ml IV UD PRN; Protocol PRN Reason: Hypoglycemia Protocol Stop: 11/09/20 21:08 Glucagon (Glucagon For Inj 1 Mg Vial) 1 mg SQ UD PRN; Protocol PRN Reason: Hypoglycemia Protocol Stop: 11/09/20 21:08 Glucose (Glucose 10 Tabs/Tube) 4 - 8 tabs PO UD PRN; Protocol PRN Reason: Hypoglycemia Protocol Stop: 11/09/20 21:08 Glucose (Glucose 40% Gel 15 Gm Tube) 15 - 30 gm PO UD PRN; Protocol PRN Reason: Hypoglycemia Protocol Stop: 11/09/20 21:08 Heparin Sodium/Dextrose (Heparin Sodium/Dextrose) 25,000 units in 500 mls @ 29 mls/hr IV .[id number] [facility]; Protocol Stop: 11/09/20 18:29 Last Admin: 10/12/20 07:42 Dose: Not Given Documented by: Prochlorperazine 5 mg/ Syringe 5 mls @ 5 mls/min IV Q6 PRN PRN Reason: Nausea And Vomiting Stop: 11/09/20 21:08 Lactated Ringer's (Lr) 1,000 mls @ 140 mls/hr IV .Q7H9M [facility] Stop: 11/10/20 14:29 Last Admin: 10/12/20 04:21 Dose: 140 mls/hr Documented by: Levofloxacin/Dextrose (Levaquin/D5w) 750 mg in 150 mls @ 100 mls/hr IV Q48H [facility]; Protocol Stop: 10/18/20 15:59 Last Infusion: 10/11/20 17:11 Dose: Infused Documented by: Insulin Aspart (Insulin Aspart 100 Units/Ml 3 Ml Pen) 0 units SC ACHS [facility] Stop: 11/09/20 21:08 Last Admin: 10/11/20 20:54 Dose: 6 units Documented by: Insulin Glargine (Insulin Glargine Solostar 100 Units/Ml 3 Ml Pen) 0 units SC QAM [facility]; Protocol Stop: 11/11/20 08:59 Magnesium Hydroxide (Magnesium Hydroxide Susp 30 Ml Udc) 30 ml PO Q12H PRN PRN Reason: Constipation Stop: 11/09/20 21:08 Miscellaneous (Carbohydrates For Hypoglycemia ) 15 - 30 gm PO UD PRN PRN Reason: Hypoglycemia Protocol Stop: 11/09/20 21:08 Miscellaneous Information (Pharmacy Glycemic Mgmt Consult) 1 ea N/A UD PRN PRN Reason: Consult Stop: 11/10/20 09:15 Nitroglycerin (Nitroglycerin Sl 0.4 Mg/Tab Tab) 0.4 mg SL UD PRN PRN Reason: Chest Pain Stop: 11/09/20 21:08 Resident Activity Tracking Resident Involvement: Resident Care Provided Care Provided: Adult Hospital Medicine (1) Sepsis Sepsis acute organ dysfunction status: unspecified Sepsis type: sepsis due to unspecified organism Qualified Code(s): A41.9 - Sepsis, unspecified organism
[2020-10-12] MEDS: INSULIN ASPART 100 UNITS/ML 3 ML PEN SC SCH ×2 (07:51→11:40)
[2020-10-12 08:27] LABS: BUN Creatinine Ratio 23.2 (10-20); Calcium 8.3 mg/dl (8.5-10.1); Creatinine Clr Calc Pharmacy 47.1 ml/min; Est GFR (African American) 42.5; Est GFR (Non-African American) 36.7; Potassium 5.1 mmol/L (3.5-5.1)
[2020-10-12] MEDS ORDERED: INSULIN GLARGINE SOLOSTAR 100 UNITS/ML 3 ML PEN SC SCH (09:00)
--- NOTE | 2020-10-12 10:07 | Discharge Summary ---
Date of Service October 12, 2020 Admission HPI Per Admitting Provider 65-year-old male with a past medical history colon cancer stage IV undergoing chemotherapeutic treatment, dyslipidemia, diabetes, hypertension who presents to the emergency department from [facility] after getting 4 hours of chemotherapy and becoming hypotensive and tachycardic during that time. Of note he received chemo approximately 2 weeks ago and was admitted after having a similar reaction. At that time he had been hypothermic, tachycardic, tach tachypneic, hypotensive and was admitted for severe sepsis. Today he states that he had some mild chills during chemotherapy with is not unusual for him. He denies any changes in vision, dizziness, headache, chest pain, shortness of breath. He says he has some of the normal chemotherapy associated nausea but no episodes of emesis or diarrhea. He states that he normally has a faint cough which has not changed and is not productive. He denies any numbness or tingling or generalized weakness. ED course:Initial vitals blood pressure 107/48, pulse rate of 120, respiratory rate 30, pulse ox 86 on room air. Afebrile.Due to ANA and creatinine of 2.18 unable to get CTA of chest to assess for pulmonary embolus.A total of 2 L of sodium chloride boluses. Is also initiated on a heparin drip with a bolus to treat presumed pulmonary embolus. Started on Levaquin for concerns of infection. Primary Care Provider: Geronimo Valdes Admission Exam Per Admitting Provider Constitutional: Laying in bed in no acute distress,speaking comfortably Card: RRR, no mrg Pulm: CTA BL, crackles at bases bilaterally, no cough, no rhonchi, breathing comfortably on 6L NC satting 93 Gi: nontender, nondistended, soft, no rebound, no guarding, normal bowel sounds Ext: 2+ peripheral pulses, no edema Neuro: A&Ox3, moving all extremities Principal Diagnosis Acute hypoxic respiratory failure presenting with a septic picture secondary to pulmonary emboli and pneumonia complicated by acute renal failure Discharge Data Allergies Allergy/AdvReac Type Severity Reaction Status Date / Time cefepime Allergy Unknown Rash Verified 10/10/20 17:54 piperacillin [From Zosyn] Allergy Unknown Rash Verified 10/10/20 17:54 tazobactam [From Zosyn] Allergy Unknown Rash Verified 10/10/20 17:54 Consultations 10/10/20 18:24 ED Decision to Admit Stat Ordered Studies 10/10/20 18:30 US venous doppler [facility] Stat Hospital Course (1) Sepsis: 65 yo M with hx metastatic colon cancer, Dm2, HLD,HTN presenting with symptoms of tachycardia, tachypnea, hypothermia, Sepsis in immunocompromised individual On current chemo regimen previously had a similar episode approximately 2 weeks ago with similar laboratory presentation and symptomology. The patient recovered well with empiric antibiotic therapy with Augmentin and supportive care. Notable exceptions to this most recent episode is the significant hypoxia and need for 2 L of oxygen to maintain adequate saturations. The etiology of his presentation is likely multifactorial stemming from the actual chemotherapeutic agent, any associated consequences on the body. However given his immunocompromise status and concerning chest x-ray will provide Levaquin for antibiotic coverage as well. Furthermore given his active cancer, history of clot, hypoxia and suspicious vitals of pulmonary embolism is certainly possible as well. CBC obtained was abnormal however this can be explained by chemotherapy, pro-Garth was greater than 50 and lactate was elevated as well however it is unclear if this is secondary to chemotherapy/ cell . -CXR showing Interstitial coarsening with basilar opacities indicative of pulmonary edema vs. multifocal pneumonia -Continue Levaquin daily -LR at 140 - blood cultures pending - trend CBC #Hypoxia Patient not previously requiring oxygen at baseline home. Initially required 6 L onset, has been weaned to 2 L of oxygen to maintain saturations. Etiology of his hypoxia is not entirely clear at present. Providing antibiotic therapy to cover for pneumonia.given history of DVT, current active cancer, likely prolonged sitting, and significant hypoxia of pulmonary emboli could explain his current presentation we are unable to obtain a CTA secondary to creatinine elevation therefore will be obtaining a VQ scan later today to look for incidental papillary emboli. In the interim we will provide heparin pending negative VQ scan. Finally this could represent progression of his metastatic disease as metastases are visible on lung CT and chest x-ray. -Continue heparin -As needed O2 to remain saturations greater than 90, wean as tolerated -Follow-up VQ scan #ANA secondary to suspected tumor lysis syndrome Given this is the second episode of elevated creatinine status post receiving chemotherapy I am concerned there is an element of tumor lysis syndrome versus generalized toxicity from the chemotherapeutic agent. Patient has not voided since prior to administration of the chemotherapy despite receiving significant fluids and p.o. hydration. Taken together with his elevated potassium, there is any concern for ARF. To that effect we will monitor BMPs every 6 hours until hyperkalemia and creatinine trending in the correct direction. In the interim avoid nephrotoxins, to consider discontinuing Metformin on discharge. -Every 6h BMPs -Replete electrolytes as indicated -LR running at 140 -Monitor UOP, BladderScan as needed -If creatinine continues to elevate, potassium continues to elevate, or patient begins to develop significant pulmonary edema may need to consider the need for urgent dialysis -If not making significant improvement can consider the addition of steroids #Stage IV colon cancer metastatic to multiple sites Obtains chemo at the cancer pending sale to [facility], currently has a medication that infused for 36 hours after initial infusion. Cannot locate notes regarding current chemotherapy regimen will obtain records. -To consider consulting hematology oncology #Diabetes Previously well controlled on 500 mg Metformin twice daily most recent A1c was 3 earlier this month was transition to SSI during admission. Given the significant glucose elevation associated electrolyte derangements and complicated nature of this patient's presentation requesting pharmacy assistance in managing this patient's glycemic medications -Glycemic consult placed #Dyslipidemia Continue atorvastatin FENa: Diabetes type 2 Code Status: Full code DVT PPX: Heparin PT/OT: Ordered Dispo: PCU Jack Young MD PGY 2, FCM This chart was completed utilizing [employer] voice recognition software. Grammatical errors, random word insertions, pronoun errors, and in complete sentences are an occasional consequence of the system. Any questions or concerns about the content, text, or information contained within the body of this dictation should be addressed directly to the physician for clarification. Discharge Plan Discharge Items Patient Disposition: Home - Self-Care Reason For Visit: ACUTE HYPOXIC RESPIRATORY FAILURE, HYPOTENSION Discharge Diagnosis: Acute hypoxic respiratory failure presenting with a septic picture secondary to pulmonary emboli and pneumonia complicated by acute renal failure Activity: Resume your previous activity Non-emergency contact: Primary Care Provider and Oncologist Call non-emergency contact if: you have any medication questions, your pain is worsening and your temperature is above 101 Follow-up/Referrals: Geronimo Valdes [Primary Care Provider] - Diet: Carb Consistent or DM2 Addtl Attending Provider Instructions: Care instructions: You were admitted to [facility] for treatment of pulmonary embolism, acute kidney failure, and pneumonia. While hospitalized we obtained imaging studies which were suggestive of a pulmonary embolism. To that extent we placed you on a blood thinner apixaban. You are to take this as instructed. Additionally while hospitalized there was some concern for pneumonia given your elevated white count, increasing respiratory symptoms, and imaging studies to that effect we have placed you on a medication called Levaquin. Please continue to take this for 5 more days as an outpatient to complete a total of a 7-day course. Additionally while hospitalized you laboratory numbers indicated that your kidneys were injured. The source of kidney injury is not entirely clear, could be secondary to effects of the chemotherapy versus symptoms from cell destruction in your body versus a serendipitous finding. To that extent we recommend you obtain a BMP within 3 days of discharge from the hospital and follow-up with your primary care provider as an outpatient to discuss the results. A discharge summary will be sent to your primary care physician to ensure continuity of care. Please bring this discharge summary with you to your next office appointment so that your provider can review it at that time. Follow-up appointments: - Keep all your follow-up appointments as already scheduled. If you cannot make an appointment, notify your provider. - Please call to request a follow-up appointment with your primary care ph ysician within one week of discharge. Please let us know if you are unable to obtain an appointment Follow-up labs: - Please go to a lab nearest you and obtain the requested lab work. Please have this completed at least 3 hours before your doctor's appointment (or the day before your appointment if possible). Medications: - Your medication list has been reviewed and reconciled upon discharge to ensure accuracy and continuity of care. - You are provided with a list of all your current medications at this time. Please review this list closely and make note of any changes. - Please take all of your medications exactly as prescribed. - Tell your primary care provider if you cannot afford your medications. - Call your primary care provider if you are having any side effects or any other problems. - Call your primary care provider before taking any over the counter medications or supplements, including herbals and vitamins, because some of these may interact with your current medications and/or make your symptoms worse. Symptoms: Please call your primary care provider for symptoms including, but not limited to: fevers (temperatures greater than 100.4), chills, intractable nausea or vomiting, diarrhea, rash, shortness of breath, bleeding, pain, or if you experience any worsening of the symptoms that brought you to the hospital. For EMERGENCY and VERY SERIOUS health-related issues, such as chest pain, shortness of breath, or sudden onset of the symptoms that brought you to the hospital, you may need to call 911 or go directly to the Emergency Room It has been our privilege to take care of you during your hospital stay. And Above All Else Feel Better! Best Wishes, Jack Young MD PGY2 Resident, Family & Community Medicine [facility] at [facility] - [address], [address] MC: [place] [address] Stand-Alone Forms: My [facility], Smoking Cessation Medications and DC Order Prescriptions: No Action atorvastatin 10 mg tablet 10 mg PO DAILY RF: 0 amlodipine 10 mg tablet 10 mg PO DAILY RF: 0 metformin 1,000 mg tablet 1,000 mg PO BID RF: 0 albuterol sulfate [Ventolin HFA] 90 mcg/actuation HFA aerosol inhaler 2 - 3 puff INHALATION .Q2-3HRS PRN (Reason: Shortness Of Breath Or Wheezing) RF: 0 acetaminophen [Tylenol Extra Strength] 500 mg Tablet 1,000 mg PO Q6H PRN (Reason: Pain) RF: 0 Admission Data Admit Date/Time: 10/10/20 18:47 Attending Provider: Jacques Dejesus Admit Provider: Dhiraj Humphrey Primary Care Provider: Geronimo Valdes Other Providers: Dhiraj Humphrey
--- NOTE | 2020-10-12 10:11 | Pharmacy Report ---
Pharmacy Glycemic Short Note 2 - Date of Service October 12, 2020 - Glycemic Short BSG Results (Last 24 hours): 10/11/20 10/11/20 10/11/20 11:37 11:37 14:37 Glucose 281 H POC Glucose 302 H* 271 H 10/11/20 10/11/20 10/11/20 16:40 20:40 20:44 Glucose 216 H POC Glucose 280 H 228 H 10/12/20 10/12/20 10/12/20 03:03 05:25 07:18 Glucose 177 H 192 H POC Glucose 199 H OUTPATIENT ANTIDIABETIC REGIMEN: * metformin 1 gm PO BID ASSESSMENT: 10/12/20 * Patient's BSGs yesterday were [phone] mg/dL. He received a total of 89 units of insulin (25 units of basal and 64 units of bolus). * Fasting today is 199 mg/dL which is improved. * Continue scale determined yesterday with full weight-based stress of 1 today ... determined that patient did receive Dexamethasone 20 mg IV prior to chemotherapy so expect effects to dissipate either today or tomorrow. * For Novolog will tighten CR slightly until steroid effects dissipate. 10/11/20 * Mr Smart is a 65 y/o M who presented from the cancer center with tachycardia and hypotension. He was receiving chemotherapy so quite possibly received dexamethasone prior to this. * BSGs have been elevated. Received 10 units of IV insulin @ 0300 today due to hyperkalemia. Fasting BSG is 253 mg/dL. * Load with Lantus 35 units x 1 (weight-based stress of 2). Start weight-based dosing tomorrow morning. * Start Novolog weight-based stress of 3. * Additional doses this morning since patient already received AM insulin. PLAN FOR INPATIENT GLYCEMIC CONTROL: * Hold outpatient oral diabetes medications * Basal insulin * Lantus 0-18 units daily (0 units if BSG < 90 mg/dL; 12 units if BSG 90-140 mg/dL; 18 units if BSG > 140 mg/dL) * Bolus insulin * NovoLog per scale ACHS or Q6hrs while NPO * Goal Range: Low 110 mg/dL - High 140 mg/dL * Correction Factor: 15 mg/dL/unit * Nutritional / Prandial insulin per carb ratio of 1 unit per 4 grams CHO consumed
[2020-10-12 13:04] LABS: Partial Thromboplastin Ratio 1.3; Partial Thromboplastin Time 34.2 Seconds (21.0-31.0)
[2020-10-12] MEDS ORDERED: HEPARIN 100 UNIT/ML 5ML FLUSH FLUSH PRN (13:24)
--- NOTE | 2020-10-12 14:25 | Billing Data ---
Date of Service October 10, 2020 Coding Level of Care Code 91277 Initial Inpt Care Lvl 3
--- NOTE | 2020-10-12 15:22 | Discharge Summary ---
Date of Service October 12, 2020 Admission HPI Per Admitting Provider 65-year-old male with a past medical history colon cancer stage IV undergoing chemotherapeutic treatment, dyslipidemia, diabetes, hypertension who presents to the emergency department from [facility] after getting 4 hours of chemotherapy and becoming hypotensive and tachycardic during that time. Of note he received chemo approximately 2 weeks ago and was admitted after having a similar reaction. At that time he had been hypothermic, tachycardic, tach tachypneic, hypotensive and was admitted for severe sepsis. Today he states that he had some mild chills during chemotherapy with is not unusual for him. He denies any changes in vision, dizziness, headache, chest pain, shortness of breath. He says he has some of the normal chemotherapy associated nausea but no episodes of emesis or diarrhea. He states that he normally has a faint cough which has not changed and is not productive. He denies any numbness or tingling or generalized weakness. ED course:Initial vitals blood pressure 107/48, pulse rate of 120, respiratory rate 30, pulse ox 86 on room air. Afebrile.Due to ANA and creatinine of 2.18 unable to get CTA of chest to assess for pulmonary embolus.A total of 2 L of sodium chloride boluses. Is also initiated on a heparin drip with a bolus to treat presumed pulmonary embolus. Started on Levaquin for concerns of infection. Admission Exam Per Admitting Provider Constitutional: Laying in bed in no acute distress,speaking comfortably Card: RRR, no mrg Pulm: CTA BL, crackles at bases bilaterally, no cough, no rhonchi, breathing comfortably on 6L NC satting 93 Gi: nontender, nondistended, soft, no rebound, no guarding, normal bowel sounds Ext: 2+ peripheral pulses, no edema Neuro: A&Ox3, moving all extremities Principal Diagnosis Tumor lysis syndrome, pneumonia, adverse drug reaction resulting in sepsis and acute hypoxic respiratory failure in immunocompromised individual complicated by acute renal failure and metastatic stage IV colon cancer Discharge Exam General: No acute distress HEENT: Normocephalic atraumatic Neck: No significant lymphadenopathy, trachea midline, normal to visual inspection Cardiac: Regular rate and rhythm, normal S1, normal S2, I did not appreciated any significant murmurs rubs or gallops, I did not appreciate any significant pedal edema, No calf tenderness, capillary refill is less than 3 seconds Respiratory: Clear to auscultation bilaterally with symmetrical chest rise, I did not appreciate any significant wheezes, rales, rhonchi, no increased work of breathing GI: Normal bowel sounds, soft, nontender in all 4 quadrants, nondistended MSK: No sensory or motor changes, moves all extremities without issue, extremities are warm and well-perfused Skin: [place], clean, dry, intact. Neuro: Alert and oriented x4 Psych: Calm, cooperative, logical thought process Discharge Data Allergies Allergy/AdvReac Type Severity Reaction Status Date / Time cefepime Allergy Unknown Rash Verified 10/10/20 17:54 piperacillin [From Zosyn] Allergy Unknown Rash Verified 10/10/20 17:54 tazobactam [From Zosyn] Allergy Unknown Rash Verified 10/10/20 17:54 Consultations 10/10/20 18:24 ED Decision to Admit Stat Ordered Studies 10/10/20 18:30 US venous doppler LE Stat Hospital Course (1) Sepsis: PCP TO DO -Follow Up BMP (creatine, Potassium) -CT Angio P/E Protocol (Assess Need for Anti Coagulation) -Follow Up Regarding Plans for Chemo Therapy -Metformin DC'd, determine need for antihyperglycemic therapy 65 yo M with hx metastatic colon cancer, Dm2, HLD,HTN presenting with symptoms of tachycardia, tachypnea, hypothermia, #Tumor lysis syndrome, pneumonia, adverse drug reaction resulting in sepsis and acute hypoxic respiratory failure in immunocompromised individual On current chemo regimen previously had a similar episode approximately 2 weeks ago with similar laboratory presentation and symptomology. The patient recovered well with empiric antibiotic therapy with Augmentin and supportive care. Notable exceptions to this most recent episode is the significant hypoxia and need for 2 L of oxygen to maintain adequate saturations. The etiology of his presentation is likely multifactorial stemming from the actual chemotherapeutic agent, any associated consequences on the body. However given his immunocompromise status and concerning chest x-ray will provide Levaquin for antibiotic coverage as well. Furthermore given his active cancer, history of clot, hypoxia and suspicious vitals of pulmonary embolism is certainly possible as well. CBC obtained was abnormal however this can be explained by chemotherapy, pro-Garth was greater than 50 and lactate was elevated as well however it is unclear if this is secondary to chemotherapy/ cell . Patient continued to improve from a septic standpoint overnight no longer meeting criteria for sepsis. It is unclear the etiology of his underlying condition. His VQ scan was intermediate for pulmonary embolism and his white count came down after administration of antibiotics. Overall his breathing is improving and the patient continues to improve. -VQ scan consistent with pulmonary emboli -> apixaban -Continue Levaquin daily -> transition to p.o. complete 7 days as an outpt -LR at 140 -blood cultures pending ngtd -Urine culture demonstrating skin justin #Hypoxia Patient not previously requiring oxygen at baseline home. Initially required 6 L onset, has been weaned to 2 L of oxygen to maintain saturations. Etiology of his hypoxia is not entirely clear at present. Providing antibiotic therapy to cover for pneumonia.given history of DVT, current active cancer, likely prolonged sitting, and significant hypoxia of pulmonary emboli could explain his current presentation we are unable to obtain a CTA secondary to creatinine elevation therefore will be obtaining a VQ scan later today to look for incidental papillary emboli. In the interim we will provide heparin pending negative VQ scan. Finally this could represent progression of his metastatic disease as metastases are visible on lung CT and chest x-ray. 10/12 patient now comfortable on room air no longer requiring oxygen therapy. VQ scan obtained yesterday was indeterminate for pulmonary emboli, given the perfusion defects, active cancer, new increase hypoxia I think benefits of anticoagulation outweigh the risks. -Continue heparin -Plan to transition to apixaban -As needed O2 to remain saturations greater than 90, wean as tolerated -Tolerating room air #ANA secondary to suspected tumor lysis syndrome Given this is the second episode of elevated creatinine status post receiving chemotherapy I am concerned there is an element of tumor lysis syndrome versus generalized toxicity from the chemotherapeutic agent. Patient has not voided since prior to administration of the chemotherapy despite receiving significant fluids and p.o. hydration. Taken together with his elevated potassium, there is any concern for ARF. To that effect we will monitor BMPs every 6 hours until hyperkalemia and creatinine trending in the correct direction. In the interim avoid nephrotoxins, to consider discontinuing Metformin on discharge. His BMPs have continued to improve throughout the admission most recent creatinine was 1.9 which is significantly improved from yesterday, potassium is normalizing as well most recently 5.1. -Follow-up BMP as an outpatient #Stage IV colon cancer metastatic to multiple sites Obtains chemo at the [facility], currently has a medication that infused for 36 hours after initial infusion. Cannot locate notes regarding current chemotherapy regimen will obtain records. -Follow-up with hematology oncology as an outpatient discussed risk versus benefits of continuing treatment -To consider palliative approach #Diabetes Previously well controlled on 500 mg Metformin twice daily most recent A1c was 3 earlier this month was transition to [facility] during admission. Given the significant glucose elevation associated electrolyte derangements and complicated nature of this patient's presentation requesting pharmacy assistance in managing this patient's glycemic medications. Would recommend DC Metformin on discharge given his significant ANA and likely need for further nephrotoxic medications in the treatment of his cancer, will defer decisions regarding antihyperglycemia therapy to patient's primary care provider -Discontinue Metformin -Discuss diabetes regiment with outpatient provider #Dyslipidemia Continue atorvastatin FENa: Diabetes type 2 Code Status: Full code DVT PPX: Heparin PT/OT: Ordered Dispo: home Jack Young MD PGY 2, FCM This chart was completed utilizing [employer] voice recognition software. Grammatical errors, random word insertions, pronoun errors, and in complete sentences are an occasional consequence of the system. Any questions or concerns about the content, text, or information contained within the body of this dictation should be addressed directly to the physician for clarification. Total Time Total Time Spent Total Time Spent (In Minutes): 43 Discharge Plan Discharge Items Patient Disposition: Home - Self-Care Reason For Visit: ACUTE HYPOXIC RESPIRATORY FAILURE, HYPOTENSION Discharge Diagnosis: Tumor lysis syndrome, pneumonia, adverse drug reaction resulting in sepsis and acute hypoxic respiratory failure in immunocompromised individual complicated by acute renal failure and metastatic stage IV colon cancer Activity: Resume your previous activity Non-emergency contact: Primary Care Provider and Oncologist Call non-emergency contact if: you have any medication questions, your pain is worsening and your temperature is above 101 Follow-up/Referrals: Geronimo Valdes [Primary Care Provider] - Diet: Carb Consistent or DM2 Addtl Attending Provider Instructions: Care instructions: You were admitted to [facility] for treatment of pulmonary embolism, acute kidney failure, and pneumonia. While hospitalized we obtained i maging studies which were suggestive of a pulmonary embolism. To that extent we placed you on a blood thinner apixaban. You are to take this as instructed. Additionally while hospitalized there was some concern for pneumonia given your elevated white count, increasing respiratory symptoms, and imaging studies to that effect we have placed you on a medication called Levaquin. Please continue to take this for 7more days as an outpatient to complete a total of a 10-day course. Additionally while hospitalized you laboratory numbers indicated that your kidneys were injured. The source of kidney injury is not entirely clear, could be secondary to effects of the chemotherapy versus symptoms from cell destruction in your body versus a serendipitous finding. To that extent we recommend you obtain a BMP within 3 days of discharge from the hospital and follow-up with your primary care provider as an outpatient to discuss the results. Medications: Eliquis(apixaban): 5 mg twice daily first dose tonight at bedtime, try your hardest to take this medication at the same time every day and spaced 12 hours apart Levaquin(levofloxacin): 750 mg daily To do list: 1) consume at least 80 fluid ounces, 4 x 20 ounce water bottles, 8 x 12 ounce water bottles per day 2) contact your primary care provider tomorrow and request that they order a basic metabolic profile please complete this test within the next 3 days 3) schedule an appointment with your primary care provider within the next week to discuss the results of this test 4) request your primary care provider obtain CT angiography with a PE protocol 5) discuss the results of this test in the context of your disease and the need for chronic anticoagulation 6) follow-up with your oncologist regarding your plans for chemotherapy 7) Discuss with your primary care provider the need for continued diabetes treatment A discharge summary will be sent to your primary care physician to ensure continuity of care. Please bring this discharge summary with you to your next office appointment so that your provider can review it at that time. Follow-up appointments: - Keep all your follow-up appointments as already scheduled. If you cannot make an appointment, notify your provider. - Please call to request a follow-up appointment with your primary care physician within one week of discharge. Please let us know if you are unable to obtain an appointment Follow-up labs: - Please go to a lab nearest you and obtain the requested lab work. Please have this completed at least 3 hours before your doctor's appointment (or the day before your appointment if possible). Medications: - Your medication list has been reviewed and reconciled upon discharge to ensure accuracy and continuity of care. - You are provided with a list of all your current medications at this time. Please review this list closely and make note of any changes. - Please take all of your medications exactly as prescribed. - Tell your primary care provider if you cannot afford your medications. - Call your primary care provider if you are having any side effects or any other problems. - Call your primary care provider before taking any over the counter medications or supplements, including herbals and vitamins, because some of these may interact with your current medications and/or make your symptoms worse. Symptoms: Please call your primary care provider for symptoms including, but not limited to: fevers (temperatures greater than 100.4), chills, intractable nausea or vomiting, diarrhea, rash, shortness of breath, bleeding, pain, or if you experience any worsening of the symptoms that brought you to the hospital. For EMERGENCY and VERY SERIOUS health-related issues, such as chest pain, shortness of breath, or sudden onset of the symptoms that brought you to the hospital, you may need to call 911 or go directly to the Emergency Room It has been our privilege to take care of you during your hospital stay. And Above All Else Feel Better! Best Wishes, Jack Young MD PGY2 Resident, Family & Community Medicine [facility] Residency at [facility] - [address], [address] MC: [place] [address] Pending Studies at Discharge: No Stand-Alone Forms: My [facility], Smoking Cessation Medications and DC Order Prescriptions: New levofloxacin 750 mg tablet 750 mg PO DAILY 7 Days Qty: 7 RF: 0 Eliquis 5 mg tablet 5 mg PO Q12H 30 Days Qty: 60 RF: 0 Continued atorvastatin 10 mg tablet 10 mg PO DAILY RF: 0 amlodipine 10 mg tablet 10 mg PO DAILY RF: 0 albuterol sulfate [Ventolin HFA] 90 mcg/actuation HFA aerosol inhaler 2 - 3 puff INHALATION .Q2-3HRS PRN (Reason: Shortness Of Breath Or Wheezing) RF: 0 acetaminophen [Tylenol Extra Strength] 500 mg Tablet 1,000 mg PO Q6H PRN (Reason: Pain) RF: 0 Discontinued metformin 1,000 mg tablet 1,000 mg PO BID RF: 0 Discharge Orders: Discharge Order (Routine); Ordered 10/12/20 Ordered By: Jack Young Admission Data Admit Date/Time: 10/10/20 18:47 Attending Provider: Jacques Dejesus Admit Provider: Dhiraj Humphrey Primary Care Provider: Geronimo Valdes Other Providers: Dhiraj Humphrey Resident Activity Tracking Resident Involvement: Resident Care Provided Care Provided: [facility]
[2020-10-12] MEDS ORDERED: APIXABAN 5 MG TABLET PO SCH ×2 (16:30→21:00)
--- NOTE | 2020-10-12 18:09 | Billing Data ---
Date of Service October 12, 2020 Coding Level of Care Code D/C Day Management <30 mins
== END 2020-10-12 17:30 | disposition home or self-care (01) | DRG 867 ==
LOC: ED 16:42 → SUATTDRO 18:47 → 2S 18:47